=== PATIENT | female | born 1970 | race Hispanic/Latino ===

== ENCOUNTER 2016-06-06 20:25 | Inpatient (IN) | payer MEDICARE ==
[2016-06-06] MEDS ORDERED: NACL 0.9% 1000 ML 1,000 ML IV ONE (20:43)
--- NOTE | 2016-06-06 21:19 | Emergency Department Report ---
HPI - General Time Seen by Provider: 06/06/16 21:12 - HPI HPI: This is a 46-year-old Afro-[place] female who presents to the emergency department with what appears to be possible sepsis. The chart lists the complaint as shortness of breath and altered mental status. 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 The patient is nonverbal. The [place] worker who is with the patient is a poor historian about the reasons for this patient's presentation. The patient appears to present with a fast heart rate. Otherwise there is no known past medical history as she is a poor historian. ED Past Medical Hx - Past Medical History Previous Medical History?: Yes Hx Psychiatric Treatment: Yes (unknown) - Social History Smoking Status: Unknown if ever smoked - Medications Home Medications: Home Medications Medication Instructions Recorded Confirmed Last Taken Type Unobtainable 06/07/16 06/07/16 Unknown History ED Review of Systems ROS: Stated complaint: AMS, JASON Other details as noted in HPI Comment: Unobtainable due to pts medical conditions Physical Exam - Physical Exam Physical Exam: GENERAL: The patient is well-developed well-nourished. HEENT: Normocephalic. Atraumatic. Pupils equal reactive to light bilaterally. Patient has moist mucous membranes. NECK: Supple. Trachea is midline. CHEST/LUNGS: Coarse breath sounds. There is some rhonchi to the right base. Mild tachypnea but no accessory muscle use. There is no respiratory distress noted. HEART/CARDIOVASCULAR: Regular. There is moderate tachycardia. There is no gallop rub or murmur. ABDOMEN: Abdomen is soft, nontender. Patient has normal bowel sounds. There is no abdominal distention. SKIN: Skin is hot but dry. NEURO: Patient is awake but nonverbal. Patient displays catatonia. Does not follow any commands. MUSCULOSKELETAL: There is no tenderness or deformity. There is no limitation range of motion. There is no evidence of acute injury. ED Medical Decision Making - Lab Data Result diagrams: 06/06/16 21:56 06/06/16 21:56 - EKG Data -: EKG Interpreted by Me EKG shows normal: sinus rhythm, axis, intervals, QRS complexes (Left anterior fascicular block), ST-T waves Rate: normal - EKG Data When compared to previous EKG there are: previous EKG unavailable Interpretation: other (left anterior fascicular block) - Radiology Data Radiology results: report reviewed, image reviewed interpreted by me: Chest x-ray shows some infiltrates to the right lower lobe consistent with pneumonia. CT of the head does not show any bleed, shift, mass or any acute process. There are some signs of sinusitis. 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 Patient appears to be septic secondary to right lower lobe pneumonia. She was given IV fluid, antibiotics and there has been some improvement in her vitals. The patient has a leukocytosis, some hypernatremia, hypokalemia and some renal insufficiency. Unable to assess patient's altered mental status that she is constantly in a catatonic state at this point. She'll be admitted to the hospital for IV fluids , antibiotics and further evaluation and treatment and has been accepted for admission by the hospitalist, Dr. Maxwell. - Differential Diagnosis sepsis, pneumonia, brain bleed, CVA, UTI Critical Care Time: No Critical care attestation.: If time is entered above; I have spent that time in minutes in the direct care of this critically ill patient, excluding procedure time. ED Disposition Clinical Impression: Catatonia, Hypernatremia, Hypokalemia Sepsis Qualifiers: Sepsis type: sepsis due to unspecified organism Qualified Code(s): A41.9 - Sepsis, unspecified organism Pneumonia Qualifiers: Pneumonia type: due to unspecified organism Laterality: right Lung location: lower lobe of lung Qualified Code(s): J18.9 - Pneumonia, unspecified organism Disposition: OP ADMITTED IP TO THIS HOSP Is pt being admited?: Yes Condition: Fair Time of Disposition: 05:10
[2016-06-06 21:33] LABS: Urine Drugs of Abuse Note Disclamer
[2016-06-06 21:48] LABS: Mucus,Urine 3+ /HPF
[2016-06-06 21:57] LABS: Bilirubin,Urine Negative (Negative); Blood,Urine Large (Negative); Ketones,Urine 15 mg/dL (Negative); Urobilinogen,Urine < 2.0 mg/dL (<2.0)
[2016-06-06 21:58] LABS: Leukocyte Esterase,Urine Negative (Negative); Nitrite,Urine Negative (Negative)
--- NOTE | 2016-06-06 22:02 | XRay Report ---
FINAL REPORT PROCEDURE: XR CHEST 1V AP TECHNIQUE: Chest radiograph anteroposterior view. CPT 93194 HISTORY: possible Sepsis COMPARISON: No prior studies are available for comparison. FINDINGS: Heart: Normal. Mediastinum/Vessels: Normal. Lungs/Pleural space: The lungs are well-expanded. There are infiltrates at the right lung base. There are no effusions or pneumothoraces per. Bony thorax: No acute osseous abnormality. Life support devices: None. IMPRESSION: Right lower lobe pneumonitis..
[2016-06-06 22:16] LABS: Hematocrit 45.9 % (30.3-42.9); Hemoglobin 15.3 gm/dl (10.1-14.3); Mean Corpuscular HGB Conc 33 % (30-34); Mean Corpuscular Hemoglobin 30 pg (28-32); Mean Corpuscular Volume 90 fl (79-97); Platelet Count 198 K/mm3 (140-440); Red Cell Distribution Width 13.5 % (13.2-15.2); White Blood Count 17.6 K/mm3 (4.5-11.0)
[2016-06-06] MEDS ORDERED: ZITHROMAX 500 MG in NACL 0.9% 250ML 250 ML IV ONE (22:21)
[2016-06-06] MEDS ORDERED: ROCEPHIN/NS 1 GM/50 ML 50 ML IV ONE (22:21)
[2016-06-06 22:25] LABS: INR 1.28 (0.87-1.13)
[2016-06-06 22:41] LABS: Albumin 4.3 g/dL (3.9-5); Albumin/Globulin Ratio 1.3 %; BUN/Creatinine Ratio 28.46; Chloride 104.4 mmol/L (98-107); Total Protein 7.5 g/dL (6.3-8.2)
[2016-06-06 23:36] LABS: Blastocytes % (Manual) 0 %
[2016-06-06 23:37] LABS: Basophils % (Manual) 0 % (0.0-1.8); Eosinophils % (Manual) 0 % (0.0-4.3); Platelet Estimate Consistent w Auto; RBC Morphology Normal
[2016-06-06 23:38] LABS: Diff Status Complete
[2016-06-06] MEDS: KCL 10MEQ/100ML 100 ML IV SCH (23:39)
[2016-06-07] MEDS: KCL 10MEQ/100ML 100 ML IV SCH ×3 (01:00→03:12)
--- NOTE | 2016-06-07 02:47 | Cat Scan Report ---
FINAL REPORT PROCEDURE: CT HEAD/BRAIN WO CON TECHNIQUE: Computerized tomography of the head was performed without contrast material. HISTORY: AMS COMPARISON: No prior studies are available for comparison. FINDINGS: Skull and scalp: Normal. Paranasal sinuses: There fluid in the sphenoid sinus. The paranasal sinuses are otherwise clear.. Ventricles and subarachnoid spaces: Normal. Cerebrum: No evidence of hemorrhage, acute infarction or mass . Cerebellum and brainstem: No evidence of hemorrhage, acute infarction or mass. Vasculature: Normal. Comments: None. IMPRESSION: There is no intracranial abnormality. There is sphenoid sinusitis.
[2016-06-07] MEDS ORDERED: MILK OF MAGNESIA PO PRN (03:41)
[2016-06-07] MEDS ORDERED: DULCOLAX PR PRN (03:41)
--- NOTE | 2016-06-07 03:41 | History and Physical Report ---
History of Present Illness Date of examination: 06/07/16 Date of admission: 06/07/16 Chief complaint: SOB, tachycardia History of present illness: This is a 46-year-old female presents from [facility] for tachycardia and tachypnea/dyspnea. The patient and the [place] worker and that has accompanied the patient is unable to give any history. All the history was obtained from the [place] and ER record. 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 Patient developed tachycardia and shortness of breath which prompted the transferred to our facility for further evaluation. Patient does not respond to any questions. Past History Past Medical History: other (schizophrenia) Past Surgical History: Other (unknown due to mental status) Social history: other (unknown due to mental status) Family history: other (unknown due to mental status) Medications and Allergies Allergies Allergy/AdvReac Type Severity Reaction Status Date / Time No Known Allergies Allergy Verified 06/06/16 21:14 Review of Systems ROS unobtainable: due to mental status Exam - Constitutional Vitals: Temp Pulse Resp BP Pulse Ox 113 H 20 119/74 90 06/07/16 01:00 06/07/16 01:00 06/07/16 01:00 06/07/16 01:00 General appearance: Present: no acute distress, well-nourished - EENT Eyes: Present: PERRL ENT: hearing intact, clear oral mucosa - Neck Neck: Present: supple, normal ROM - Respiratory Respiratory effort: normal Respiratory: bilateral: diminished, rhonchi (R>L) - Cardiovascular Heart Sounds: Present: S1 & S2. Absent: rub, click - Extremities Extremities: pulses symmetrical, No edema Peripheral Pulses: within normal limits - Abdominal General gastrointestinal: Present: soft, non-tender, non-distended, normal bowel sounds Female genitourinary: Present: normal - Integumentary Integumentary: Present: clear, warm, dry - Musculoskeletal Musculoskeletal: gait normal, strength equal bilaterally - Psychiatric Psychiatric: appropriate mood/affect, intact judgment & insight - Neurologic Neurologic: CNII-XII intact, moves all extremities Results - Labs CBC & Chem 7: 06/06/16 21:56 06/06/16 21:56 Labs: Laboratory Last Values WBC 17.6 K/mm3 (4.5-11.0) H 06/06/16 21:56 RBC 5.10 M/mm3 (3.65-5.03) H 06/06/16 21:56 Hgb 15.3 gm/dl (10.1-14.3) H 06/06/16 21:56 Hct 45.9 % (30.3-42.9) H 06/06/16 21:56 MCV 90 fl (79-97) 06/06/16 21:56 MCH 30 pg (28-32) 06/06/16 21:56 MCHC 33 % (30-34) 06/06/16 21:56 RDW 13.5 % (13.2-15.2) 06/06/16 21:56 Plt Count 198 K/mm3 (140-440) 06/06/16 21:56 Add Manual Diff Complete 06/06/16 21:56 Total Counted 100 06/06/16 21:56 Seg Neutrophils % Bank Guard 06/06/16 21:56 Seg Neuts % (Manual) 95.0 % (40.0-70.0) H 06/06/16 21:56 Band Neutrophils % 1.0 % 06/06/16 21:56 Lymphocytes % (Manual) 3.0 % (13.4-35.0) L 06/06/16 21:56 Reactive Lymphs % (Man) 0 % 06/06/16 21:56 Monocytes % (Manual) 1.0 % (0.0-7.3) 06/06/16 21:56 Eosinophils % (Manual) 0 % (0.0-4.3) 06/06/16 21:56 Basophils % (Manual) 0 % (0.0-1.8) 06/06/16 21:56 Metamyelocytes % 0 % 06/06/16 21:56 Myelocytes % 0 % 06/06/16 21:56 Promyelocytes % 0 % 06/06/16 21:56 Blast Cells % 0 % 06/06/16 21:56 Nucleated RBC % Not Reportable 06/06/16 21:56 Seg Neutrophils # Man 16.7 K/mm3 (1.8-7.7) H 06/06/16 21:56 Band Neutrophils # 0.2 K/mm3 06/06/16 21:56 Lymphocytes # (Manual) 0.5 K/mm3 (1.2-5.4) L 06/06/16 21:56 Abs React Lymphs (Man) 0.0 K/mm3 06/06/16 21:56 Monocytes # (Manual) 0.2 K/mm3 (0.0-0.8) 06/06/16 21:56 Eosinophils # (Manual) 0.0 K/mm3 (0.0-0.4) 06/06/16 21:56 Basophils # (Manual) 0.0 K/mm3 (0.0-0.1) 06/06/16 21:56 Metamyelocytes # 0.0 K/mm3 06/06/16 21:56 Myelocytes # 0.0 K/mm3 06/06/16 21:56 Promyelocytes # 0.0 K/mm3 06/06/16 21:56 Blast Cells # 0.0 K/mm3 06/06/16 21:56 WBC Morphology Not Reportable 06/06/16 21:56 Hypersegmented Neuts Not Reportable 06/06/16 21:56 Hyposegmented Neuts Not Reportable 06/06/16 21:56 Hypogranular Neuts Not Reportable 06/06/16 21:56 Smudge Cells Not Reportable 06/06/16 21:56 Toxic Granulation Not Reportable 06/06/16 21:56 Toxic Vacuolation Not Reportable 06/06/16 21:56 Dohle Bodies Not Reportable 06/06/16 21:56 Pelger-Huet Anomaly Not Reportable 06/06/16 21:56 Guerda Rods Not Reportable 06/06/16 21:56 Platelet Estimate Consistent w auto 06/06/16 21:56 Clumped Platelets Not Reportable 06/06/16 21:56 Plt Clumps, EDTA Not Reportable 06/06/16 21:56 Large Platelets Not Reportable 06/06/16 21:56 Giant Platelets Not Reportable 06/06/16 21:56 Platelet Satelliting Not Reportable 06/06/16 21:56 Plt Morphology Comment Not Reportable 06/06/16 21:56 RBC Morphology Normal 06/06/16 21:56 Dimorphic RBCs Not Reportable 06/06/16 21:56 Polychromasia Not Reportable 06/06/16 21:56 Hypochromasia Not Reportable 06/06/16 21:56 Poikilocytosis Not Reportable 06/06/16 21:56 Anisocytosis Not Reportable 06/06/16 21:56 Microcytosis Not Reportable 06/06/16 21:56 Macrocytosis Not Reportable 06/06/16 21:56 Spherocytes Not Reportable 06/06/16 21:56 Pappenheimer Bodies Not Reportable 06/06/16 21:56 Sickle Cells Not Reportable 06/06/16 21:56 Target Cells Not Reportable 06/06/16 21:56 Tear Drop Cells Not Reportable 06/06/16 21:56 Ovalocytes Not Reportable 06/06/16 21:56 Helmet Cells Not Reportable 06/06/16 21:56 [place] Bodies Not Reportable 06/06/16 21:56 Frost Rings Not Reportable 06/06/16 21:56 Stacy Cells Not Reportable 06/06/16 21:56 Bite Cells Not Reportable 06/06/16 21:56 Crenated Cell Not Reportable 06/06/16 21:56 Elliptocytes Not Reportable 06/06/16 21:56 Acanthocytes (Spur) Not Reportable 06/06/16 21:56 Rouleaux Not Reportable 06/06/16 21:56 Hemoglobin C Crystals Not Reportable 06/06/16 21:56 Schistocytes Not Reportable 06/06/16 21:56 Malaria parasites Not Reportable 06/06/16 21:56 Chago Bodies Not Reportable 06/06/16 21:56 Hem Pathologist Commnt No 06/06/16 21:56 PT 15.9 Sec. (12.2-14.9) H 06/06/16 21:56 INR 1.28 (0.87-1.13) H 06/06/16 21:56 VBG pH 7.437 (7.320-7.420) H 06/06/16 21:56 Sodium 150 mmol/L (137-145) H 06/06/16 21:56 Potassium 3.0 mmol/L (3.6-5.0) L 06/06/16 21:56 Chloride 104.4 mmol/L (98-107) 06/06/16 21:56 Carbon Dioxide 25 mmol/L (22-30) 06/06/16 21:56 Anion Gap 24 mmol/L 06/06/16 21:56 BUN 37 mg/dL (7-17) H 06/06/16 21:56 Creatinine 1.3 mg/dL (0.7-1.2) H 06/06/16 21:56 Estimated GFR 44 ml/min 06/06/16 21:56 BUN/Creatinine Ratio 28.46 % 06/06/16 21:56 Glucose 107 mg/dL (65-100) H 06/06/16 21:56 Lactic Acid 1.0 mmol/L (0.7-2.0) 06/06/16 23:35 Calcium 9.0 mg/dL (8.4-10.2) 06/06/16 21:56 Total Bilirubin 1.0 mg/dL (0.1-1.2) 06/06/16 21:56 AST 195 units/L (5-40) H 06/06/16 21:56 ALT 75 units/L (7-56) H 06/06/16 21:56 Alkaline Phosphatase 56 units/L (35-129) 06/06/16 21:56 Total Protein 7.5 g/dL (6.3-8.2) 06/06/16 21:56 Albumin 4.3 g/dL (3.9-5) 06/06/16 21:56 Albumin/Globulin Ratio 1.3 % 06/06/16 21:56 Urine Color Dark yellow (Yellow) 06/06/16 21:23 Urine Turbidity Clear (Clear) 06/06/16 21:23 Urine pH 6.0 (5.0-7.0) 06/06/16 21:23 Ur Specific [place] 1.025 (1.003-1.030) 06/06/16 21:23 Urine Protein 30 mg/dl mg/dL (Negative) 06/06/16 21:23 Urine Glucose (UA) Negative mg/dL (Negative) 06/06/16 21:23 Urine Ketones 15 mg/dL (Negative) 06/06/16 21:23 Urine Blood Large (Negative) 06/06/16 21:23 Urine Nitrite Negative (Negative) 06/06/16 21:23 Ur Reducing Substances Not Reportable 06/06/16 21:23 Urine Bilirubin Negative (Negative) 06/06/16 21:23 Urine Ictotest Not Reportable 06/06/16 21:23 Urine Urobilinogen < 2.0 mg/dL (<2.0) 06/06/16 21:23 Ur Leukocyte Esterase Negative (Negative) 06/06/16 21:23 Urine WBC (Auto) 9.0 /HPF (0.0-6.0) H 06/06/16 21:23 Urine RBC (Auto) 4.0 /HPF (0.0-6.0) 06/06/16 21:23 U Epithel Cells (Auto) 2.0 /HPF (0-13.0) 06/06/16 21:23 Urine Mucus 3+ /HPF 06/06/16 21:23 Urine HCG, Qual Negative (Negative) 06/06/16 21:23 Urine Opiates Screen Presumptive negative 06/06/16 21:23 Urine Methadone Screen Presumptive negative 06/06/16 21:23 Ur Barbiturates Screen Presumptive negative 06/06/16 21:23 Ur Phencyclidine Scrn Presumptive negative 06/06/16 21:23 Ur Amphetamines Screen Presumptive negative 06/06/16 21:23 U Benzodiazepines Scrn Presumptive negative 06/06/16 21:23 Urine Cocaine Screen Presumptive negative 06/06/16 21:23 U Marijuana (THC) Screen Presumptive negative 06/06/16 21:23 Drugs of Abuse Note Disclamer 06/06/16 21:23 Plasma/Serum Alcohol < 0.01 gm% (0-0.07) 06/06/16 21:56 Assessment and Plan Assessment and plan: 1. Sepsis. Patient will be admitted and placed on the sepsis pathway. Follow- up blood and sputum cultures. Trend lactate levels. 2. Healthcare associated right lower lobe pneumonia. Patient will be started on the pneumonia pathway with IV antibiotics. Swallowing evaluation to rule out aspiration. 3. Acute renal failure. Etiology likely secondary to vasomotor nephropathy +/- acute kidney injury from ATN/sepsis. Patient will receive IV fluid hydration. Recheck BMP in the morning. 4. Schizophrenia. Patient will have further follow-up with psychiatry when stable. 5. Hypokalemia. Replete potassium. 6. DVT prophylaxis. Lovenox daily.
--- NOTE | 2016-06-07 05:31 | Admit Criteria Form ---
Admission Criteria Documentation: SEPSIS and OTHER FEBRILE ILLNESS, W/O FOCAL INFECTION Clinical Indications for Admission to Inpatient Care ( Place 'X' for any and all applicable criteria): Admission is indicated for ANY ONE of the following (1)(2)(3)(4): [ ] I. Bacteremia [ ]II. Suspected or identified specific infection requiring hospitalization (eg, meningitis, endocarditis) [ ]III. Hemodynamic instability [X]IV. Altered mental status [ ]V. Failure or unavailability of outpatient antimicrobial treatment [ ]. Hypoxemia [ ]VII. Seizures [ ]VIII. High-risk febrile neutropenia [ ]IX. Need for parenteral antibiotic in patient who is likely to abuse vascular access device (eg, injection drug user) [A](7) [ ]X. Temperature greater than 104.9 degrees F (40.5 degrees C) (oral) [X ]XI. Inpatient admission required rather than observation care because of ANY ONE of the following: [ ]1) Specific infection identified that is too severe for outpatient treatment or observation care trial [ ]2) Metabolic disorder (eg, hypoglycemia, hyperglycemia, metabolic acidosis) that is severe or persistent [ ]3) Temperature greater than 103.1 degrees F (39.5 degrees C) ( oral) that is not responsive to observation care treatment [ ]4) IV fluid to replace significant ongoing (eg, for over 24 hours) losses (> 3 L/m2 per day) [ ]5) Supplemental oxygen or respiratory treatments for over 24 hours that is performable only in acute inpatient setting [ ]6) Parenteral nutrition regimen need that must be implemented on inpatient basis [ ]7) Strict or protective (eg, laminar flow) isolation [X ]8) Other condition, treatment or monitoring requiring inpatient admission Extended stay beyond goal length of stay may be needed for(1)(3) [ ]a) Sepsis or septic shock(22) [ ]b) Positive blood cultures [ ]c) Insufficient oral intake [ ]d) High-risk febrile neutropenia(29)(30) [ ]e) Continued fever and clinical instability [ ]f) Clinically active comorbid illness (e.g,heart failure, renal failure , diabetes) The original [facility] content created by Khari Munoz has been revised. The portions of the content which have been revised are identified through the use of italic text or in bold, and [email or web address] has neither reviewed nor approved the modified material. All other unmodified content is copyright [facility]. Please see references footnoted in the original [facility] edition 2016 Admission Criteria Met: Yes
[2016-06-07] MEDS: D5W/0.45% NACL/KCL 20 MEQ 1,000 ML IV SCH ×2 (06:56→22:50)
[2016-06-07] MEDS: ZOSYN/NS 4.5GM/100ML 100 ML IV SCH ×4 (07:58→23:37)
[2016-06-07] MEDS ORDERED: K-DUR PO ONE (10:00)
[2016-06-07] MEDS: LOVENOX SUB-Q SCH (10:45)
[2016-06-07] MEDS: LEVAQUIN 750MG/150ML 150 ML IV SCH (10:45)
[2016-06-07 10:54] LABS: BUN/Creatinine Ratio 32.72; Calcium 8.6 mg/dL (8.4-10.2); Chloride 108.8 mmol/L (98-107); Potassium 3.6 mmol/L (3.6-5.0)
--- NOTE | 2016-06-07 14:39 | Event Note ---
Date: 06/07/16 Patient seen and examined, noted some clinical improvement with respiratory status but still tachycardic, will increase fluids, start po intake, obtain speech eval monitor Labs and obtain psych consultation.
[2016-06-07 14:43] LABS: Calcium 8.6 mg/dL (8.4-10.2); Chloride 110.1 mmol/L (98-107); Potassium 3.5 mmol/L (3.6-5.0)
[2016-06-07] MEDS: TYLENOL PR PRN (16:04)
[2016-06-07] MEDS ORDERED: HALDOL IM PRN (23:34)
[2016-06-08] MEDS: ZOSYN/NS 4.5GM/100ML 100 ML IV SCH ×3 (06:18→17:55)
[2016-06-08 07:09] LABS: Basophils % (Auto) 0.1 % (0.0-1.8); Eosinophils % (Auto) 0.2 % (0.0-4.3); Hematocrit 41.8 % (30.3-42.9); Hemoglobin 13.8 gm/dl (10.1-14.3); Mean Corpuscular HGB Conc 33 % (30-34); Mean Corpuscular Hemoglobin 30 pg (28-32); Mean Corpuscular Volume 90 fl (79-97); Platelet Count 185 K/mm3 (140-440); Red Blood Count 4.65 M/mm3 (3.65-5.03); White Blood Count 10.5 K/mm3 (4.5-11.0)
[2016-06-08 07:13] LABS: Albumin 3.7 g/dL (3.9-5); Albumin/Globulin Ratio 1.3 %; BUN/Creatinine Ratio 26.66; Bilirubin,Total 0.7 mg/dL (0.1-1.2); Calcium 8.7 mg/dL (8.4-10.2); Potassium 3.8 mmol/L (3.6-5.0); Total Protein 6.6 g/dL (6.3-8.2)
[2016-06-08] MEDS: LEVAQUIN 750MG/150ML 150 ML IV SCH (09:50)
[2016-06-08] MEDS: LOVENOX SUB-Q SCH (09:50)
[2016-06-08 10:44] LABS: Sodium, Urine 26 mEq/L
[2016-06-08] MEDS: D5W 1,000 ML IV SCH ×2 (11:30→21:38)
--- NOTE | 2016-06-08 12:34 | Progress Note ---
Assessment and Plan Assessment and plan: 46-year-old female presents from [facility] for tachycardia and tachypnea/dyspnea. The patient and the [facility] worker and that has accompanied the patient is unable to give any history. All the history was obtained from the [facility] and ER record. 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 Patient developed tachycardia and shortness of breath which prompted the transferred to our facility for further evaluation. Patient does not respond to any questions. 1. Sepsis. Leukocytosis improving Continue to follow cultures, continue antibiotics at this point. 2. Healthcare associated right lower lobe pneumonia. Rule out gram-negative pneumonia. As noted above. Aspiration precautions. Speech evaluation pending. 3. Acute renal failure. Etiology likely secondary to vasomotor nephropathy +/- acute kidney injury from ATN/sepsis. Patient will receive IV fluid hydration. Recheck BMP in the morning. 4. Hypernatremia-we'll check urine lites. Change IV fluids to D5W. Monitor sodium every 6 hours. 5. Schizophrenia. Awaiting psych input. 6. Hypokalemia. Replete potassium. 7. DVT prophylaxis. Lovenox daily History Interval history: Follow sepsis Patient seen and examined this morning in no acute distress, she remains Non verbal, ?catatonic state from her psych hx. No adverse event noted by nursing. Was febrile overnight. No adverse events reported to me by nursing staff Hospitalist Physical - Physical exam Narrative exam: VITAL SIGNS: Reviewed. GENERAL: The patient appeared ill otherwise in no acute distress. Vital signs as documented. HEAD: No signs of head trauma. EYES: Pupils are equal. Extraocular motions intact. EARS: Hearing grossly intact. MOUTH: Oropharynx is normal. NECK: No adenopathy, no JVD. CHEST: Chest with diminished breath sounds bilaterally. No wheezes, rales, or rhonchi. CARDIAC: Regular rate and rhythm. S1 and S2, without murmurs, gallops, or rubs. VASCULAR: Trace Edema. Peripheral pulses normal and equal in all extremities. ABDOMEN: Soft, without detectable tenderness. No sign of distention. No rebound or guarding, and no masses palpated. Bowel Sounds normal. MUSCULOSKELETAL: Good range of motion of all major joints. Extremities without clubbing, cyanosis or trace edema bilateral upper extremities. NEUROLOGIC EXAM: awake but lathergic, not following commands. No focal sensory or strength deficits. moves head in direction of speaker PSYCHIATRIC: Mood normal. SKIN: mild bulea in the right wrist area- 3 spots. no erythema - Constitutional Vitals: Temp Pulse Resp BP Pulse Ox 99.5 F 88 20 125/68 98 06/08/16 08:00 06/08/16 09:00 06/08/16 09:00 06/08/16 09:00 06/08/16 09:25 General appearance: Present: no acute distress, well-nourished Results - Labs CBC & Chem 7: 06/08/16 06:39 06/08/16 09:37 Labs: Laboratory Last Values WBC 10.5 K/mm3 (4.5-11.0) 06/08/16 06:39 RBC 4.65 M/mm3 (3.65-5.03) 06/08/16 06:39 Hgb 13.8 gm/dl (10.1-14.3) 06/08/16 06:39 Hct 41.8 % (30.3-42.9) 06/08/16 06:39 MCV 90 fl (79-97) 06/08/16 06:39 MCH 30 pg (28-32) 06/08/16 06:39 MCHC 33 % (30-34) 06/08/16 06:39 RDW 14.0 % (13.2-15.2) 06/08/16 06:39 Plt Count 185 K/mm3 (140-440) 06/08/16 06:39 Lymph % (Auto) 6.0 % (13.4-35.0) L 06/08/16 06:39 [place] % (Auto) 5.5 % (0.0-7.3) 06/08/16 06:39 Eos % (Auto) 0.2 % (0.0-4.3) 06/08/16 06:39 Baso % (Auto) 0.1 % (0.0-1.8) 06/08/16 06:39 Lymph # 0.6 K/mm3 (1.2-5.4) L 06/08/16 06:39 [place] # 0.6 K/mm3 (0.0-0.8) 06/08/16 06:39 Eos # 0.0 K/mm3 (0.0-0.4) 06/08/16 06:39 Baso # 0.0 K/mm3 (0.0-0.1) 06/08/16 06:39 Add Manual Diff Complete 06/06/16 21:56 Total Counted 100 06/06/16 21:56 Seg Neutrophils % 88.2 % (40.0-70.0) H 06/08/16 06:39 Seg Neuts % (Manual) 95.0 % (40.0-70.0) H 06/06/16 21:56 Band Neutrophils % 1.0 % 06/06/16 21:56 Lymphocytes % (Manual) 3.0 % (13.4-35.0) L 06/06/16 21:56 Reactive Lymphs % (Man) 0 % 06/06/16 21:56 Monocytes % (Manual) 1.0 % (0.0-7.3) 06/06/16 21:56 Eosinophils % (Manual) 0 % (0.0-4.3) 06/06/16 21:56 Basophils % (Manual) 0 % (0.0-1.8) 06/06/16 21:56 Metamyelocytes % 0 % 06/06/16 21:56 Myelocytes % 0 % 06/06/16 21:56 Promyelocytes % 0 % 06/06/16 21:56 Blast Cells % 0 % 06/06/16 21:56 Nucleated RBC % Not Reportable 06/06/16 21:56 Seg Neutrophils # 9.2 K/mm3 (1.8-7.7) H 06/08/16 06:39 Seg Neutrophils # Man 16.7 K/mm3 (1.8-7.7) H 06/06/16 21:56 Band Neutrophils # 0.2 K/mm3 06/06/16 21:56 Lymphocytes # (Manual) 0.5 K/mm3 (1.2-5.4) L 06/06/16 21:56 Abs React Lymphs (Man) 0.0 K/mm3 06/06/16 21:56 Monocytes # (Manual) 0.2 K/mm3 (0.0-0.8) 06/06/16 21:56 Eosinophils # (Manual) 0.0 K/mm3 (0.0-0.4) 06/06/16 21:56 Basophils # (Manual) 0.0 K/mm3 (0.0-0.1) 06/06/16 21:56 Metamyelocytes # 0.0 K/mm3 06/06/16 21:56 Myelocytes # 0.0 K/mm3 06/06/16 21:56 Promyelocytes # 0.0 K/mm3 06/06/16 21:56 Blast Cells # 0.0 K/mm3 06/06/16 21:56 WBC Morphology Not Reportable 06/06/16 21:56 Hypersegmented Neuts Not Reportable 06/06/16 21:56 Hyposegmented Neuts Not Reportable 06/06/16 21:56 Hypogranular Neuts Not Reportable 06/06/16 21:56 Smudge Cells Not Reportable 06/06/16 21:56 Toxic Granulation Not Reportable 06/06/16 21:56 Toxic Vacuolation Not Reportable 06/06/16 21:56 Dohle Bodies Not Reportable 06/06/16 21:56 Pelger-Huet Anomaly Not Reportable 06/06/16 21:56 Guerda Rods Not Reportable 06/06/16 21:56 Platelet Estimate Consistent w auto 06/06/16 21:56 Clumped Platelets Not Reportable 06/06/16 21:56 Plt Clumps, EDTA Not Reportable 06/06/16 21:56 Large Platelets Not Reportable 06/06/16 21:56 Giant Platelets Not Reportable 06/06/16 21:56 Platelet Satelliting Not Reportable 06/06/16 21:56 Plt Morphology Comment Not Reportable 06/06/16 21:56 RBC Morphology Normal 06/06/16 21:56 Dimorphic RBCs Not Reportable 06/06/16 21:56 Polychromasia Not Reportable 06/06/16 21:56 Hypochromasia Not Reportable 06/06/16 21:56 Poikilocytosis Not Reportable 06/06/16 21:56 Anisocytosis Not Reportable 06/06/16 21:56 Microcytosis Not Reportable 06/06/16 21:56 Macrocytosis Not Reportable 06/06/16 21:56 Spherocytes Not Reportable 06/06/16 21:56 Pappenheimer Bodies Not Reportable 06/06/16 21:56 Sickle Cells Not Reportable 06/06/16 21:56 Target Cells Not Reportable 06/06/16 21:56 Tear Drop Cells Not Reportable 06/06/16 21:56 Ovalocytes Not Reportable 06/06/16 21:56 Helmet Cells Not Reportable 06/06/16 21:56 [place] Bodies Not Reportable 06/06/16 21:56 [place] Rings Not Reportable 06/06/16 21:56 Stacy Cells Not Reportable 06/06/16 21:56 Bite Cells Not Reportable 06/06/16 21:56 Crenated Cell Not Reportable 06/06/16 21:56 Elliptocytes Not Reportable 06/06/16 21:56 Acanthocytes (Spur) Not Reportable 06/06/16 21:56 Rouleaux Not Reportable 06/06/16 21:56 Hemoglobin C Crystals Not Reportable 06/06/16 21:56 Schistocytes Not Reportable 06/06/16 21:56 Malaria parasites Not Reportable 06/06/16 21:56 Chago Bodies Not Reportable 06/06/16 21:56 Hem Pathologist Commnt No 06/06/16 21:56 PT 15.9 Sec. (12.2-14.9) H 06/06/16 21:56 INR 1.28 (0.87-1.13) H 06/06/16 21:56 VBG pH 7.437 (7.320-7.420) H 06/06/16 21:56 Sodium 156 mmol/L (137-145) H 06/08/16 09:37 Potassium 3.8 mmol/L (3.6-5.0) 06/08/16 06:39 Chloride 118.0 mmol/L (98-107) H 06/08/16 06:39 Carbon Dioxide 28 mmol/L (22-30) 06/08/16 06:39 Anion Gap 18 mmol/L 06/08/16 06:39 BUN 32 mg/dL (7-17) H 06/08/16 06:39 Creatinine 1.2 mg/dL (0.7-1.2) 06/08/16 06:39 Estimated GFR 48 ml/min 06/08/16 06:39 BUN/Creatinine Ratio 26.66 % 06/08/16 06:39 Glucose 145 mg/dL (65-100) H 06/08/16 06:39 Osmolality 360 Mosm/kg 06/08/16 09:36 Lactic Acid 1.5 mmol/L (0.7-2.0) 06/07/16 06:49 Calcium 8.7 mg/dL (8.4-10.2) 06/08/16 06:39 Total Bilirubin 0.7 mg/dL (0.1-1.2) 06/08/16 06:39 AST 158 units/L (5-40) H 06/08/16 06:39 ALT 87 units/L (7-56) H 06/08/16 06:39 Alkaline Phosphatase 51 units/L (35-129) 06/08/16 06:39 Total Protein 6.6 g/dL (6.3-8.2) 06/08/16 06:39 Albumin 3.7 g/dL (3.9-5) L 06/08/16 06:39 Albumin/Globulin Ratio 1.3 % 06/08/16 06:39 Urine Color Dark yellow (Yellow) 06/06/16 21:23 Urine Turbidity Clear (Clear) 06/06/16 21:23 Urine pH 6.0 (5.0-7.0) 06/06/16 21:23 Ur Specific [place] 1.025 (1.003-1.030) 06/06/16 21:23 Urine Protein 30 mg/dl mg/dL (Negative) 06/06/16 21:23 Urine Glucose (UA) Negative mg/dL (Negative) 06/06/16 21:23 Urine Ketones 15 mg/dL (Negative) 06/06/16 21:23 Urine Blood Large (Negative) 06/06/16 21:23 Urine Nitrite Negative (Negative) 06/06/16 21:23 Ur Reducing Substances Not Reportable 06/06/16 21:23 Urine Bilirubin Negative (Negative) 06/06/16 21:23 Urine Ictotest Not Reportable 06/06/16 21:23 Urine Urobilinogen < 2.0 mg/dL (<2.0) 06/06/16 21:23 Ur Leukocyte Esterase Negative (Negative) 06/06/16 21:23 Urine WBC (Auto) 9.0 /HPF (0.0-6.0) H 06/06/16 21:23 Urine RBC (Auto) 4.0 /HPF (0.0-6.0) 06/06/16 21:23 U Epithel Cells (Auto) 2.0 /HPF (0-13.0) 06/06/16 21:23 Urine Mucus 3+ /HPF 06/06/16 21:23 Urine Osmolality 795 Mosm/kg 06/08/16 10:13 Urine Sodium 26 mEq/L 06/08/16 10:13 Urine HCG, Qual Negative (Negative) 06/06/16 21:23 Urine Opiates Screen Presumptive negative 06/06/16 21:23 Urine Methadone Screen Presumptive negative 06/06/16 21:23 Ur Barbiturates Screen Presumptive negative 06/06/16 21:23 Ur Phencyclidine Scrn Presumptive negative 06/06/16 21:23 Ur Amphetamines Screen Presumptive negative 06/06/16 21:23 U Benzodiazepines Scrn Presumptive negative 06/06/16 21:23 Urine Cocaine Screen Presumptive negative 06/06/16 21:23 U Marijuana (THC) Screen Presumptive negative 06/06/16 21:23 Drugs of Abuse Note Disclamer 06/06/16 21:23 Plasma/Serum Alcohol < 0.01 gm% (0-0.07) 06/06/16 21:56 Microbiology 06/06/16 21:23 Urine,Catheterized - Indwelling Catheter Urine Culture - Final 06/06/16 21:56 Peripheral/Venous Blood Culture - Preliminary NO GROWTH AFTER 24 HOURS 06/06/16 21:56 Peripheral/Venous Blood Culture - Preliminary NO GROWTH AFTER 24 HOURS - Imaging and Cardiology Chest x-ray: image reviewed (RLL infiltrate)
[2016-06-09] MEDS: ZOSYN/NS 4.5GM/100ML 100 ML IV SCH ×3 (00:29→12:16)
[2016-06-09 07:41] LABS: BUN/Creatinine Ratio 26.66; Blood Urea Nitrogen 24 mg/dL (7-17); Calcium 8.7 mg/dL (8.4-10.2); Carbon Dioxide 31 mmol/L (22-30); Chloride 118.8 mmol/L (98-107); Glucose 115 mg/dL (65-100); Potassium 3.6 mmol/L (3.6-5.0); Sodium 160 mmol/L (137-145)
[2016-06-09 07:42] LABS: Anion Gap 14 mmol/L
[2016-06-09] MEDS: LEVAQUIN 750MG/150ML 150 ML IV SCH (11:21)
[2016-06-09] MEDS: LOVENOX SUB-Q SCH (11:21)
[2016-06-09] MEDS: D5W 1,000 ML IV SCH (11:39)
--- NOTE | 2016-06-09 12:24 | Progress Note ---
Assessment and Plan Assessment and plan: 46-year-old female presents from [facility] for tachycardia and tachypnea/dyspnea. The patient and the [facility] worker and that has accompanied the patient is unable to give any history. All the history was obtained from the [facility] and ER record. 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 Patient developed tachycardia and shortness of breath which prompted the transferred to our facility for further evaluation. Patient does not respond to any questions. 1. Sepsis. Leukocytosis improving Continue to follow cultures, continue antibiotics at this point. We'll discontinue Zosyn at this point continue Levaquin 2. Healthcare associated right lower lobe pneumonia. Rule out gram-negative pneumonia. As noted above. Aspiration precautions. Speech evaluation pending. 3. Acute renal failure. Etiology likely secondary to vasomotor nephropathy +/- acute kidney injury from ATN/sepsis. Patient will receive IV fluid hydration. Recheck BMP in the morning. 4. Hypernatremia-we'll check urine lites. Nephrology consultation Change IV fluids to D5W. Monitor sodium every 6 hours. 5. Schizophrenia. Awaiting psych input. I called psych again today. The family patient was initially on olanzapine, citalopram, trazodone. Was not taking the medications and subsequently was changed to IV medication which the family did not know the name. Became very lethargic and medication with drooling from the side of her mouth. They proceeded to take her to the hospital as she was not tolerating by mouth intake at the time. They are she lost a lot happen. We will at this time request records. 6. Hypokalemia. Replete potassium. 7.-Dysphagia-obtain GI evaluation. Speech evaluation noted 8. DVT prophylaxis. Lovenox daily History Interval history: Follow sepsis Patient seen and examined this morning in no acute distress, she remains Non verbal, ?catatonic state from her psych hx. but able to follow commands this morning. No adverse event noted by nursing. No other fever noted. Hospitalist Physical - Physical exam Narrative exam: VITAL SIGNS: Reviewed. GENERAL: The patient appeared ill otherwise in no acute distress. Vital signs as documented. HEAD: No signs of head trauma. EYES: Pupils are equal. Extraocular motions intact. EARS: Hearing grossly intact. MOUTH: Oropharynx is normal. NECK: No adenopathy, no JVD. CHEST: Chest with diminished breath sounds bilaterally. No wheezes, rales, or rhonchi. CARDIAC: Regular rate and rhythm. S1 and S2, without murmurs, gallops, or rubs. VASCULAR: Trace Edema. Peripheral pulses normal and equal in all extremities. ABDOMEN: Soft, without detectable tenderness. No sign of distention. No rebound or guarding, and no masses palpated. Bowel Sounds normal. MUSCULOSKELETAL: Good range of motion of all major joints. Extremities without clubbing, cyanosis or trace edema bilateral upper extremities. NEUROLOGIC EXAM: awake but lathergic, follows simple commands no focal sensory or strength deficits. moves head in direction of speaker PSYCHIATRIC: Mood normal. SKIN: mild bulea in the right wrist area- 3 spots. no erythema - Constitutional Vitals: Temp Pulse Resp BP Pulse Ox 98.5 F 78 16 139/88 99 06/09/16 07:00 06/09/16 07:00 06/09/16 07:00 06/09/16 07:00 06/09/16 10:00 General appearance: Present: no acute distress, well-nourished Results - Labs CBC & Chem 7: 06/08/16 06:39 06/09/16 07:02 Labs: Laboratory Last Values WBC 10.5 K/mm3 (4.5-11.0) 06/08/16 06:39 RBC 4.65 M/mm3 (3.65-5.03) 06/08/16 06:39 Hgb 13.8 gm/dl (10.1-14.3) 06/08/16 06:39 Hct 41.8 % (30.3-42.9) 06/08/16 06:39 MCV 90 fl (79-97) 06/08/16 06:39 MCH 30 pg (28-32) 06/08/16 06:39 MCHC 33 % (30-34) 06/08/16 06:39 RDW 14.0 % (13.2-15.2) 06/08/16 06:39 Plt Count 185 K/mm3 (140-440) 06/08/16 06:39 Lymph % (Auto) 6.0 % (13.4-35.0) L 06/08/16 06:39 [place] % (Auto) 5.5 % (0.0-7.3) 06/08/16 06:39 Eos % (Auto) 0.2 % (0.0-4.3) 06/08/16 06:39 Baso % (Auto) 0.1 % (0.0-1.8) 06/08/16 06:39 Lymph # 0.6 K/mm3 (1.2-5.4) L 06/08/16 06:39 [place] # 0.6 K/mm3 (0.0-0.8) 06/08/16 06:39 Eos # 0.0 K/mm3 (0.0-0.4) 06/08/16 06:39 Baso # 0.0 K/mm3 (0.0-0.1) 06/08/16 06:39 Add Manual Diff Complete 06/06/16 21:56 Total Counted 100 06/06/16 21:56 Seg Neutrophils % 88.2 % (40.0-70.0) H 06/08/16 06:39 Seg Neuts % (Manual) 95.0 % (40.0-70.0) H 06/06/16 21:56 Band Neutrophils % 1.0 % 06/06/16 21:56 Lymphocytes % (Manual) 3.0 % (13.4-35.0) L 06/06/16 21:56 Reactive Lymphs % (Man) 0 % 06/06/16 21:56 Monocytes % (Manual) 1.0 % (0.0-7.3) 06/06/16 21:56 Eosinophils % (Manual) 0 % (0.0-4.3) 06/06/16 21:56 Basophils % (Manual) 0 % (0.0-1.8) 06/06/16 21:56 Metamyelocytes % 0 % 06/06/16 21:56 Myelocytes % 0 % 06/06/16 21:56 Promyelocytes % 0 % 06/06/16 21:56 Blast Cells % 0 % 06/06/16 21:56 Nucleated RBC % Not Reportable 06/06/16 21:56 Seg Neutrophils # 9.2 K/mm3 (1.8-7.7) H 06/08/16 06:39 Seg Neutrophils # Man 16.7 K/mm3 (1.8-7.7) H 06/06/16 21:56 Band Neutrophils # 0.2 K/mm3 06/06/16 21:56 Lymphocytes # (Manual) 0.5 K/mm3 (1.2-5.4) L 06/06/16 21:56 Abs React Lymphs (Man) 0.0 K/mm3 06/06/16 21:56 Monocytes # (Manual) 0.2 K/mm3 (0.0-0.8) 06/06/16 21:56 Eosinophils # (Manual) 0.0 K/mm3 (0.0-0.4) 06/06/16 21:56 Basophils # (Manual) 0.0 K/mm3 (0.0-0.1) 06/06/16 21:56 Metamyelocytes # 0.0 K/mm3 06/06/16 21:56 Myelocytes # 0.0 K/mm3 06/06/16 21:56 Promyelocytes # 0.0 K/mm3 06/06/16 21:56 Blast Cells # 0.0 K/mm3 06/06/16 21:56 WBC Morphology Not Reportable 06/06/16 21:56 Hypersegmented Neuts Not Reportable 06/06/16 21:56 Hyposegmented Neuts Not Reportable 06/06/16 21:56 Hypogranular Neuts Not Reportable 06/06/16 21:56 Smudge Cells Not Reportable 06/06/16 21:56 Toxic Granulation Not Reportable 06/06/16 21:56 Toxic Vacuolation Not Reportable 06/06/16 21:56 Dohle Bodies Not Reportable 06/06/16 21:56 Pelger-Huet Anomaly Not Reportable 06/06/16 21:56 Guerda Rods Not Reportable 06/06/16 21:56 Platelet Estimate Consistent w auto 06/06/16 21:56 Clumped Platelets Not Reportable 06/06/16 21:56 Plt Clumps, EDTA Not Reportable 06/06/16 21:56 Large Platelets Not Reportable 06/06/16 21:56 Giant Platelets Not Reportable 06/06/16 21:56 Platelet Satelliting Not Reportable 06/06/16 21:56 Plt Morphology Comment Not Reportable 06/06/16 21:56 RBC Morphology Normal 06/06/16 21:56 Dimorphic RBCs Not Reportable 06/06/16 21:56 Polychromasia Not Reportable 06/06/16 21:56 Hypochromasia Not Reportable 06/06/16 21:56 Poikilocytosis Not Reportable 06/06/16 21:56 Anisocytosis Not Reportable 06/06/16 21:56 Microcytosis Not Reportable 06/06/16 21:56 Macrocytosis Not Reportable 06/06/16 21:56 Spherocytes Not Reportable 06/06/16 21:56 Pappenheimer Bodies Not Reportable 06/06/16 21:56 Sickle Cells Not Reportable 06/06/16 21:56 Target Cells Not Reportable 06/06/16 21:56 Tear Drop Cells Not Reportable 06/06/16 21:56 Ovalocytes Not Reportable 06/06/16 21:56 Helmet Cells Not Reportable 06/06/16 21:56 [place] Bodies Not Reportable 06/06/16 21:56 [place] Rings Not Reportable 06/06/16 21:56 Stacy Cells Not Reportable 06/06/16 21:56 Bite Cells Not Reportable 06/06/16 21:56 Crenated Cell Not Reportable 06/06/16 21:56 Elliptocytes Not Reportable 06/06/16 21:56 Acanthocytes (Spur) Not Reportable 06/06/16 21:56 Rouleaux Not Reportable 06/06/16 21:56 Hemoglobin C Crystals Not Reportable 06/06/16 21:56 Schistocytes Not Reportable 06/06/16 21:56 Malaria parasites Not Reportable 06/06/16 21:56 Chago Bodies Not Reportable 06/06/16 21:56 Hem Pathologist Commnt No 06/06/16 21:56 PT 15.9 Sec. (12.2-14.9) H 06/06/16 21:56 INR 1.28 (0.87-1.13) H 06/06/16 21:56 VBG pH 7.437 (7.320-7.420) H 06/06/16 21:56 Sodium 160 mmol/L (137-145) H 06/09/16 07:02 Potassium 3.6 mmol/L (3.6-5.0) 06/09/16 07:02 Chloride 118.8 mmol/L (98-107) H 06/09/16 07:02 Carbon Dioxide 31 mmol/L (22-30) H 06/09/16 07:02 Anion Gap 14 mmol/L 06/09/16 07:02 BUN 24 mg/dL (7-17) H 06/09/16 07:02 Creatinine 0.9 mg/dL (0.7-1.2) 06/09/16 07:02 Estimated GFR > 60 ml/min 06/09/16 07:02 BUN/Creatinine Ratio 26.66 % 06/09/16 07:02 Glucose 115 mg/dL (65-100) H 06/09/16 07:02 Osmolality 360 Mosm/kg 06/08/16 09:36 Lactic Acid 1.5 mmol/L (0.7-2.0) 06/07/16 06:49 Calcium 8.7 mg/dL (8.4-10.2) 06/09/16 07:02 Total Bilirubin 0.7 mg/dL (0.1-1.2) 06/08/16 06:39 AST 158 units/L (5-40) H 06/08/16 06:39 ALT 87 units/L (7-56) H 06/08/16 06:39 Alkaline Phosphatase 51 units/L (35-129) 06/08/16 06:39 Total Protein 6.6 g/dL (6.3-8.2) 06/08/16 06:39 Albumin 3.7 g/dL (3.9-5) L 06/08/16 06:39 Albumin/Globulin Ratio 1.3 % 06/08/16 06:39 Urine Color Dark yellow (Yellow) 06/06/16 21:23 Urine Turbidity Clear (Clear) 06/06/16 21:23 Urine pH 6.0 (5.0-7.0) 06/06/16 21:23 Ur Specific [place] 1.025 (1.003-1.030) 06/06/16 21:23 Urine Protein 30 mg/dl mg/dL (Negative) 06/06/16 21:23 Urine Glucose (UA) Negative mg/dL (Negative) 06/06/16 21:23 Urine Ketones 15 mg/dL (Negative) 06/06/16 21:23 Urine Blood Large (Negative) 06/06/16 21:23 Urine Nitrite Negative (Negative) 06/06/16 21:23 Ur Reducing Substances Not Reportable 06/06/16 21:23 Urine Bilirubin Negative (Negative) 06/06/16 21:23 Urine Ictotest Not Reportable 06/06/16 21:23 Urine Urobilinogen < 2.0 mg/dL (<2.0) 06/06/16 21:23 Ur Leukocyte Esterase Negative (Negative) 06/06/16 21:23 Urine WBC (Auto) 9.0 /HPF (0.0-6.0) H 06/06/16 21:23 Urine RBC (Auto) 4.0 /HPF (0.0-6.0) 06/06/16 21:23 U Epithel Cells (Auto) 2.0 /HPF (0-13.0) 06/06/16 21:23 Urine Mucus 3+ /HPF 06/06/16 21:23 Urine Osmolality 795 Mosm/kg 06/08/16 10:13 Urine Sodium 26 mEq/L 06/08/16 10:13 Urine HCG, Qual Negative (Negative) 06/06/16 21:23 Urine Opiates Screen Presumptive negative 06/06/16 21:23 Urine Methadone Screen Presumptive negative 06/06/16 21:23 Ur Barbiturates Screen Presumptive negative 06/06/16 21:23 Ur Phencyclidine Scrn Presumptive negative 06/06/16 21:23 Ur Amphetamines Screen Presumptive negative 06/06/16 21:23 U Benzodiazepines Scrn Presumptive negative 06/06/16 21:23 Urine Cocaine Screen Presumptive negative 06/06/16 21:23 U Marijuana (THC) Screen Presumptive negative 06/06/16 21:23 Drugs of Abuse Note Disclamer 06/06/16 21:23 Plasma/Serum Alcohol < 0.01 gm% (0-0.07) 06/06/16 21:56
[2016-06-09 13:03] LABS: Albumin 3.2 g/dL (3.9-5); Bilirubin,Total 0.8 mg/dL (0.1-1.2); Calcium 8.8 mg/dL (8.4-10.2); Chloride 115.1 mmol/L (98-107); Potassium 3.7 mmol/L (3.6-5.0); Total Protein 6.4 g/dL (6.3-8.2)
--- NOTE | 2016-06-09 13:08 | Consultation ---
History of Present Illness - Reason for Consult Consult date: 06/09/16 acute renal failure, hypernatremia - History of Present Illness Patient is a 46 year old female with history significant for Paranoid Schizophrenia and Mental retardation transferred from [place] psychiatric facility for evaluation of tachycardia and tachypnea/dyspnea. Unable to obtain any history from patient. Her guardian who was at the bedside was able to provide the history. The symptoms started about a week ago with gradual onset of generalized weakness, dysphagia and diffculty in speaking. Patient was admitted initially at [facility] and subsequently transferred to [place]. Patient developed tachycardia and shortness of breath which prompted the transfer to [facility]. No prior h/o similar presentation. Patient was not taking any Kaser preparation. On further evaluation she was found to have right LL PNA, sepsis, FLORIAN, Hypernatremia and Hypokalemia. Past History Past Medical History: other (schizophrenia) Past Surgical History: Other (unknown due to mental status) Social history: other (unknown due to mental status) Family history: other (unknown due to mental status) Medications and Allergies Allergies Allergy/AdvReac Type Severity Reaction Status Date / Time No Known Allergies Allergy Verified 06/06/16 21:14 Home Medications Medication Instructions Recorded Confirmed Last Taken Type Unobtainable 06/07/16 06/07/16 Unknown History Active Meds: Active Medications Acetaminophen (Tylenol) 650 mg PO Q4H PRN PRN Reason: Pain MILD(1-3)/Fever >100.5/TESFAYE Acetaminophen (Tylenol) 650 mg LA Q4H PRN PRN Reason: Pain, Mild (1-3) Last Admin: 06/07/16 16:04 Dose: 650 mg Bisacodyl (Dulcolax) 10 mg LA QDAY PRN PRN Reason: Constipation unrelieved by MOM Enoxaparin Sodium (Lovenox) 40 mg SUB-Q QDAY RACHEL Last Admin: 06/09/16 11:21 Dose: 40 mg Haloperidol Lactate (Haldol) 2 mg IM Q6H PRN PRN Reason: Agitation Last Admin: 06/08/16 01:44 Dose: 2 mg Levofloxacin/Dextrose (Levaquin 750mg/150ml) 150 mls @ 100 mls/hr IV Q24HR RACHEL PRN Reason: Protocol Last Admin: 06/09/16 11:21 Dose: 100 mls/hr Dextrose (D5w) 1,000 mls @ 125 mls/hr IV DIRECT RACHEL Last Admin: 06/09/16 11:39 Dose: 125 mls/hr Magnesium Hydroxide (Milk Of Magnesia) 30 ml PO Q4H PRN PRN Reason: Constipation Ondansetron HCl (Zofran) 4 mg IV Q8H PRN PRN Reason: N/V unrelieved by Reglan Review of Systems ROS unobtainable: due to mental status Exam - Vital Signs Vital signs: Vital Signs Pulse Ox 97 06/06/16 20:26 - General Appearance General appearance: well-developed, well-nourished, other (Guardian was present in the room, non-verbal) EENT: PERRL, mucous membranes dry, hearing intact Neck: Present: neck supple, trachea midline Respiratory: Clear to Ascultation Heart: regular, S1S2, no murmurs Gastrointestinal: Present: normoactive bowel sounds. Absent: tenderness, distended Integumentary: other (blisters over the right hand) Neurologic: other (barely able to move the extremities, increased muscle tone noted) Musculoskeletal: Present: other (no edema) Psychiatric: cooperative Results - Lab Results 06/08/16 06:39 06/09/16 11:50 Most recent lab results Calcium 8.7 mg/dL (8.4-10.2) 06/09/16 07:02 Urine Sodium 26 mEq/L 06/08/16 10:13 Assessment and Plan 1. Hypernatremia: Likely secondary to dehydration. Urine osmolality results noted. Continue D5W and monitor Sodium level. Kaser level is pending. 2. FLORIAN: Likely secondary to volume depletion. Renal function is normal now. 3. Hypokalemia: Monitor and replete K as needed. 4. Pneumonia. 5. Sepsis: Improving. 6. ?Catatonia. 7. Dysphagia.
[2016-06-09 13:34] LABS: Magnesium 2.4 mg/dL (1.7-2.3); Phosphorous 2.8 mg/dL (2.5-4.5)
--- NOTE | 2016-06-09 14:38 | Gastroenterology Consultation ---
History of Present Illness - Reason for Consult Consult date: 06/09/16 dysphagia/malnutrition Requesting physician: PAUL MANRIQUE - History of Present Illness The patient is a 46-year-old female transferred from [facility] for shortness of breath and catatonic schizophrenia with dehydration. No history can be obtained from the patient due to her catatonic state. The patient is awake but not cooperative. She is apparently not eating. Past History Past Medical History: other (schizophrenia) Past Surgical History: Other (unknown due to mental status) Social history: other (unknown due to mental status) Family history: other (unknown due to mental status) Medications and Allergies Allergies Allergy/AdvReac Type Severity Reaction Status Date / Time No Known Allergies Allergy Verified 06/06/16 21:14 Home Medications Medication Instructions Recorded Confirmed Last Taken Type Unobtainable 06/07/16 06/07/16 Unknown History Active Meds: Active Medications Acetaminophen (Tylenol) 650 mg PO Q4H PRN PRN Reason: Pain MILD(1-3)/Fever >100.5/TESFAYE Acetaminophen (Tylenol) 650 mg CO Q4H PRN PRN Reason: Pain, Mild (1-3) Last Admin: 06/07/16 16:04 Dose: 650 mg Bisacodyl (Dulcolax) 10 mg CO QDAY PRN PRN Reason: Constipation unrelieved by MOM Enoxaparin Sodium (Lovenox) 40 mg SUB-Q QDAY RACHEL Last Admin: 06/09/16 11:21 Dose: 40 mg Haloperidol Lactate (Haldol) 2 mg IM Q6H PRN PRN Reason: Agitation Last Admin: 06/08/16 01:44 Dose: 2 mg Levofloxacin/Dextrose (Levaquin 750mg/150ml) 150 mls @ 100 mls/hr IV Q24HR RACHEL PRN Reason: Protocol Last Admin: 06/09/16 11:21 Dose: 100 mls/hr Dextrose (D5w) 1,000 mls @ 125 mls/hr IV DIRECT RACHEL Last Admin: 06/09/16 11:39 Dose: 125 mls/hr Magnesium Hydroxide (Milk Of Magnesia) 30 ml PO Q4H PRN PRN Reason: Constipation Ondansetron HCl (Zofran) 4 mg IV Q8H PRN PRN Reason: N/V unrelieved by Reglan Review of Systems - Review of Systems ROS unobtainable: due to mental status Exam - Constitutional Vital Signs: Temp Pulse Resp BP Pulse Ox 98.5 F 78 16 139/88 99 06/09/16 07:00 06/09/16 07:00 06/09/16 07:00 06/09/16 07:00 06/09/16 10:00 General appearance: no acute distress, well-nourished - EENT Eyes: PERRL ENT: hearing intact, clear oral mucosa - Neck Neck: supple, normal ROM, no masses or JVD - Respiratory Respiratory effort: normal Respiratory: bilateral: CTA - Breasts Breasts: deferred - Cardiovascular Rhythm: regular Heart Sounds: Present: S1 & S2. Absent: gallop, rub Extremities: pulses intact, No edema, normal color, Full ROM - Gastrointestinal General gastrointestinal: Present: soft, non-tender, non-distended, normal bowel sounds. Absent: hepatomegaly, splenomegaly, mass Rectal Exam: deferred - Genitourinary Female Genitourinary: deferred - Integumentary Integumentary: Present: clear, warm, dry - Neurologic Neurological: other (awake, follows no commands.) - Labs CBC & Chem 7: 06/08/16 06:39 06/09/16 11:50 Lab Results: Laboratory Results - last 24 hr 06/08/16 06/08/16 06/09/16 15:17 20:46 07:02 Sodium 160 H 158 H 160 H Potassium 3.6 Chloride 118.8 H Carbon Dioxide 31 H Anion Gap 14 BUN 24 H Creatinine 0.9 Estimated GFR > 60 BUN/Creatinine Ratio 26.66 Glucose 115 H Calcium 8.7 Phosphorus Magnesium Total Bilirubin AST ALT Alkaline Phosphatase Total Creatine Kinase Total Protein Albumin Albumin/Globulin Ratio [place] 06/09/16 06/09/16 06/09/16 11:00 11:00 11:50 Sodium 158 H Potassium 3.7 Chloride 115.1 H Carbon Dioxide 30 Anion Gap 17 BUN 22 H Creatinine 1.0 Estimated GFR 59 BUN/Creatinine Ratio 22.00 Glucose 113 H Calcium 8.8 Phosphorus 2.8 Magnesium 2.4 H Total Bilirubin 0.8 AST 79 H ALT 69 H Alkaline Phosphatase 43 Total Creatine Kinase 1262 H Total Protein 6.4 Albumin 3.2 L Albumin/Globulin Ratio 1.0 [place] 06/09/16 13:30 Sodium Potassium Chloride Carbon Dioxide Anion Gap BUN Creatinine Estimated GFR BUN/Creatinine Ratio Glucose Calcium Phosphorus Magnesium Total Bilirubin AST ALT Alkaline Phosphatase Total Creatine Kinase Total Protein Albumin Albumin/Globulin Ratio [place] 0.1 Assessment and Plan #1 Catatonic schizophrenia #2 malnutrition due to poor intake secondary to problem #1-recommended for feedings by Abdias at the present time. No actual history can be obtained as to her swallowing function and I'm not sure she is a candidate for PEG. Poor swallowing function is likely due to her altered mental status and therefore lack of cooperation. Endoscopy is not necessarily indicated at the present without odynophagia or history of dysphagia. Thank you very much, Dr. Manrique, I will follow her with interest
--- NOTE | 2016-06-09 18:30 | Consultation ---
History of Present Illness - Reason for Consult Consult date: 06/09/16 ams - History of Present Illness patient seen and assessed a note is dictated this does appear to be catatonia I will follow up thanks Past History Past Medical History: other (schizophrenia) Past Surgical History: Other (unknown due to mental status) Social history: other (unknown due to mental status) Family history: other (unknown due to mental status) Medications and Allergies Allergies Allergy/AdvReac Type Severity Reaction Status Date / Time No Known Allergies Allergy Verified 06/06/16 21:14 Home Medications Medication Instructions Recorded Confirmed Last Taken Type Unobtainable 06/07/16 06/07/16 Unknown History Active Meds: Active Medications Acetaminophen (Tylenol) 650 mg PO Q4H PRN PRN Reason: Pain MILD(1-3)/Fever >100.5/TESFAYE Acetaminophen (Tylenol) 650 mg [place] Q4H PRN PRN Reason: Pain, Mild (1-3) Last Admin: 06/07/16 16:04 Dose: 650 mg Bisacodyl (Dulcolax) 10 mg [place] QDAY PRN PRN Reason: Constipation unrelieved by MOM Enoxaparin Sodium (Lovenox) 40 mg SUB-Q QDAY [facility] Last Admin: 06/09/16 11:21 Dose: 40 mg Haloperidol Lactate (Haldol) 2 mg IM Q6H PRN PRN Reason: Agitation Last Admin: 06/08/16 01:44 Dose: 2 mg Levofloxacin/Dextrose (Levaquin 750mg/150ml) 150 mls @ 100 mls/hr IV Q24HR RACHEL PRN Reason: Protocol Last Admin: 06/09/16 11:21 Dose: 100 mls/hr Dextrose (D5w) 1,000 mls @ 125 mls/hr IV DIRECT RACHEL Last Admin: 06/09/16 11:39 Dose: 125 mls/hr Magnesium Hydroxide (Milk Of Magnesia) 30 ml PO Q4H PRN PRN Reason: Constipation Ondansetron HCl (Zofran) 4 mg IV Q8H PRN PRN Reason: N/V unrelieved by Reglan Exam - Constitutional Vitals: Temp Pulse Resp BP Pulse Ox 98.8 F 74 20 118/75 99 06/09/16 15:00 06/09/16 15:00 06/09/16 15:00 06/09/16 15:00 06/09/16 10:00 Results - Labs CBC & Chem 7: 06/08/16 06:39 06/09/16 11:50 Labs: Abnormal lab results 06/08/16 06/09/16 06/09/16 Range/Units 20:46 07:02 11:00 Sodium 158 H 160 H (137-145) mmol/L Chloride 118.8 H (98-107) mmol/L Carbon Dioxide 31 H (22-30) mmol/L BUN 24 H (7-17) mg/dL Glucose 115 H (65-100) mg/dL Magnesium 2.4 H (1.7-2.3) mg/dL AST (5-40) units/L ALT (7-56) units/L Total Creatine Kinase (30-135) units/L Albumin (3.9-5) g/dL 06/09/16 06/09/16 Range/Units 11:00 11:50 Sodium 158 H (137-145) mmol/L Chloride 115.1 H (98-107) mmol/L Carbon Dioxide (22-30) mmol/L BUN 22 H (7-17) mg/dL Glucose 113 H (65-100) mg/dL Magnesium (1.7-2.3) mg/dL AST 79 H (5-40) units/L ALT 69 H (7-56) units/L Total Creatine Kinase 1262 H (30-135) units/L Albumin 3.2 L (3.9-5) g/dL
--- NOTE | 2016-06-09 19:46 | Consultation ---
HISTORY OF PRESENT ILLNESS: This is a 46-year-old female who presents with a prior history of being admitted to Emergency Room. She had been just admitted because of catatonia and [place] worker. With the patient, there was not much of a history obtainable. Psychiatric history of schizophrenia. She was admitted to the hospital and with electrolyte imbalance, hematocrit was 45. Sodium 150, potassium 3, creatinine 1.3. The patient had a CT scan of the head, which did not show any bleed. There was a right lower lobe pneumonia. PHYSICAL EXAMINATION: On my examination, she has very prominent catatonia. Low grade fever. Supple neck. Ocular movements full. Motor tone is symmetrical. 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 The patient does follow simple commands only. IMPRESSION: Catatonia with a negative CT scan. PLAN: Presumably, this patient has a prior history of schizophrenia and plan to further follow the patient with you. We will treat the patient with IV Vimpat. I do not see anything on examination. We should maybe believe that this is a seizure activity, but she should require seizure coverage because of the clinical setting. We will get MRI scan and EEG when available. I will follow the patient with you. JOB# [id number] TATIANA/PALLAVI
[2016-06-09] MEDS: VIMPAT 100 MG in NACL 0.9% 100 ML IV SCH (21:01)
[2016-06-10] MEDS: D5W 1,000 ML IV SCH (03:44)
[2016-06-10 08:26] LABS: Hematocrit 42.9 % (30.3-42.9); Mean Corpuscular HGB Conc 33 % (30-34); Mean Corpuscular Hemoglobin 30 pg (28-32); Mean Corpuscular Volume 90 fl (79-97); Platelet Count 171 K/mm3 (140-440); Red Blood Count 4.75 M/mm3 (3.65-5.03); Red Cell Distribution Width 13.7 % (13.2-15.2)
[2016-06-10 08:57] LABS: BUN/Creatinine Ratio 32.85; Blood Urea Nitrogen 23 mg/dL (7-17); Calcium 9.1 mg/dL (8.4-10.2); Carbon Dioxide 31 mmol/L (22-30); Glucose 135 mg/dL (65-100)
[2016-06-10 08:58] LABS: Potassium 3.3 mmol/L (3.6-5.0); Sodium 157 mmol/L (137-145)
[2016-06-10 09:21] LABS: Anion Gap 16 mmol/L
[2016-06-10] MEDS: VIMPAT 100 MG in NACL 0.9% 100 ML IV SCH ×2 (09:26→21:42)
--- NOTE | 2016-06-10 10:32 | Progress Note ---
Assessment and Plan 1. Hypernatremia: Likely secondary to dehydration. Continue D5W and monitor Sodium level. [place] level should be 0 if patient is not taking any [place]. Add water flushes. 2. FLORIAN: Likely secondary to volume depletion. Renal function is normal now. 3. Hypokalemia: Monitor and replete K as needed. 4. Mild Rhabdomyolysis: Monitor CK level. 5. Pneumonia. 6. Sepsis: Improving. 7. Catatonia: Neuro following. 8. Dysphagia: Insert feeding tube. Subjective Date of service: 06/10/16 Objective - Vital Signs Vital signs: Vital Signs - 12hr 06/09/16 23:00 Temperature 98.9 F Pulse Rate [ 75 Right Radial] Respiratory 18 Rate Blood Pressure 131/87 [Right Arm] O2 Sat by Pulse 100 Oximetry - General Appearance General appearance: well-developed, other (RN was present in the room, on venti mask) EENT: PERRL, mucous membranes dry, hearing intact Neck: no carotid bruit, supple Respiratory: Present: Clear to Ascultation Cardiology: regular, S1S2, no murmurs Gastrointestinal: normoactive bowel sounds, no tenderness, no distended Integumentary: other (right hand blisters) Neurologic: other (able to move extremities, tremors noted) Musculoskeletal: other (right hand edema noted) Psychiatric: cooperative - Lab 06/10/16 07:52 06/10/16 07:52 Most recent lab results Calcium 9.1 mg/dL (8.4-10.2) 06/10/16 07:52 Phosphorus 2.8 mg/dL (2.5-4.5) 06/09/16 11:00 Magnesium 2.4 mg/dL (1.7-2.3) H 06/09/16 11:00 Urine Sodium 26 mEq/L 06/08/16 10:13
[2016-06-10] MEDS: LOVENOX SUB-Q SCH (11:17)
[2016-06-10] MEDS: LEVAQUIN 750MG/150ML 150 ML IV SCH (11:17)
--- NOTE | 2016-06-10 11:28 | Gastroenterology Progress Note ---
Assessment and Plan #1 Catatonic schizophrenia #2 malnutrition due to poor intake secondary to problem #1-recommended for feedings by Abdias at the present time. Per nurse, Dobhoff to be inserted soon. Not certain of her prognosis short or shelter. Needs psych input at some point. Subjective Date of service: 06/10/16 Principal diagnosis: Inability to swallow Interval history: No speech. Lying in bed on a non rebreather mask Objective - Constitutional Vitals: Temp Pulse Resp BP Pulse Ox 98.9 F 75 18 131/87 100 06/09/16 23:00 06/09/16 23:00 06/09/16 23:00 06/09/16 23:00 06/09/16 23:00 General appearance: no acute distress - Neck Neck: supple - Respiratory Respiratory effort: normal Respiratory: bilateral: CTA - Cardiovascular Rhythm: regular - Gastrointestinal General gastrointestinal: Present: soft, non-tender, non-distended, normal bowel sounds - Neurologic Neurological: other (catatonic, eyes open, not responsive) - Labs CBC & Chem 7: 06/10/16 07:52 06/10/16 07:52 Labs: Laboratory Results - last 24 hr 06/09/16 06/09/16 06/09/16 11:00 11:00 11:50 WBC RBC Hgb Hct MCV MCH MCHC RDW Plt Count Sodium 158 H Potassium 3.7 Chloride 115.1 H Carbon Dioxide 30 Anion Gap 17 BUN 22 H Creatinine 1.0 Estimated GFR 59 BUN/Creatinine Ratio 22.00 Glucose 113 H Calcium 8.8 Phosphorus 2.8 Magnesium 2.4 H Total Bilirubin 0.8 AST 79 H ALT 69 H Alkaline Phosphatase 43 Total Creatine Kinase 1262 H Total Protein 6.4 Albumin 3.2 L Albumin/Globulin Ratio 1.0 [place] 06/09/16 06/09/16 06/10/16 13:30 20:23 07:52 WBC 9.0 RBC 4.75 Hgb 14.0 Hct 42.9 MCV 90 MCH 30 MCHC 33 RDW 13.7 Plt Count 171 Sodium 155 H Potassium Chloride Carbon Dioxide Anion Gap BUN Creatinine Estimated GFR BUN/Creatinine Ratio Glucose Calcium Phosphorus Magnesium Total Bilirubin AST ALT Alkaline Phosphatase Total Creatine Kinase Total Protein Albumin Albumin/Globulin Ratio [place] 0.1 06/10/16 07:52 WBC RBC Hgb Hct MCV MCH MCHC RDW Plt Count Sodium 157 H Potassium 3.3 L Chloride 113.0 H Carbon Dioxide 31 H Anion Gap 16 BUN 23 H Creatinine 0.7 Estimated GFR > 60 BUN/Creatinine Ratio 32.85 Glucose 135 H Calcium 9.1 Phosphorus Magnesium Total Bilirubin AST ALT Alkaline Phosphatase Total Creatine Kinase Total Protein Albumin Albumin/Globulin Ratio [place]
--- NOTE | 2016-06-10 13:21 | Progress Note ---
Assessment and Plan Assessment and plan: 46-year-old female presents from [facility] for tachycardia and tachypnea/dyspnea. The patient and the [place] worker and that has accompanied the patient is unable to give any history. All the history was obtained from the [place] and ER record. 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 Patient developed tachycardia and shortness of breath which prompted the transferred to our facility for further evaluation. Patient does not respond to any questions. 1. Sepsis. Leukocytosis resolved, Continue to follow cultures, continue antibiotics at this point. Continue Levaquin 2. Healthcare associated right lower lobe pneumonia. Rule out gram-negative pneumonia. As noted above. Aspiration precautions. Speech evaluation noted. GI recommended Dobbhoff this has been ordered. 3. Acute kidney injury. Etiology likely secondary to vasomotor nephropathy +/- acute kidney injury from ATN/sepsis. Resolved. Nephrology input appreciated. IV fluid infiltrated this morning. . 4. Hypernatremia-we'll check urine lites. Nephrology consultation Change IV fluids to D5W. Monitor sodium every 6 hours. 5. Schizophrenia. Awaiting psych input. I called psych again today. I have escalated this to administration as I have not seen any psychiatrist evaluation. level was checked mildly elevated unsure if patient was on lithium at some point. The family patient was initially on olanzapine, citalopram, trazodone. Was not taking the medications and subsequently was changed to IV medication which the family did not know the name. Became very lethargic and medication with drooling from the side of her mouth. They proceeded to take her to the hospital as she was not tolerating by mouth intake at the time. They are she lost a lot happen. We will at this time request records. 6. Hypokalemia. Replete potassium. 7.-Dysphagia-obtain GI evaluation. Speech evaluation noted 8. Mild rhabdomyolysis-resolving 9. DVT prophylaxis. Lovenox daily Family updated of the progress. Neurologic input appreciated History Interval history: Follow sepsis Patient seen and examined this morning in no acute distress, she remains Non verbal, although opens eyes to name. Follows simple commands.?catatonic state from her psych hx. No adverse event noted by nursing. No other fever noted. Hospitalist Physical - Physical exam Narrative exam: VITAL SIGNS: Reviewed. GENERAL: The patient appeared ill otherwise in no acute distress. Vital signs as documented. HEAD: No signs of head trauma. EYES: Pupils are equal. Extraocular motions intact. EARS: Hearing grossly intact. MOUTH: Oropharynx is normal. NECK: No adenopathy, no JVD. CHEST: Chest with diminished breath sounds bilaterally. No wheezes, rales, or rhonchi. CARDIAC: Regular rate and rhythm. S1 and S2, without murmurs, gallops, or rubs. VASCULAR: Trace Edema. More pronounced on the right upper extremity Peripheral pulses normal and equal in all extremities. ABDOMEN: Soft, without detectable tenderness. No sign of distention. No rebound or guarding, and no masses palpated. Bowel Sounds normal. MUSCULOSKELETAL: Good range of motion of all major joints. Extremities without clubbing, cyanosis or trace edema bilateral upper extremities. NEUROLOGIC EXAM: awake but lathergic, follows simple commands no focal sensory or strength deficits. moves head in direction of speaker PSYCHIATRIC: Mood normal. SKIN: mild bulea in the right wrist area- 3 spots. no erythema - Constitutional Vitals: Temp Pulse Resp BP Pulse Ox 98.9 F 75 18 131/87 97 06/09/16 23:00 06/09/16 23:00 06/09/16 23:00 06/09/16 23:00 06/10/16 10:00 General appearance: Present: no acute distress, well-nourished Results - Labs CBC & Chem 7: 06/10/16 07:52 06/10/16 07:52 Labs: Laboratory Last Values WBC 9.0 K/mm3 (4.5-11.0) 06/10/16 07:52 RBC 4.75 M/mm3 (3.65-5.03) 06/10/16 07:52 Hgb 14.0 gm/dl (10.1-14.3) 06/10/16 07:52 Hct 42.9 % (30.3-42.9) 06/10/16 07:52 MCV 90 fl (79-97) 06/10/16 07:52 MCH 30 pg (28-32) 06/10/16 07:52 MCHC 33 % (30-34) 06/10/16 07:52 RDW 13.7 % (13.2-15.2) 06/10/16 07:52 Plt Count 171 K/mm3 (140-440) 06/10/16 07:52 Lymph % (Auto) 6.0 % (13.4-35.0) L 06/08/16 06:39 [place] % (Auto) 5.5 % (0.0-7.3) 06/08/16 06:39 Eos % (Auto) 0.2 % (0.0-4.3) 06/08/16 06:39 Baso % (Auto) 0.1 % (0.0-1.8) 06/08/16 06:39 Lymph # 0.6 K/mm3 (1.2-5.4) L 06/08/16 06:39 Hill # 0.6 K/mm3 (0.0-0.8) 06/08/16 06:39 Eos # 0.0 K/mm3 (0.0-0.4) 06/08/16 06:39 Baso # 0.0 K/mm3 (0.0-0.1) 06/08/16 06:39 Add Manual Diff Complete 06/06/16 21:56 Total Counted 100 06/06/16 21:56 Seg Neutrophils % 88.2 % (40.0-70.0) H 06/08/16 06:39 Seg Neuts % (Manual) 95.0 % (40.0-70.0) H 06/06/16 21:56 Band Neutrophils % 1.0 % 06/06/16 21:56 Lymphocytes % (Manual) 3.0 % (13.4-35.0) L 06/06/16 21:56 Reactive Lymphs % (Man) 0 % 06/06/16 21:56 Monocytes % (Manual) 1.0 % (0.0-7.3) 06/06/16 21:56 Eosinophils % (Manual) 0 % (0.0-4.3) 06/06/16 21:56 Basophils % (Manual) 0 % (0.0-1.8) 06/06/16 21:56 Metamyelocytes % 0 % 06/06/16 21:56 Myelocytes % 0 % 06/06/16 21:56 Promyelocytes % 0 % 06/06/16 21:56 Blast Cells % 0 % 06/06/16 21:56 Nucleated RBC % Not Reportable 06/06/16 21:56 Seg Neutrophils # 9.2 K/mm3 (1.8-7.7) H 06/08/16 06:39 Seg Neutrophils # Man 16.7 K/mm3 (1.8-7.7) H 06/06/16 21:56 Band Neutrophils # 0.2 K/mm3 06/06/16 21:56 Lymphocytes # (Manual) 0.5 K/mm3 (1.2-5.4) L 06/06/16 21:56 Abs React Lymphs (Man) 0.0 K/mm3 06/06/16 21:56 Monocytes # (Manual) 0.2 K/mm3 (0.0-0.8) 06/06/16 21:56 Eosinophils # (Manual) 0.0 K/mm3 (0.0-0.4) 06/06/16 21:56 Basophils # (Manual) 0.0 K/mm3 (0.0-0.1) 06/06/16 21:56 Metamyelocytes # 0.0 K/mm3 06/06/16 21:56 Myelocytes # 0.0 K/mm3 06/06/16 21:56 Promyelocytes # 0.0 K/mm3 06/06/16 21:56 Blast Cells # 0.0 K/mm3 06/06/16 21:56 WBC Morphology Not Reportable 06/06/16 21:56 Hypersegmented Neuts Not Reportable 06/06/16 21:56 Hyposegmented Neuts Not Reportable 06/06/16 21:56 Hypogranular Neuts Not Reportable 06/06/16 21:56 Smudge Cells Not Reportable 06/06/16 21:56 Toxic Granulation Not Reportable 06/06/16 21:56 Toxic Vacuolation Not Reportable 06/06/16 21:56 Dohle Bodies Not Reportable 06/06/16 21:56 Pelger-Huet Anomaly Not Reportable 06/06/16 21:56 Guerda Rods Not Reportable 06/06/16 21:56 Platelet Estimate Consistent w auto 06/06/16 21:56 Clumped Platelets Not Reportable 06/06/16 21:56 Plt Clumps, EDTA Not Reportable 06/06/16 21:56 Large Platelets Not Reportable 06/06/16 21:56 Giant Platelets Not Reportable 06/06/16 21:56 Platelet Satelliting Not Reportable 06/06/16 21:56 Plt Morphology Comment Not Reportable 06/06/16 21:56 RBC Morphology Normal 06/06/16 21:56 Dimorphic RBCs Not Reportable 06/06/16 21:56 Polychromasia Not Reportable 06/06/16 21:56 Hypochromasia Not Reportable 06/06/16 21:56 Poikilocytosis Not Reportable 06/06/16 21:56 Anisocytosis Not Reportable 06/06/16 21:56 Microcytosis Not Reportable 06/06/16 21:56 Macrocytosis Not Reportable 06/06/16 21:56 Spherocytes Not Reportable 06/06/16 21:56 Pappenheimer Bodies Not Reportable 06/06/16 21:56 Sickle Cells Not Reportable 06/06/16 21:56 Target Cells Not Reportable 06/06/16 21:56 Tear Drop Cells Not Reportable 06/06/16 21:56 Ovalocytes Not Reportable 06/06/16 21:56 Helmet Cells Not Reportable 06/06/16 21:56 Tamayo-Comfrey Bodies Not Reportable 06/06/16 21:56 Hunter Rings Not Reportable 06/06/16 21:56 Orem Cells Not Reportable 06/06/16 21:56 Bite Cells Not Reportable 06/06/16 21:56 Crenated Cell Not Reportable 06/06/16 21:56 Elliptocytes Not Reportable 06/06/16 21:56 Acanthocytes (Spur) Not Reportable 06/06/16 21:56 Rouleaux Not Reportable 06/06/16 21:56 Hemoglobin C Crystals Not Reportable 06/06/16 21:56 Schistocytes Not Reportable 06/06/16 21:56 Malaria parasites Not Reportable 06/06/16 21:56 Chago Bodies Not Reportable 06/06/16 21:56 Hem Pathologist Commnt No 06/06/16 21:56 PT 15.9 Sec. (12.2-14.9) H 06/06/16 21:56 INR 1.28 (0.87-1.13) H 06/06/16 21:56 VBG pH 7.437 (7.320-7.420) H 06/06/16 21:56 Sodium 157 mmol/L (137-145) H 06/10/16 07:52 Potassium 3.3 mmol/L (3.6-5.0) L 06/10/16 07:52 Chloride 113.0 mmol/L (98-107) H 06/10/16 07:52 Carbon Dioxide 31 mmol/L (22-30) H 06/10/16 07:52 Anion Gap 16 mmol/L 06/10/16 07:52 BUN 23 mg/dL (7-17) H 06/10/16 07:52 Creatinine 0.7 mg/dL (0.7-1.2) 06/10/16 07:52 Estimated GFR > 60 ml/min 06/10/16 07:52 BUN/Creatinine Ratio 32.85 % 06/10/16 07:52 Glucose 135 mg/dL (65-100) H 06/10/16 07:52 Osmolality 360 Mosm/kg 06/08/16 09:36 Lactic Acid 1.5 mmol/L (0.7-2.0) 06/07/16 06:49 Calcium 9.1 mg/dL (8.4-10.2) 06/10/16 07:52 Phosphorus 2.8 mg/dL (2.5-4.5) 06/09/16 11:00 Magnesium 2.4 mg/dL (1.7-2.3) H 06/09/16 11:00 Total Bilirubin 0.8 mg/dL (0.1-1.2) 06/09/16 11:50 AST 79 units/L (5-40) H 06/09/16 11:50 ALT 69 units/L (7-56) H 06/09/16 11:50 Alkaline Phosphatase 43 units/L (35-129) 06/09/16 11:50 Total Creatine Kinase 429 units/L (30-135) H 06/10/16 12:17 Total Protein 6.4 g/dL (6.3-8.2) 06/09/16 11:50 Albumin 3.2 g/dL (3.9-5) L 06/09/16 11:50 Albumin/Globulin Ratio 1.0 % 06/09/16 11:50 Urine Color Dark yellow (Yellow) 06/06/16 21:23 Urine Turbidity Clear (Clear) 06/06/16 21:23 Urine pH 6.0 (5.0-7.0) 06/06/16 21:23 Ur Specific [place] 1.025 (1.003-1.030) 06/06/16 21:23 Urine Protein 30 mg/dl mg/dL (Negative) 06/06/16 21:23 Urine Glucose (UA) Negative mg/dL (Negative) 06/06/16 21:23 Urine Ketones 15 mg/dL (Negative) 06/06/16 21:23 Urine Blood Large (Negative) 06/06/16 21:23 Urine Nitrite Negative (Negative) 06/06/16 21:23 Ur Reducing Substances Not Reportable 06/06/16 21:23 Urine Bilirubin Negative (Negative) 06/06/16 21:23 Urine Ictotest Not Reportable 06/06/16 21: Urine Urobilinogen < 2.0 mg/dL (<2.0) 06/06/16 21:23 Ur Leukocyte Esterase Negative (Negative) 06/06/16 21:23 Urine WBC (Auto) 9.0 /HPF (0.0-6.0) H 06/06/16 21:23 Urine RBC (Auto) 4.0 /HPF (0.0-6.0) 06/06/16 21:23 U Epithel Cells (Auto) 2.0 /HPF (0-13.0) 06/06/16 21:23 Urine Mucus 3+ /HPF 06/06/16 21:23 Urine Osmolality 795 Mosm/kg 06/08/16 10:13 Urine Sodium 26 mEq/L 06/08/16 10:13 Urine HCG, Qual Negative (Negative) 06/06/16 21:23 Urine Opiates Screen Presumptive negative 06/06/16 21:23 Urine Methadone Screen Presumptive negative 06/06/16 21:23 Ur Barbiturates Screen Presumptive negative 06/06/16 21:23 Ur Phencyclidine Scrn Presumptive negative 06/06/16 21:23 Ur Amphetamines Screen Presumptive negative 06/06/16 21:23 U Benzodiazepines Scrn Presumptive negative 06/06/16 21:23 [place] 0.1 mmol/L (0.0-1.2) 06/09/16 13:30 Urine Cocaine Screen Presumptive negative 06/06/16 21:23 U Marijuana (THC) Screen Presumptive negative 06/06/16 21:23 Drugs of Abuse Note Disclamer 06/06/16 21:23 Plasma/Serum Alcohol < 0.01 gm% (0-0.07) 06/06/16 21:56
[2016-06-10] MEDS: KCL 10MEQ/100ML 100 ML IV SCH ×4 (16:18→23:45)
--- NOTE | 2016-06-10 20:19 | XRay Report ---
FINAL REPORT PROCEDURE: XR ABDOMEN 1V AP TECHNIQUE: Abdominal radiograph, single supine AP view. HISTORY: Dobhoff Placement COMPARISON: No prior studies are available for comparison. FINDINGS: Bowel gas pattern:Nonobstructive. Masses or calcifications:None. Bony structures:No significant abnormality. Other:NG tube is in the antrum of the stomach.. IMPRESSION: No acute abnormality. The NG tube is in the antrum of the stomach.
[2016-06-11 06:00] LABS: Alanine Aminotransferase 51 units/L (7-56); Albumin 3.3 g/dL (3.9-5); Albumin/Globulin Ratio 0.9 %; Alkaline Phosphatase 48 units/L (35-129); Anion Gap 14 mmol/L; Bilirubin,Total 0.9 mg/dL (0.1-1.2); Blood Urea Nitrogen 22 mg/dL (7-17); Carbon Dioxide 31 mmol/L (22-30); Chloride 114.3 mmol/L (98-107); Glucose 125 mg/dL (65-100); Phosphorous 2.4 mg/dL (2.5-4.5); Potassium 3.7 mmol/L (3.6-5.0); Sodium 156 mmol/L (137-145); Total Protein 6.8 g/dL (6.3-8.2)
--- NOTE | 2016-06-11 10:05 | Progress Note ---
Assessment and Plan 1. Hypernatremia: In the context of concentrated urine, poo PO intake and high bicarbonate the elevated sodium level is secondary to dehydration. Resume D5W and start water flushes. Monitor Sodium level. 2. FLORIAN: Likely secondary to volume depletion. Renal function is normal now. 3. Hypokalemia: Replete K and Phos. 4. Mild Rhabdomyolysis: CK level is improving. 5. Pneumonia. 6. Sepsis. 7. Catatonia: Neuro following. 8. Dysphagia: S/p feeding tube. Subjective Date of service: 06/11/16 Principal diagnosis: Inability to swallow Objective - Vital Signs Vital signs: Vital Signs - 12hr 06/11/16 06/11/16 06/11/16 00:46 07:43 08:10 Temperature 97.9 F 101.3 F H Pulse Rate [ 91 H Apical] Pulse Rate [ 108 H Right Radial] Respiratory 18 16 Rate Blood Pressure 127/71 127/80 [Right Arm] O2 Sat by Pulse 96 96 98 Oximetry - General Appearance General appearance: well-developed, other (RN was present in the room, on ventimask O2) EENT: PERRL, mucous membranes dry Neck: no carotid bruit, supple Respiratory: Present: Clear to Ascultation Cardiology: regular, S1S2, no murmurs Gastrointestinal: normoactive bowel sounds, no tenderness, no distended Integumentary: other (right hand blisters) Neurologic: other (not following any command, non-verbal) Musculoskeletal: other (right hand edema noted) - Lab 06/10/16 07:52 06/11/16 04:52 Most recent lab results Calcium 9.0 mg/dL (8.4-10.2) 06/11/16 04:52 Phosphorus 2.4 mg/dL (2.5-4.5) L 06/11/16 04:52 Magnesium 2.4 mg/dL (1.7-2.3) H 06/09/16 11:00 Urine Sodium 26 mEq/L 06/08/16 10:13
[2016-06-11] MEDS: TYLENOL PO PRN (10:32)
[2016-06-11] MEDS: LOVENOX SUB-Q SCH (10:39)
[2016-06-11] MEDS: LEVAQUIN 750MG/150ML 150 ML IV SCH (11:29)
[2016-06-11] MEDS: D5W 1,000 ML IV SCH (11:32)
[2016-06-11] MEDS ORDERED: KPHOS 30 MMOL in NACL 0.9% 500 ML 500 ML IV ONE (12:00)
--- NOTE | 2016-06-11 13:59 | Progress Note ---
Assessment and Plan Assessment and plan: 46-year-old female presents from [facility] for tachycardia and tachypnea/dyspnea. The patient and the [place] [facility] worker and that has accompanied the patient is unable to give any history. All the history was obtained from the [place] [facility] and ER record. 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 Patient developed tachycardia and shortness of breath which prompted the transferred to our facility for further evaluation. Patient does not respond to any questions. The family states that patient was initially on olanzapine, citalopram, trazodone. Was not taking the medications and subsequently was changed to IV medication which the family did not know the name. Became very lethargic and medication with drooling from the side of her mouth. They proceeded to take her to the hospital as she was not tolerating by mouth intake at the time. She was initially seen at [facility] and subsequently transferred to [facility] facility from where she was discharged and brought to the hospital due to tachycardia tachypnea or dyspnea. 1. Sepsis. Recurrent fever. Repeat cultures. No new leukocytosis. Discontinue Levaquin, start Flagyl as patient also had diarrhea. stool for C. difficile culture 2. Healthcare associated right lower lobe pneumonia. Rule out gram-negative pneumonia. As noted above. Aspiration precautions. Speech evaluation noted. GI recommended [place] this has been ordered, patient tolerated diet. We reviewed the right 3. Acute kidney injury. Etiology likely secondary to vasomotor nephropathy +/- acute kidney injury from ATN/sepsis. Resolved. Nephrology input appreciated. 4. Hypernatremia-could be psychogenic in origin. Nephrology consultation. Continue iv fluids D5W. Monitor sodium every 6 hours. 5. Schizophrenia. Awaiting psych input. I called psych again today. I have escalated this to administration as I have not seen any psychiatrist evaluation. level was checked mildly elevated unsure if patient was on lithium at some point. 6. Hypokalemia. Replete potassium. 7.-Dysphagia-obtain GI evaluation. Speech evaluation noted, started on tube feeding 8. Mild rhabdomyolysis-resolving 9. DVT prophylaxis. Lovenox daily Family updated of the progress. Neurologic input appreciated History Interval history: Follow sepsis Patient seen and examined this morning in no acute distress, she remains Non verbal, although opens eyes to name. Follows simple commands.?catatonic state from her psych hx. No adverse event noted by nursing. Diarrhea last night, and fever this morning Hospitalist Physical - Physical exam Narrative exam: VITAL SIGNS: Reviewed. GENERAL: The patient appeared ill otherwise in no acute distress. Vital signs as documented. HEAD: No signs of head trauma. EYES: Pupils are equal. Extraocular motions intact. EARS: Hearing grossly intact. MOUTH: Oropharynx is normal. NECK: No adenopathy, no JVD. CHEST: Chest with diminished breath sounds bilaterally. No wheezes, rales, or rhonchi. CARDIAC: Regular rate and rhythm. S1 and S2, without murmurs, gallops, or rubs. VASCULAR: Trace Edema. More pronounced on the right upper extremity Peripheral pulses normal and equal in all extremities. ABDOMEN: Soft, without detectable tenderness. No sign of distention. No rebound or guarding, and no masses palpated. Bowel Sounds normal. MUSCULOSKELETAL: Good range of motion of all major joints. Extremities without clubbing, cyanosis or trace edema bilateral upper extremities. NEUROLOGIC EXAM: awake but lathergic, follows simple commands no focal sensory or strength deficits. moves head in direction of speaker PSYCHIATRIC: Mood normal. SKIN: mild bulea in the right wrist area- 3 spots, resolving. no erythema - Constitutional Vitals: Temp Pulse Resp BP Pulse Ox 101.3 F H 91 H 16 127/80 97 06/11/16 08:10 06/11/16 08:10 06/11/16 08:10 06/11/16 08:10 06/11/16 12:12 General appearance: Present: no acute distress, well-nourished Results - Labs CBC & Chem 7: 06/10/16 07:52 06/11/16 04:52 Labs: Laboratory Last Values WBC 9.0 K/mm3 (4.5-11.0) 06/10/16 07:52 RBC 4.75 M/mm3 (3.65-5.03) 06/10/16 07:52 Hgb 14.0 gm/dl (10.1-14.3) 06/10/16 07:52 Hct 42.9 % (30.3-42.9) 06/10/16 07:52 MCV 90 fl (79-97) 06/10/16 07:52 MCH 30 pg (28-32) 06/10/16 07:52 MCHC 33 % (30-34) 06/10/16 07:52 RDW 13.7 % (13.2-15.2) 06/10/16 07:52 Plt Count 171 K/mm3 (140-440) 06/10/16 07:52 Lymph % (Auto) 6.0 % (13.4-35.0) L 06/08/16 06:39 [place] % (Auto) 5.5 % (0.0-7.3) 06/08/16 06:39 Eos % (Auto) 0.2 % (0.0-4.3) 06/08/16 06:39 Baso % (Auto) 0.1 % (0.0-1.8) 06/08/16 06:39 Lymph # 0.6 K/mm3 (1.2-5.4) L 06/08/16 06:39 [place] # 0.6 K/mm3 (0.0-0.8) 06/08/16 06:39 Eos # 0.0 K/mm3 (0.0-0.4) 06/08/16 06:39 Baso # 0.0 K/mm3 (0.0-0.1) 06/08/16 06:39 Add Manual Diff Complete 06/06/16 21:56 Total Counted 100 06/06/16 21:56 Seg Neutrophils % 88.2 % (40.0-70.0) H 06/08/16 06:39 Seg Neuts % (Manual) 95.0 % (40.0-70.0) H 06/06/16 21:56 Band Neutrophils % 1.0 % 06/06/16 21:56 Lymphocytes % (Manual) 3.0 % (13.4-35.0) L 06/06/16 21:56 Reactive Lymphs % (Man) 0 % 06/06/16 21:56 Monocytes % (Manual) 1.0 % (0.0-7.3) 06/06/16 21:56 Eosinophils % (Manual) 0 % (0.0-4.3) 06/06/16 21:56 Basophils % (Manual) 0 % (0.0-1.8) 06/06/16 21:56 Metamyelocytes % 0 % 06/06/16 21:56 Myelocytes % 0 % 06/06/16 21:56 Promyelocytes % 0 % 06/06/16 21:56 Blast Cells % 0 % 06/06/16 21:56 Nucleated RBC % Not Reportable 06/06/16 21:56 Seg Neutrophils # 9.2 K/mm3 (1.8-7.7) H 06/08/16 06:39 Seg Neutrophils # Man 16.7 K/mm3 (1.8-7.7) H 06/06/16 21:56 Band Neutrophils # 0.2 K/mm3 06/06/16 21:56 Lymphocytes # (Manual) 0.5 K/mm3 (1.2-5.4) L 06/06/16 21:56 Abs React Lymphs (Man) 0.0 K/mm3 06/06/16 21:56 Monocytes # (Manual) 0.2 K/mm3 (0.0-0.8) 06/06/16 21:56 Eosinophils # (Manual) 0.0 K/mm3 (0.0-0.4) 06/06/16 21:56 Basophils # (Manual) 0.0 K/mm3 (0.0-0.1) 06/06/16 21:56 Metamyelocytes # 0.0 K/mm3 06/06/16 21:56 Myelocytes # 0.0 K/mm3 06/06/16 21:56 Promyelocytes # 0.0 K/mm3 06/06/16 21:56 Blast Cells # 0.0 K/mm3 06/06/16 21:56 WBC Morphology Not Reportable 06/06/16 21:56 Hypersegmented Neuts Not Reportable 06/06/16 21:56 Hyposegmented Neuts Not Reportable 06/06/16 21:56 Hypogranular Neuts Not Reportable 06/06/16 21:56 Smudge Cells Not Reportable 06/06/16 21:56 Toxic Granulation Not Reportable 06/06/16 21:56 Toxic Vacuolation Not Reportable 06/06/16 21:56 Dohle Bodies Not Reportable 06/06/16 21:56 Pelger-Huet Anomaly Not Reportable 06/06/16 21:56 Guerda Rods Not Reportable 06/06/16 21:56 Platelet Estimate Consistent w auto 06/06/16 21:56 Clumped Platelets Not Reportable 06/06/16 21:56 Plt Clumps, EDTA Not Reportable 06/06/16 21:56 Large Platelets Not Reportable 06/06/16 21:56 Giant Platelets Not Reportable 06/06/16 21:56 Platelet Satelliting Not Reportable 06/06/16 21:56 Plt Morphology Comment Not Reportable 06/06/16 21:56 RBC Morphology Normal 06/06/16 21:56 Dimorphic RBCs Not Reportable 06/06/16 21:56 Polychromasia Not Reportable 06/06/16 21:56 Hypochromasia Not Reportable 06/06/16 21:56 Poikilocytosis Not Reportable 06/06/16 21:56 Anisocytosis Not Reportable 06/06/16 21:56 Microcytosis Not Reportable 06/06/16 21:56 Macrocytosis Not Reportable 06/06/16 21:56 Spherocytes Not Reportable 06/06/16 21:56 Pappenheimer Bodies Not Reportable 06/06/16 21:56 Sickle Cells Not Reportable 06/06/16 21:56 Target Cells Not Reportable 06/06/16 21:56 Tear Drop Cells Not Reportable 06/06/16 21:56 Ovalocytes Not Reportable 06/06/16 21:56 Helmet Cells Not Reportable 06/06/16 21:56 [place] Bodies Not Reportable 06/06/16 21:56 [place] Rings Not Reportable 06/06/16 21:56 [place] Cells Not Reportable 06/06/16 21:56 Bite Cells Not Reportable 06/06/16 21:56 Crenated Cell Not Reportable 06/06/16 21:56 Elliptocytes Not Reportable 06/06/16 21:56 Acanthocytes (Spur) Not Reportable 06/06/16 21:56 Rouleaux Not Reportable 06/06/16 21:56 Hemoglobin C Crystals Not Reportable 06/06/16 21:56 Schistocytes Not Reportable 06/06/16 21:56 Malaria parasites Not Reportable 06/06/16 21:56 Chago Bodies Not Reportable 06/06/16 21:56 Hem Pathologist Commnt No 06/06/16 21:56 PT 15.9 Sec. (12.2-14.9) H 06/06/16 21:56 INR 1.28 (0.87-1.13) H 06/06/16 21:56 VBG pH 7.437 (7.320-7.420) H 06/06/16 21:56 Sodium 156 mmol/L (137-145) H 06/11/16 04:52 Potassium 3.7 mmol/L (3.6-5.0) 06/11/16 04:52 Chloride 114.3 mmol/L (98-107) H 06/11/16 04:52 Carbon Dioxide 31 mmol/L (22-30) H 06/11/16 04:52 Anion Gap 14 mmol/L 06/11/16 04:52 BUN 22 mg/dL (7-17) H 06/11/16 04:52 Creatinine 0.8 mg/dL (0.7-1.2) 06/11/16 04:52 Estimated GFR > 60 ml/min 06/11/16 04:52 BUN/Creatinine Ratio 27.50 % 06/11/16 04:52 Glucose 125 mg/dL (65-100) H 06/11/16 04:52 Osmolality 360 Mosm/kg 06/08/16 09:36 Lactic Acid 1.2 mmol/L (0.7-2.0) 06/11/16 10:18 Calcium 9.0 mg/dL (8.4-10.2) 06/11/16 04:52 Phosphorus 2.4 mg/dL (2.5-4.5) L 06/11/16 04:52 Magnesium 2.4 mg/dL (1.7-2.3) H 06/09/16 11:00 Total Bilirubin 0.9 mg/dL (0.1-1.2) 06/11/16 04:52 AST 34 units/L (5-40) 06/11/16 04:52 ALT 51 units/L (7-56) 06/11/16 04:52 Alkaline Phosphatase 48 units/L (35-129) 06/11/16 04:52 Total Creatine Kinase 429 units/L (30-135) H 06/10/16 12:17 Total Protein 6.8 g/dL (6.3-8.2) 06/11/16 04:52 Albumin 3.3 g/dL (3.9-5) L 06/11/16 04:52 Albumin/Globulin Ratio 0.9 % 06/11/16 04:52 Urine Color Dark yellow (Yellow) 06/06/16 21:23 Urine Turbidity Clear (Clear) 06/06/16 21:23 Urine pH 6.0 (5.0-7.0) 06/06/16 21:23 Ur Specific [place] 1.025 (1.003-1.030) 06/06/16 21:23 Urine Protein 30 mg/dl mg/dL (Negative) 06/06/16 21:23 Urine Glucose (UA) Negative mg/dL (Negative) 06/06/16 21: Urine Ketones 15 mg/dL (Negative) 06/06/16 21:23 Urine Blood Large (Negative) 06/06/16 21: Urine Nitrite Negative (Negative) 06/06/16 21:23 Ur Reducing Substances Not Reportable 06/06/16 21: Urine Bilirubin Negative (Negative) 06/06/16 21: Urine Ictotest Not Reportable 06/06/16 21:23 Urine Urobilinogen < 2.0 mg/dL (<2.0) 06/06/16 21:23 Ur Leukocyte Esterase Negative (Negative) 06/06/16 21:23 Urine WBC (Auto) 9.0 /HPF (0.0-6.0) H 06/06/16 21:23 Urine RBC (Auto) 4.0 /HPF (0.0-6.0) 06/06/16 21:23 U Epithel Cells (Auto) 2.0 /HPF (0-13.0) 06/06/16 21:23 Urine Mucus 3+ /HPF 06/06/16 21:23 Urine Osmolality 795 Mosm/kg 06/08/16 10:13 Urine Sodium 26 mEq/L 06/08/16 10:13 Urine HCG, Qual Negative (Negative) 06/06/16 21:23 Urine Opiates Screen Presumptive negative 06/06/16 21:23 Urine Methadone Screen Presumptive negative 06/06/16 21:23 Ur Barbiturates Screen Presumptive negative 06/06/16 21:23 Ur Phencyclidine Scrn Presumptive negative 06/06/16 21:23 Ur Amphetamines Screen Presumptive negative 06/06/16 21:23 U Benzodiazepines Scrn Presumptive negative 06/06/16 21:23 [place] 0.1 mmol/L (0.0-1.2) 06/09/16 13:30 Urine Cocaine Screen Presumptive negative 06/06/16 21:23 U Marijuana (THC) Screen Presumptive negative 06/06/16 21:23 Drugs of Abuse Note Disclamer 06/06/16 21:23 Plasma/Serum Alcohol < 0.01 gm% (0-0.07) 06/06/16 21:56
[2016-06-11] MEDS: FLAGYL 500 MG/100 ML 100 ML IV SCH ×2 (15:26→22:35)
[2016-06-11] MEDS: K-PHOS NEUTRAL FEEDTUBE SCH ×3 (15:28→22:35)
[2016-06-11] MEDS: VIMPAT 100 MG in NACL 0.9% 100 ML IV SCH ×2 (17:47→21:35)
[2016-06-12] MEDS: FLAGYL 500 MG/100 ML 100 ML IV SCH ×3 (06:15→22:39)
[2016-06-12] MEDS: D5W 1,000 ML IV SCH ×2 (06:15→18:37)
[2016-06-12 07:27] LABS: Hematocrit 40.8 % (30.3-42.9); Hemoglobin 13.2 gm/dl (10.1-14.3); Mean Corpuscular HGB Conc 32 % (30-34); Mean Corpuscular Hemoglobin 30 pg (28-32); Mean Corpuscular Volume 92 fl (79-97); Platelet Count 175 K/mm3 (140-440); Red Blood Count 4.47 M/mm3 (3.65-5.03); Red Cell Distribution Width 13.1 % (13.2-15.2); White Blood Count 9.1 K/mm3 (4.5-11.0)
[2016-06-12 08:16] LABS: Anion Gap 15 mmol/L; Blood Urea Nitrogen 24 mg/dL (7-17); Calcium 8.6 mg/dL (8.4-10.2); Carbon Dioxide 30 mmol/L (22-30); Chloride 113.2 mmol/L (98-107); Creatine Kinase 194 units/L (30-135); Glucose 102 mg/dL (65-100); Potassium 3.8 mmol/L (3.6-5.0); Sodium 154 mmol/L (137-145)
--- NOTE | 2016-06-12 08:20 | Progress Note ---
Assessment and Plan 1. Hypernatremia: Secondary to dehydration. Sodium level remain elevated. Increase D5W to 150 ml /hr and water flushes to 250 ml Q4hr. Monitor Sodium level. 2. FLORIAN: Likely secondary to volume depletion. Renal function is normal now. 3. Hypokalemia: K level is better. 4. Mild Rhabdomyolysis: CK level is improving. 5. Pneumonia. 6. Sepsis. 7. Catatonia: Neuro following. 8. Dysphagia: S/p feeding tube. Subjective Date of service: 06/12/16 Principal diagnosis: Inability to swallow Interval history: Unable to get any history from patient. Objective - Vital Signs Vital signs: Vital Signs - 12hr 06/11/16 20:44 O2 Sat by Pulse 96 Oximetry - General Appearance General appearance: well-developed, other (RN present in the room, tremors noted ) EENT: PERRL, mucous membranes dry Neck: supple Respiratory: Present: Clear to Ascultation Cardiology: regular, S1S2, no murmurs Gastrointestinal: normoactive bowel sounds, no tenderness, no distended Integumentary: other (right hand blisters) Neurologic: other (tremors noted, not following command) Musculoskeletal: other (no edema) - Lab 06/12/16 06:14 06/12/16 06:14 Most recent lab results Calcium 8.6 mg/dL (8.4-10.2) 06/12/16 06:14 Phosphorus 2.4 mg/dL (2.5-4.5) L 06/11/16 04:52 Magnesium 2.4 mg/dL (1.7-2.3) H 06/09/16 11:00 Urine Sodium 26 mEq/L 06/08/16 10:13
[2016-06-12 08:24] LABS: Phosphorous 3.7 mg/dL (2.5-4.5)
[2016-06-12] MEDS: VIMPAT 100 MG in NACL 0.9% 100 ML IV SCH ×2 (08:41→20:20)
--- NOTE | 2016-06-12 09:51 | Progress Note ---
Assessment and Plan Assessment and plan: Sepsis.. Repeat cultures. No new leukocytosis. Discontinued Levaquin, continue Flagyl as patient area. Stool for C. difficile ordered Right lower lobe pneumonia. Aspiration precautions. Acute kidney injury from ATN/sepsis. Resolved. Nephrology input appreciated. [place]. Replace and recheck in the morning Hypernatremia . Nephrology following. Continue iv fluids D5W. Monitor sodium daily. Rhabdomyolysis. Improving, creatinine kinase 194 today Schizophrenia. psych consulted. Dysphagia. Speech evaluation noted, started on tube feeding DVT prophylaxis. Lovenox daily History Interval history: Patient with sepsis, pneumonia, FLORIAN, Fever of 101.3 yesterday Hospitalist Physical - Physical exam Narrative exam: Gen appearance: Not in acute distress, HEENT: Normocephalic,atraumatic Neck : supple, no JVD Lungs: Clear to auscultation bilaterally, no crackles or wheezes. Heart : S1 and S2 regular, no murmurs rubs or gallop, Abdomen: soft nontender, nondistended, normal bowel sounds Extremities: No edema, no clubbing or cyanosis, Neuro : lethargic, - Constitutional Vitals: Temp Pulse Resp BP Pulse Ox 98.5 F 86 18 124/78 96 06/12/16 07:15 06/12/16 07:15 06/12/16 07:15 06/12/16 07:15 06/12/16 08:39 General appearance: Present: no acute distress, well-nourished Results - Labs CBC & Chem 7: 06/12/16 06:14 06/12/16 06:14 Labs: Laboratory Last Values WBC 9.1 K/mm3 (4.5-11.0) 06/12/16 06:14 RBC 4.47 M/mm3 (3.65-5.03) 06/12/16 06:14 Hgb 13.2 gm/dl (10.1-14.3) 06/12/16 06:14 Hct 40.8 % (30.3-42.9) 06/12/16 06:14 MCV 92 fl (79-97) 06/12/16 06:14 MCH 30 pg (28-32) 06/12/16 06:14 MCHC 32 % (30-34) 06/12/16 06:14 RDW 13.1 % (13.2-15.2) L 06/12/16 06:14 Plt Count 175 K/mm3 (140-440) 06/12/16 06:14 Lymph % (Auto) 6.0 % (13.4-35.0) L 06/08/16 06:39 [place] % (Auto) 5.5 % (0.0-7.3) 06/08/16 06:39 Eos % (Auto) 0.2 % (0.0-4.3) 06/08/16 06:39 Baso % (Auto) 0.1 % (0.0-1.8) 06/08/16 06:39 Lymph # 0.6 K/mm3 (1.2-5.4) L 06/08/16 06:39 [place] # 0.6 K/mm3 (0.0-0.8) 06/08/16 06:39 Eos # 0.0 K/mm3 (0.0-0.4) 06/08/16 06:39 Baso # 0.0 K/mm3 (0.0-0.1) 06/08/16 06:39 Add Manual Diff Complete 06/06/16 21:56 Total Counted 100 06/06/16 21:56 Seg Neutrophils % 88.2 % (40.0-70.0) H 06/08/16 06:39 Seg Neuts % (Manual) 95.0 % (40.0-70.0) H 06/06/16 21:56 Band Neutrophils % 1.0 % 06/06/16 21:56 Lymphocytes % (Manual) 3.0 % (13.4-35.0) L 06/06/16 21:56 Reactive Lymphs % (Man) 0 % 06/06/16 21:56 Monocytes % (Manual) 1.0 % (0.0-7.3) 06/06/16 21:56 Eosinophils % (Manual) 0 % (0.0-4.3) 06/06/16 21:56 Basophils % (Manual) 0 % (0.0-1.8) 06/06/16 21:56 Metamyelocytes % 0 % 06/06/16 21:56 Myelocytes % 0 % 06/06/16 21:56 Promyelocytes % 0 % 06/06/16 21:56 Blast Cells % 0 % 06/06/16 21:56 Nucleated RBC % Not Reportable 06/06/16 21:56 Seg Neutrophils # 9.2 K/mm3 (1.8-7.7) H 06/08/16 06:39 Seg Neutrophils # Man 16.7 K/mm3 (1.8-7.7) H 06/06/16 21:56 Band Neutrophils # 0.2 K/mm3 06/06/16 21:56 Lymphocytes # (Manual) 0.5 K/mm3 (1.2-5.4) L 06/06/16 21:56 Abs React Lymphs (Man) 0.0 K/mm3 06/06/16 21:56 Monocytes # (Manual) 0.2 K/mm3 (0.0-0.8) 06/06/16 21:56 Eosinophils # (Manual) 0.0 K/mm3 (0.0-0.4) 06/06/16 21:56 Basophils # (Manual) 0.0 K/mm3 (0.0-0.1) 06/06/16 21:56 Metamyelocytes # 0.0 K/mm3 06/06/16 21:56 Myelocytes # 0.0 K/mm3 06/06/16 21:56 Promyelocytes # 0.0 K/mm3 06/06/16 21:56 Blast Cells # 0.0 K/mm3 06/06/16 21:56 WBC Morphology Not Reportable 06/06/16 21:56 Hypersegmented Neuts Not Reportable 06/06/16 21:56 Hyposegmented Neuts Not Reportable 06/06/16 21:56 Hypogranular Neuts Not Reportable 06/06/16 21:56 Smudge Cells Not Reportable 06/06/16 21:56 Toxic Granulation Not Reportable 06/06/16 21:56 Toxic Vacuolation Not Reportable 06/06/16 21:56 Dohle Bodies Not Reportable 06/06/16 21:56 Pelger-Huet Anomaly Not Reportable 06/06/16 21:56 Guerda Rods Not Reportable 06/06/16 21:56 Platelet Estimate Consistent w auto 06/06/16 21:56 Clumped Platelets Not Reportable 06/06/16 21:56 Plt Clumps, EDTA Not Reportable 06/06/16 21:56 Large Platelets Not Reportable 06/06/16 21:56 Giant Platelets Not Reportable 06/06/16 21:56 Platelet Satelliting Not Reportable 06/06/16 21:56 Plt Morphology Comment Not Reportable 06/06/16 21:56 RBC Morphology Normal 06/06/16 21:56 Dimorphic RBCs Not Reportable 06/06/16 21:56 Polychromasia Not Reportable 06/06/16 21:56 Hypochromasia Not Reportable 06/06/16 21:56 Poikilocytosis Not Reportable 06/06/16 21:56 Anisocytosis Not Reportable 06/06/16 21:56 Microcytosis Not Reportable 06/06/16 21:56 Macrocytosis Not Reportable 06/06/16 21:56 Spherocytes Not Reportable 06/06/16 21:56 Pappenheimer Bodies Not Reportable 06/06/16 21:56 Sickle Cells Not Reportable 06/06/16 21:56 Target Cells Not Reportable 06/06/16 21:56 Tear Drop Cells Not Reportable 06/06/16 21:56 Ovalocytes Not Reportable 06/06/16 21:56 Helmet Cells Not Reportable 06/06/16 21:56 [place] Bodies Not Reportable 06/06/16 21:56 [place] Rings Not Reportable 06/06/16 21:56 [place] Cells Not Reportable 06/06/16 21:56 Bite Cells Not Reportable 06/06/16 21:56 Crenated Cell Not Reportable 06/06/16 21:56 Elliptocytes Not Reportable 06/06/16 21:56 Acanthocytes (Spur) Not Reportable 06/06/16 21:56 Rouleaux Not Reportable 06/06/16 21:56 Hemoglobin C Crystals Not Reportable 06/06/16 21:56 Schistocytes Not Reportable 06/06/16 21:56 Malaria parasites Not Reportable 06/06/16 21:56 [place]ago Bodies Not Reportable 06/06/16 21:56 Hem Pathologist Commnt No 06/06/16 21:56 PT 15.9 Sec. (12.2-14.9) H 06/06/16 21:56 INR 1.28 (0.87-1.13) H 06/06/16 21:56 VBG pH 7.437 (7.320-7.420) H 06/06/16 21:56 Sodium 154 mmol/L (137-145) H 06/12/16 06:14 Potassium 3.8 mmol/L (3.6-5.0) 06/12/16 06:14 Chloride 113.2 mmol/L (98-107) H 06/12/16 06:14 Carbon Dioxide 30 mmol/L (22-30) 06/12/16 06:14 Anion Gap 15 mmol/L 06/12/16 06:14 BUN 24 mg/dL (7-17) H 06/12/16 06:14 Creatinine 0.8 mg/dL (0.7-1.2) 06/12/16 06:14 Estimated GFR > 60 ml/min 06/12/16 06:14 BUN/Creatinine Ratio 30.00 % 06/12/16 06:14 Glucose 102 mg/dL (65-100) H 06/12/16 06:14 Osmolality 360 Mosm/kg 06/08/16 09:36 Lactic Acid 1.2 mmol/L (0.7-2.0) 06/11/16 14:32 Calcium 8.6 mg/dL (8.4-10.2) 06/12/16 06:14 Phosphorus 3.7 mg/dL (2.5-4.5) D 06/12/16 06:14 Magnesium 2.4 mg/dL (1.7-2.3) H 06/09/16 11:00 Total Bilirubin 0.9 mg/dL (0.1-1.2) 06/11/16 04:52 AST 34 units/L (5-40) 06/11/16 04:52 ALT 51 units/L (7-56) 06/11/16 04:52 Alkaline Phosphatase 48 units/L (35-129) 06/11/16 04:52 Ammonia 72.0 umol/L (25-60) H 06/11/16 14:32 Total Creatine Kinase 194 units/L (30-135) H 06/12/16 06:14 Total Protein 6.8 g/dL (6.3-8.2) 06/11/16 04:52 Albumin 3.3 g/dL (3.9-5) L 06/11/16 04:52 Albumin/Globulin Ratio 0.9 % 06/11/16 04:52 Urine Color Dark yellow (Yellow) 06/06/16 21:23 Urine Turbidity Clear (Clear) 06/06/16 21:23 Urine pH 6.0 (5.0-7.0) 06/06/16 21:23 Ur Specific [place] 1.025 (1.003-1.030) 06/06/16 21:23 Urine Protein 30 mg/dl mg/dL (Negative) 06/06/16 21:23 Urine Glucose (UA) Negative mg/dL (Negative) 06/06/16 21: Urine Ketones 15 mg/dL (Negative) 06/06/16 21:23 Urine Blood Large (Negative) 06/06/16 21:23 Urine Nitrite Negative (Negative) 06/06/16 21:23 Ur Reducing Substances Not Reportable 06/06/16 21: Urine Bilirubin Negative (Negative) 06/06/16 21:23 Urine Ictotest Not Reportable 06/06/16 21:23 Urine Urobilinogen < 2.0 mg/dL (<2.0) 06/06/16 21:23 Ur Leukocyte Esterase Negative (Negative) 06/06/16 21:23 Urine WBC (Auto) 9.0 /HPF (0.0-6.0) H 06/06/16 21:23 Urine RBC (Auto) 4.0 /HPF (0.0-6.0) 06/06/16 21:23 U Epithel Cells (Auto) 2.0 /HPF (0-13.0) 06/06/16 21:23 Urine Mucus 3+ /HPF 06/06/16 21:23 Urine Osmolality 795 Mosm/kg 06/08/16 10:13 Urine Sodium 26 mEq/L 06/08/16 10:13 Urine HCG, Qual Negative (Negative) 06/06/16 21:23 Urine Opiates Screen Presumptive negative 06/06/16 21:23 Urine Methadone Screen Presumptive negative 06/06/16 21:23 Ur Barbiturates Screen Presumptive negative 06/06/16 21:23 Ur Phencyclidine Scrn Presumptive negative 06/06/16 21:23 Ur Amphetamines Screen Presumptive negative 06/06/16 21:23 U Benzodiazepines Scrn Presumptive negative 06/06/16 21:23 [place] 0.1 mmol/L (0.0-1.2) 06/09/16 13:30 Urine Cocaine Screen Presumptive negative 06/06/16 21:23 U Marijuana (THC) Screen Presumptive negative 06/06/16 21:23 Drugs of Abuse Note Disclamer 06/06/16 21:23 Plasma/Serum Alcohol < 0.01 gm% (0-0.07) 06/06/16 21:56
[2016-06-12] MEDS: K-PHOS NEUTRAL FEEDTUBE SCH ×4 (10:41→22:39)
[2016-06-12] MEDS: LOVENOX SUB-Q SCH (10:41)
--- NOTE | 2016-06-12 14:42 | Gastroenterology Progress Note ---
Assessment and Plan GI: pt w/ catotonic schizophrenia w/ malnutrition - unclear overall prognosis of psych disease, awaiting psych eval - would defer PEG at thsi time at least until psych eval and disease prognosis known - agree w/ tube feeds - no other changes at thsi time - will follow Subjective Date of service: 06/12/16 Principal diagnosis: Inability to swallow Interval history: - no GI issues overnight Objective - Constitutional Vitals: Temp Pulse Resp BP Pulse Ox 98.5 F 86 18 124/78 96 06/12/16 07:15 06/12/16 07:15 06/12/16 07:15 06/12/16 07:15 06/12/16 08:39 General appearance: no acute distress - Respiratory Respiratory: bilateral: CTA - Cardiovascular Rhythm: regular Heart Sounds: Present: S1 & S2 - Gastrointestinal General gastrointestinal: Present: soft, non-tender - Labs CBC & Chem 7: 06/12/16 06:14 06/12/16 06:14 Labs: Laboratory Results - last 24 hr 06/11/16 06/11/16 06/12/16 14:32 14:32 06:14 WBC 9.1 RBC 4.47 Hgb 13.2 Hct 40.8 MCV 92 MCH 30 MCHC 32 RDW 13.1 L Plt Count 175 Sodium Potassium Chloride Carbon Dioxide Anion Gap BUN Creatinine Estimated GFR BUN/Creatinine Ratio Glucose Lactic Acid 1.2 Calcium Phosphorus Ammonia 72.0 H Total Creatine Kinase 06/12/16 06:14 WBC RBC Hgb Hct MCV MCH MCHC RDW Plt Count Sodium 154 H Potassium 3.8 Chloride 113.2 H Carbon Dioxide 30 Anion Gap 15 BUN 24 H Creatinine 0.8 Estimated GFR > 60 BUN/Creatinine Ratio 30.00 Glucose 102 H Lactic Acid Calcium 8.6 Phosphorus 3.7 D Ammonia Total Creatine Kinase 194 H
[2016-06-13] MEDS: D5W 1,000 ML IV SCH ×2 (02:38→13:59)
[2016-06-13 03:10] LABS: Bilirubin,Urine NEG (Negative); Blood,Urine MOD (Negative); Ketones,Urine NEG (Negative); Leukocyte Esterase,Urine TR (Negative); Mucus,Urine 3+ /HPF; Nitrite,Urine NEG (Negative); Protein,Urine <15 mg/dL mg/dL (Negative); Urobilinogen,Urine < 2.0 mg/dL (<2.0)
--- NOTE | 2016-06-13 13:56 | Gastroenterology Progress Note ---
Assessment and Plan - Patient Problems (1) Inability to swallow Current Visit: Yes Status: Acute Plan to address problem: The patient has a Dobhoff tube and is tolerating tube feeds. Will not plan PEG unless prognosis is clear and there is a mechanism for consent. I will s/o at this point and f/u at your request. Thank you for asking us to be involved in her care. (2) Catatonia Current Visit: Yes Status: Acute (3) Sepsis Current Visit: Yes Status: Acute Qualifiers: Sepsis type: S Subjective Date of service: 06/13/16 Principal diagnosis: Inability to swallow Interval history: Awake. Unresponsive. No speech. Objective - Constitutional Vitals: Temp Pulse Resp BP Pulse Ox 98.8 F 92 H 20 155/92 96 06/13/16 00:00 06/13/16 00:00 06/13/16 00:00 06/13/16 00:00 06/13/16 00:00 General appearance: no acute distress - Neck Neck: supple, normal ROM - Respiratory Respiratory effort: normal Respiratory: bilateral: CTA - Cardiovascular Rhythm: regular - Gastrointestinal General gastrointestinal: Present: soft, non-tender, non-distended, normal bowel sounds - Neurologic Neurological: other (moves all extemities, tremulous) - Labs CBC & Chem 7: 06/12/16 06:14 06/12/16 06:14 Labs: Laboratory Results - last 24 hr 06/13/16 02:15 Urine Color Yellow Urine Turbidity Slightly-cloudy Urine pH 7.0 Ur Specific [place] 1.018 Urine Protein <15 mg/dl Urine Glucose (UA) 50 Urine Ketones Neg Urine Blood Mod Urine Nitrite Neg Urine Bilirubin Neg Urine Urobilinogen < 2.0 Ur Leukocyte Esterase Tr Urine WBC (Auto) 5.0 Urine RBC (Auto) 39.0 U Epithel Cells (Auto) < 1.0 Amorphous Crystals Few Urine Mucus 3+
[2016-06-13] MEDS: K-PHOS NEUTRAL FEEDTUBE SCH ×4 (14:00→21:19)
[2016-06-13] MEDS: FLAGYL 500 MG/100 ML 100 ML IV SCH ×2 (14:00→21:19)
--- NOTE | 2016-06-13 18:12 | Progress Note ---
Assessment and Plan 1. Hypernatremia: Secondary to dehydration. Sodium level remain elevated. Continue D5W at 150 ml /hr and water flushes at 250 ml Q4hr. Monitor Sodium level. 2. FLORIAN: Likely secondary to volume depletion. Renal function is normal now. 3. Hypokalemia: K level is better. 4. Mild Rhabdomyolysis: CK level is improving. 5. Pneumonia. 6. Sepsis. 7. Catatonia: Neuro following. 8. Dysphagia: S/p feeding tube. Subjective Date of service: 06/13/16 Principal diagnosis: Inability to swallow Interval history: Patient unable to provide any history. Objective - Vital Signs Vital signs: Vital Signs - 12hr 06/13/16 10:00 O2 Sat by Pulse 97 Oximetry - General Appearance General appearance: well-developed, other (RN was present in the room, tremors noted) EENT: PERRL, mucous membranes dry, hearing intact Neck: supple Respiratory: Present: Clear to Ascultation Cardiology: regular, S1S2, no murmurs Gastrointestinal: normoactive bowel sounds, no tenderness, no distended, no guarding Integumentary: other (right hand blisters) Neurologic: other (barely able to move the extremities, non-verbal) Musculoskeletal: other (no edema) Psychiatric: cooperative - Lab 06/12/16 06:14 06/12/16 06:14 Most recent lab results Calcium 8.6 mg/dL (8.4-10.2) 06/12/16 06:14 Phosphorus 3.7 mg/dL (2.5-4.5) D 06/12/16 06:14 Magnesium 2.4 mg/dL (1.7-2.3) H 06/09/16 11:00 Urine Sodium 26 mEq/L 06/08/16 10:13
[2016-06-13] MEDS: VIMPAT 100 MG in NACL 0.9% 100 ML IV SCH ×2 (19:44→20:06)
[2016-06-13] MEDS: LOVENOX SUB-Q SCH (19:46)
[2016-06-14] MEDS: D5W 1,000 ML IV SCH ×2 (01:24→09:38)
[2016-06-14] MEDS: FLAGYL 500 MG/100 ML 100 ML IV SCH ×3 (05:24→18:47)
[2016-06-14 06:52] LABS: Blood Urea Nitrogen 8 mg/dL (7-17); Calcium 8.5 mg/dL (8.4-10.2); Carbon Dioxide 31 mmol/L (22-30); Chloride 95.4 mmol/L (98-107); Glucose 117 mg/dL (65-100); Magnesium 1.9 mg/dL (1.7-2.3); Potassium 3.2 mmol/L (3.6-5.0); Sodium 138 mmol/L (137-145)
[2016-06-14 06:57] LABS: Anion Gap 15 mmol/L
--- NOTE | 2016-06-14 08:54 | Progress Note ---
Assessment and Plan 1. Hypernatremia: Secondary to dehydration. Sodium level has improved. Decrease D5W to 50 ml /hr and continue water flushes at 250 ml Q4hr. Monitor Sodium level. 2. FLORIAN: Renal function has improved. 3. Hypokalemia: Replete K. 4. Mild Rhabdomyolysis. 5. Pneumonia. 6. Sepsis. 7. Catatonia: Neuro following. 8. Dysphagia: S/p feeding tube. Subjective Date of service: 06/14/16 Principal diagnosis: Inability to swallow Interval history: Patient is non-verbal. Objective - Vital Signs Vital signs: Vital Signs - 12hr 06/13/16 06/14/16 06/14/16 20:41 00:00 04:00 Temperature 98.3 F 97.0 F L Pulse Rate [ 116 H 81 Apical] Respiratory 20 20 Rate Blood Pressure 153/80 125/80 [Right Arm] O2 Sat by Pulse 100 95 100 Oximetry - General Appearance General appearance: well-developed, other (RN was present in the room) EENT: PERRL, mucous membranes dry Neck: no carotid bruit Respiratory: Present: Clear to Ascultation Cardiology: regular, S1S2, no murmurs Gastrointestinal: normoactive bowel sounds, no tenderness, no distended Integumentary: other (right hand blisters) Neurologic: other (Generalized increase in the muscle tone, shaking / tremors noted) Musculoskeletal: other (no edema) - Lab 06/12/16 06:14 06/14/16 05:53 Most recent lab results Calcium 8.5 mg/dL (8.4-10.2) 06/14/16 05:53 Phosphorus 3.7 mg/dL (2.5-4.5) D 06/12/16 06:14 Magnesium 1.9 mg/dL (1.7-2.3) 06/14/16 05:53 Urine Sodium 26 mEq/L 06/08/16 10:13
[2016-06-14] MEDS ORDERED: KCL 10MEQ/100ML 10 MEQ/100 ML BAG IV SCH (09:00)
[2016-06-14] MEDS: KCL 10MEQ/100ML 10 MEQ/100 ML BAG IV SCH ×4 (09:37→15:20)
[2016-06-14] MEDS: K-PHOS NEUTRAL FEEDTUBE SCH ×4 (09:38→22:13)
[2016-06-14] MEDS: LOVENOX SUB-Q SCH (09:38)
[2016-06-14] MEDS: VIMPAT 100 MG in NACL 0.9% 100 ML IV SCH ×3 (13:30→22:01)
--- NOTE | 2016-06-14 17:19 | Progress Note ---
Assessment and Plan Assessment and plan: Sepsis. Levaquin Right lower lobe pneumonia. Aspiration precautions. Levaquin iv Acute kidney injury from ATN/sepsis. Resolved. Nephrology input appreciated. HypoKalemia. Replace and recheck in the morning Hypernatremia . This is now resolved. Sodium 138 today. Nephrology following. Continue iv fluids D5W. Monitor sodium daily. Rhabdomyolysis. Improving, creatinine kinase improved. Schizophrenia, catatonic. Psych consulted. Dysphagia. Will discuss PEG tube placement with GI. DVT prophylaxis. Lovenox daily. Full code status History Interval history: Patient with sepsis, pneumonia, FLORIAN, No fever past 24 hours , Hospitalist Physical - Physical exam Narrative exam: Gen appearance: Not in acute distress, HEENT: Normocephalic,atraumatic Neck : supple, no JVD Lungs: Clear to auscultation bilaterally, no crackles or wheezes. Heart : S1 and S2 regular, no murmurs rubs or gallop, Abdomen: soft nontender, nondistended, normal bowel sounds Extremities: No edema, no clubbing or cyanosis, Neuro : catatonic, more alert, non-verbal - Constitutional Vitals: Temp Pulse Resp BP Pulse Ox 99.0 F 99 H 20 145/81 98 06/14/16 07:15 06/14/16 15:35 06/14/16 15:35 06/14/16 15:35 06/14/16 07:52 General appearance: Present: no acute distress, well-nourished Results - Labs CBC & Chem 7: 06/12/16 06:14 06/14/16 05:53 Labs: Laboratory Last Values WBC 9.1 K/mm3 (4.5-11.0) 06/12/16 06:14 RBC 4.47 M/mm3 (3.65-5.03) 06/12/16 06:14 Hgb 13.2 gm/dl (10.1-14.3) 06/12/16 06:14 Hct 40.8 % (30.3-42.9) 06/12/16 06:14 MCV 92 fl (79-97) 06/12/16 06:14 MCH 30 pg (28-32) 06/12/16 06:14 MCHC 32 % (30-34) 06/12/16 06:14 RDW 13.1 % (13.2-15.2) L 06/12/16 06:14 Plt Count 175 K/mm3 (140-440) 06/12/16 06:14 Lymph % (Auto) 6.0 % (13.4-35.0) L 06/08/16 06:39 [place] % (Auto) 5.5 % (0.0-7.3) 06/08/16 06:39 Eos % (Auto) 0.2 % (0.0-4.3) 06/08/16 06:39 Baso % (Auto) 0.1 % (0.0-1.8) 06/08/16 06:39 Lymph # 0.6 K/mm3 (1.2-5.4) L 06/08/16 06:39 [place] # 0.6 K/mm3 (0.0-0.8) 06/08/16 06:39 Eos # 0.0 K/mm3 (0.0-0.4) 06/08/16 06:39 Baso # 0.0 K/mm3 (0.0-0.1) 06/08/16 06:39 Add Manual Diff Complete 06/06/16 21:56 Total Counted 100 06/06/16 21:56 Seg Neutrophils % 88.2 % (40.0-70.0) H 06/08/16 06:39 Seg Neuts % (Manual) 95.0 % (40.0-70.0) H 06/06/16 21:56 Band Neutrophils % 1.0 % 06/06/16 21:56 Lymphocytes % (Manual) 3.0 % (13.4-35.0) L 06/06/16 21:56 Reactive Lymphs % (Man) 0 % 06/06/16 21:56 Monocytes % (Manual) 1.0 % (0.0-7.3) 06/06/16 21:56 Eosinophils % (Manual) 0 % (0.0-4.3) 06/06/16 21:56 Basophils % (Manual) 0 % (0.0-1.8) 06/06/16 21:56 Metamyelocytes % 0 % 06/06/16 21:56 Myelocytes % 0 % 06/06/16 21:56 Promyelocytes % 0 % 06/06/16 21:56 Blast Cells % 0 % 06/06/16 21:56 Nucleated RBC % Not Reportable 06/06/16 21:56 Seg Neutrophils # 9.2 K/mm3 (1.8-7.7) H 06/08/16 06:39 Seg Neutrophils # Man 16.7 K/mm3 (1.8-7.7) H 06/06/16 21:56 Band Neutrophils # 0.2 K/mm3 06/06/16 21:56 Lymphocytes # (Manual) 0.5 K/mm3 (1.2-5.4) L 06/06/16 21:56 Abs React Lymphs (Man) 0.0 K/mm3 06/06/16 21:56 Monocytes # (Manual) 0.2 K/mm3 (0.0-0.8) 06/06/16 21:56 Eosinophils # (Manual) 0.0 K/mm3 (0.0-0.4) 06/06/16 21:56 Basophils # (Manual) 0.0 K/mm3 (0.0-0.1) 06/06/16 21:56 Metamyelocytes # 0.0 K/mm3 06/06/16 21:56 Myelocytes # 0.0 K/mm3 06/06/16 21:56 Promyelocytes # 0.0 K/mm3 06/06/16 21:56 Blast Cells # 0.0 K/mm3 06/06/16 21:56 WBC Morphology Not Reportable 06/06/16 21:56 Hypersegmented Neuts Not Reportable 06/06/16 21:56 Hyposegmented Neuts Not Reportable 06/06/16 21:56 Hypogranular Neuts Not Reportable 06/06/16 21:56 Smudge Cells Not Reportable 06/06/16 21:56 Toxic Granulation Not Reportable 06/06/16 21:56 Toxic Vacuolation Not Reportable 06/06/16 21:56 Dohle Bodies Not Reportable 06/06/16 21:56 Pelger-Huet Anomaly Not Reportable 06/06/16 21:56 Guerda Rods Not Reportable 06/06/16 21:56 Platelet Estimate Consistent w auto 06/06/16 21:56 Clumped Platelets Not Reportable 06/06/16 21:56 Plt Clumps, EDTA Not Reportable 06/06/16 21:56 Large Platelets Not Reportable 06/06/16 21:56 Giant Platelets Not Reportable 06/06/16 21:56 Platelet Satelliting Not Reportable 06/06/16 21:56 Plt Morphology Comment Not Reportable 06/06/16 21:56 RBC Morphology Normal 06/06/16 21:56 Dimorphic RBCs Not Reportable 06/06/16 21:56 Polychromasia Not Reportable 06/06/16 21:56 Hypochromasia Not Reportable 06/06/16 21:56 Poikilocytosis Not Reportable 06/06/16 21:56 Anisocytosis Not Reportable 06/06/16 21:56 Microcytosis Not Reportable 06/06/16 21:56 Macrocytosis Not Reportable 06/06/16 21:56 Spherocytes Not Reportable 06/06/16 21:56 Pappenheimer Bodies Not Reportable 06/06/16 21:56 Sickle Cells Not Reportable 06/06/16 21:56 Target Cells Not Reportable 06/06/16 21:56 Tear Drop Cells Not Reportable 06/06/16 21:56 Ovalocytes Not Reportable 06/06/16 21:56 Helmet Cells Not Reportable 06/06/16 21:56 Tamayo-Abram Bodies Not Reportable 06/06/16 21:56 [place] Rings Not Reportable 06/06/16 21:56 [place] Cells Not Reportable 06/06/16 21:56 Bite Cells Not Reportable 06/06/16 21:56 Crenated Cell Not Reportable 06/06/16 21:56 Elliptocytes Not Reportable 06/06/16 21:56 Acanthocytes (Spur) Not Reportable 06/06/16 21:56 Rouleaux Not Reportable 06/06/16 21:56 Hemoglobin C Crystals Not Reportable 06/06/16 21:56 Schistocytes Not Reportable 06/06/16 21:56 Malaria parasites Not Reportable 06/06/16 21:56 Chago Bodies Not Reportable 06/06/16 21:56 Hem Pathologist Commnt No 06/06/16 21:56 PT 15.9 Sec. (12.2-14.9) H 06/06/16 21:56 INR 1.28 (0.87-1.13) H 06/06/16 21:56 VBG pH 7.437 (7.320-7.420) H 06/06/16 21:56 Sodium 138 mmol/L (137-145) D 06/14/16 05:53 Potassium 3.2 mmol/L (3.6-5.0) L 06/14/16 05:53 Chloride 95.4 mmol/L (98-107) L 06/14/16 05:53 Carbon Dioxide 31 mmol/L (22-30) H 06/14/16 05:53 Anion Gap 15 mmol/L 06/14/16 05:53 BUN 8 mg/dL (7-17) 06/14/16 05:53 Creatinine 0.5 mg/dL (0.7-1.2) L 06/14/16 05:53 Estimated GFR > 60 ml/min 06/14/16 05:53 BUN/Creatinine Ratio 16.00 % 06/14/16 05:53 Glucose 117 mg/dL (65-100) H 06/14/16 05:53 Osmolality 286 Mosm/kg 06/14/16 05:53 Lactic Acid 1.2 mmol/L (0.7-2.0) 06/11/16 14:32 Calcium 8.5 mg/dL (8.4-10.2) 06/14/16 05:53 Phosphorus 3.7 mg/dL (2.5-4.5) D 06/12/16 06:14 Magnesium 1.9 mg/dL (1.7-2.3) 06/14/16 05:53 Total Bilirubin 0.9 mg/dL (0.1-1.2) 06/11/16 04:52 AST 34 units/L (5-40) 06/11/16 04:52 ALT 51 units/L (7-56) 06/11/16 04:52 Alkaline Phosphatase 48 units/L (35-129) 06/11/16 04:52 Ammonia 72.0 umol/L (25-60) H 06/11/16 14:32 Total Creatine Kinase 194 units/L (30-135) H 06/12/16 06:14 Total Protein 6.8 g/dL (6.3-8.2) 06/11/16 04:52 Albumin 3.3 g/dL (3.9-5) L 06/11/16 04:52 Albumin/Globulin Ratio 0.9 % 06/11/16 04:52 Urine Color Yellow (Yellow) 06/13/16 02:15 Urine Turbidity Slightly-cloudy (Clear) 06/13/16 02:15 Urine pH 7.0 (5.0-7.0) 06/13/16 02:15 Ur Specific [place] 1.018 (1.003-1.030) 06/13/16 02:15 Urine Protein <15 mg/dl mg/dL (Negative) 06/13/16 02:15 Urine Glucose (UA) 50 mg/dL (Negative) 06/13/16 02:15 Urine Ketones Neg mg/dL (Negative) 06/13/16 02:15 Urine Blood Mod (Negative) 06/13/16 02:15 Urine Nitrite Neg (Negative) 06/13/16 02:15 Ur Reducing Substances Not Reportable 06/06/16 21:23 Urine Bilirubin Neg (Negative) 06/13/16 02:15 Urine Ictotest Not Reportable 06/06/16 21:23 Urine Urobilinogen < 2.0 mg/dL (<2.0) 06/13/16 02:15 Ur Leukocyte Esterase Tr (Negative) 06/13/16 02:15 Urine WBC (Auto) 5.0 /HPF (0.0-6.0) 06/13/16 02:15 Urine RBC (Auto) 39.0 /HPF (0.0-6.0) 06/13/16 02:15 U Epithel Cells (Auto) < 1.0 /HPF (0-13.0) 06/13/16 02:15 Amorphous Crystals Few 06/13/16 02:15 Urine Mucus 3+ /HPF 06/13/16 02:15 Urine Osmolality 795 Mosm/kg 06/08/16 10:13 Urine Sodium 26 mEq/L 06/08/16 10:13 Urine HCG, Qual Negative (Negative) 06/06/16 21:23 Urine Opiates Screen Presumptive negative 06/06/16 21:23 Urine Methadone Screen Presumptive negative 06/06/16 21:23 Ur Barbiturates Screen Presumptive negative 06/06/16 21:23 Ur Phencyclidine Scrn Presumptive negative 06/06/16 21:23 Ur Amphetamines Screen Presumptive negative 06/06/16 21:23 U Benzodiazepines Scrn Presumptive negative 06/06/16 21:23 [place] 0.1 mmol/L (0.0-1.2) 06/09/16 13:30 Urine Cocaine Screen Presumptive negative 06/06/16 21:23 U Marijuana (THC) Screen Presumptive negative 06/06/16 21:23 Drugs of Abuse Note Disclamer 06/06/16 21:23 Plasma/Serum Alcohol < 0.01 gm% (0-0.07) 06/06/16 21:56
[2016-06-14] MEDS ORDERED: LEVAQUIN 500MG/100ML 100 ML IV SCH (18:00)
[2016-06-14 18:38] LABS: Blood Urea Nitrogen 11 mg/dL (7-17); Calcium 8.4 mg/dL (8.4-10.2); Carbon Dioxide 30 mmol/L (22-30); Chloride 93.3 mmol/L (98-107); Glucose 130 mg/dL (65-100); Potassium 3.6 mmol/L (3.6-5.0); Sodium 134 mmol/L (137-145)
[2016-06-14 18:45] LABS: Anion Gap 14 mmol/L
[2016-06-14] MEDS: ZOFRAN IV PRN (18:47)
[2016-06-14] MEDS: LEVAQUIN 750MG/150ML 750 MG/150 ML BAG IV SCH (21:09)
[2016-06-15] MEDS: FLAGYL 500 MG/100 ML 100 ML IV SCH ×4 (01:29→22:06)
[2016-06-15] MEDS: ZOFRAN IV PRN ×3 (02:49→23:32)
--- NOTE | 2016-06-15 07:54 | Progress Note ---
Assessment and Plan 1. Hypernatremia: Secondary to dehydration. Sodium level has improved. Continue D5W at 50 ml /hr and water flushes at 250 ml Q4hr. Monitor Sodium level. 2. FLORIAN: Renal function has improved. 3. Hypokalemia: Replete K and phos. 4. Mild Rhabdomyolysis. 5. Pneumonia. 6. Sepsis. 7. Catatonia: Neuro following. 8. Dysphagia: S/p feeding tube. Subjective Date of service: 06/15/16 Principal diagnosis: Inability to swallow Interval history: Patient is non-verbal. Objective - Vital Signs Vital signs: Vital Signs - 12hr 06/14/16 06/15/16 21:17 00:00 Temperature 98.4 F Pulse Rate [ 85 Apical] Respiratory 20 Rate Blood Pressure 102/60 [Right Arm] O2 Sat by Pulse 96 99 Oximetry - General Appearance General appearance: well-developed, other (RN was present in the room, non- verbal) EENT: PERRL, mucous membranes moist Neck: no carotid bruit, supple Respiratory: Present: Clear to Ascultation Cardiology: regular, S1S2, no murmurs Gastrointestinal: normoactive bowel sounds, no tenderness, no distended, no guarding Integumentary: other (right hand blisters) Neurologic: other (not following command, tremors noted) Musculoskeletal: other (no edema) - Lab 06/12/16 06:14 06/15/16 08:18 Most recent lab results Calcium 8.4 mg/dL (8.4-10.2) 06/14/16 17:53 Phosphorus 3.7 mg/dL (2.5-4.5) D 06/12/16 06:14 Magnesium 1.9 mg/dL (1.7-2.3) 06/14/16 05:53 Urine Sodium 26 mEq/L 06/08/16 10:13
[2016-06-15 09:24] LABS: Anion Gap 14 mmol/L; Blood Urea Nitrogen 12 mg/dL (7-17); Calcium 8.2 mg/dL (8.4-10.2); Carbon Dioxide 31 mmol/L (22-30); Glucose 112 mg/dL (65-100); Magnesium 2.1 mg/dL (1.7-2.3); Phosphorous 2.3 mg/dL (2.5-4.5); Potassium 3.1 mmol/L (3.6-5.0); Sodium 139 mmol/L (137-145)
[2016-06-15] MEDS: VIMPAT 100 MG in NACL 0.9% 100 ML IV SCH ×2 (09:38→20:34)
[2016-06-15] MEDS: LOVENOX SUB-Q SCH (10:05)
[2016-06-15] MEDS: K-PHOS NEUTRAL FEEDTUBE SCH ×3 (10:05→22:06)
[2016-06-15] MEDS: POTASSIUM CHLORIDE FEEDTUBE SCH ×2 (10:05→18:50)
[2016-06-15] MEDS ORDERED: SIMPLE SYRUP FEEDTUBE PRN ×2 (12:29)
[2016-06-15] MEDS ORDERED: SODIUM BICARBONATE FEEDTUBE PRN (12:29)
[2016-06-15] MEDS ORDERED: PANCREAZE DR 10,500 UNIT FEEDTUBE PRN (12:29)
--- NOTE | 2016-06-15 15:07 | Progress Note ---
Assessment and Plan Assessment and plan: Sepsis. Levaquin Right lower lobe pneumonia. Aspiration precautions. Levaquin iv Acute kidney injury from ATN/sepsis. Resolved. Creatinine 0.5 today. HypoKalemia. Replace and recheck in the morning Hypernatremia . This is now resolved. Sodium 139 today. Nephrology following. Continue iv fluids.. Rhabdomyolysis. Improving, creatinine kinase improved. Schizophrenia, catatonic. Psych consulted. Dysphagia. Discussed PEG tube placement Dr. Loaiza. He states he may place PEG tube if power of health care attorney of Patient signs consent. DVT prophylaxis. Lovenox daily. Full code status History Interval history: Patient with sepsis, pneumonia, FLORIAN, No fever past 24 hours, more alert, Hospitalist Physical - Physical exam Narrative exam: Gen appearance: Not in acute distress, HEENT: Normocephalic,atraumatic Neck : supple, no JVD Lungs: Clear to auscultation bilaterally, no crackles or wheezes. Heart : S1 and S2 regular, no murmurs rubs or gallop, Abdomen: soft nontender, nondistended, normal bowel sounds Extremities: No edema, no clubbing or cyanosis, Neuro : catatonic, more alert, non-verbal - Constitutional Vitals: Temp Pulse Resp BP Pulse Ox 97.6 F 98 H 18 124/72 95 06/15/16 12:00 06/15/16 12:00 06/15/16 12:00 06/15/16 12:00 06/15/16 12:00 General appearance: Present: no acute distress, well-nourished Results - Labs CBC & Chem 7: 06/16/16 05:45 06/15/16 08:18 Labs: Laboratory Last Values WBC 9.1 K/mm3 (4.5-11.0) 06/12/16 06:14 RBC 4.47 M/mm3 (3.65-5.03) 06/12/16 06:14 Hgb 13.2 gm/dl (10.1-14.3) 06/12/16 06:14 Hct 40.8 % (30.3-42.9) 06/12/16 06:14 MCV 92 fl (79-97) 06/12/16 06:14 MCH 30 pg (28-32) 06/12/16 06:14 MCHC 32 % (30-34) 06/12/16 06:14 RDW 13.1 % (13.2-15.2) L 06/12/16 06:14 Plt Count 175 K/mm3 (140-440) 06/12/16 06:14 Lymph % (Auto) 6.0 % (13.4-35.0) L 06/08/16 06:39 [place] % (Auto) 5.5 % (0.0-7.3) 06/08/16 06:39 Eos % (Auto) 0.2 % (0.0-4.3) 06/08/16 06:39 Baso % (Auto) 0.1 % (0.0-1.8) 06/08/16 06:39 Lymph # 0.6 K/mm3 (1.2-5.4) L 06/08/16 06:39 [place] # 0.6 K/mm3 (0.0-0.8) 06/08/16 06:39 Eos # 0.0 K/mm3 (0.0-0.4) 06/08/16 06:39 Baso # 0.0 K/mm3 (0.0-0.1) 06/08/16 06:39 Add Manual Diff Complete 06/06/16 21:56 Total Counted 100 06/06/16 21:56 Seg Neutrophils % 88.2 % (40.0-70.0) H 06/08/16 06:39 Seg Neuts % (Manual) 95.0 % (40.0-70.0) H 06/06/16 21:56 Band Neutrophils % 1.0 % 06/06/16 21:56 Lymphocytes % (Manual) 3.0 % (13.4-35.0) L 06/06/16 21:56 Reactive Lymphs % (Man) 0 % 06/06/16 21:56 Monocytes % (Manual) 1.0 % (0.0-7.3) 06/06/16 21:56 Eosinophils % (Manual) 0 % (0.0-4.3) 06/06/16 21:56 Basophils % (Manual) 0 % (0.0-1.8) 06/06/16 21:56 Metamyelocytes % 0 % 06/06/16 21:56 Myelocytes % 0 % 06/06/16 21:56 Promyelocytes % 0 % 06/06/16 21:56 Blast Cells % 0 % 06/06/16 21:56 Nucleated RBC % Not Reportable 06/06/16 21:56 Seg Neutrophils # 9.2 K/mm3 (1.8-7.7) H 06/08/16 06:39 Seg Neutrophils # Man 16.7 K/mm3 (1.8-7.7) H 06/06/16 21:56 Band Neutrophils # 0.2 K/mm3 06/06/16 21:56 Lymphocytes # (Manual) 0.5 K/mm3 (1.2-5.4) L 06/06/16 21:56 Abs React Lymphs (Man) 0.0 K/mm3 06/06/16 21:56 Monocytes # (Manual) 0.2 K/mm3 (0.0-0.8) 06/06/16 21:56 Eosinophils # (Manual) 0.0 K/mm3 (0.0-0.4) 06/06/16 21:56 Basophils # (Manual) 0.0 K/mm3 (0.0-0.1) 06/06/16 21:56 Metamyelocytes # 0.0 K/mm3 06/06/16 21:56 Myelocytes # 0.0 K/mm3 06/06/16 21:56 Promyelocytes # 0.0 K/mm3 06/06/16 21:56 Blast Cells # 0.0 K/mm3 06/06/16 21:56 WBC Morphology Not Reportable 06/06/16 21:56 Hypersegmented Neuts Not Reportable 06/06/16 21:56 Hyposegmented Neuts Not Reportable 06/06/16 21:56 Hypogranular Neuts Not Reportable 06/06/16 21:56 Smudge Cells Not Reportable 06/06/16 21:56 Toxic Granulation Not Reportable 06/06/16 21:56 Toxic Vacuolation Not Reportable 06/06/16 21:56 Dohle Bodies Not Reportable 06/06/16 21:56 Pelger-Huet Anomaly Not Reportable 06/06/16 21:56 Guerda Rods Not Reportable 06/06/16 21:56 Platelet Estimate Consistent w auto 06/06/16 21:56 Clumped Platelets Not Reportable 06/06/16 21:56 Plt Clumps, EDTA Not Reportable 06/06/16 21:56 Large Platelets Not Reportable 06/06/16 21:56 Giant Platelets Not Reportable 06/06/16 21:56 Platelet Satelliting Not Reportable 06/06/16 21:56 Plt Morphology Comment Not Reportable 06/06/16 21:56 RBC Morphology Normal 06/06/16 21:56 Dimorphic RBCs Not Reportable 06/06/16 21:56 Polychromasia Not Reportable 06/06/16 21:56 Hypochromasia Not Reportable 06/06/16 21:56 Poikilocytosis Not Reportable 06/06/16 21:56 Anisocytosis Not Reportable 06/06/16 21:56 Microcytosis Not Reportable 06/06/16 21:56 Macrocytosis Not Reportable 06/06/16 21:56 Spherocytes Not Reportable 06/06/16 21:56 Pappenheimer Bodies Not Reportable 06/06/16 21:56 Sickle Cells Not Reportable 06/06/16 21:56 Target Cells Not Reportable 06/06/16 21:56 Tear Drop Cells Not Reportable 06/06/16 21:56 Ovalocytes Not Reportable 06/06/16 21:56 Helmet Cells Not Reportable 06/06/16 21:56 Tamayo-Freer Bodies Not Reportable 06/06/16 21:56 [place] Rings Not Reportable 06/06/16 21:56 [place] Cells Not Reportable 06/06/16 21:56 Bite Cells Not Reportable 06/06/16 21:56 Crenated Cell Not Reportable 06/06/16 21:56 Elliptocytes Not Reportable 06/06/16 21:56 Acanthocytes (Spur) Not Reportable 06/06/16 21:56 Rouleaux Not Reportable 06/06/16 21:56 Hemoglobin C Crystals Not Reportable 06/06/16 21:56 Schistocytes Not Reportable 06/06/16 21:56 Malaria parasites Not Reportable 06/06/16 21:56 Chago Bodies Not Reportable 06/06/16 21:56 Hem Pathologist Commnt No 06/06/16 21:56 PT 15.9 Sec. (12.2-14.9) H 06/06/16 21:56 INR 1.28 (0.87-1.13) H 06/06/16 21:56 VBG pH 7.437 (7.320-7.420) H 06/06/16 21:56 Sodium 139 mmol/L (137-145) 06/15/16 08:18 Potassium 3.1 mmol/L (3.6-5.0) L 06/15/16 08:18 Chloride 97.0 mmol/L (98-107) L 06/15/16 08:18 Carbon Dioxide 31 mmol/L (22-30) H 06/15/16 08:18 Anion Gap 14 mmol/L 06/15/16 08:18 BUN 12 mg/dL (7-17) 06/15/16 08:18 Creatinine 0.5 mg/dL (0.7-1.2) L 06/15/16 08:18 Estimated GFR > 60 ml/min 06/15/16 08:18 BUN/Creatinine Ratio 24.00 % 06/15/16 08:18 Glucose 112 mg/dL (65-100) H 06/15/16 08:18 POC Glucose 109 (70-105) H 06/15/16 05:19 Osmolality 286 Mosm/kg 06/14/16 05:53 Lactic Acid 1.2 mmol/L (0.7-2.0) 06/11/16 14:32 Calcium 8.2 mg/dL (8.4-10.2) L 06/15/16 08:18 Phosphorus 2.3 mg/dL (2.5-4.5) L 06/15/16 08:18 Magnesium 2.1 mg/dL (1.7-2.3) 06/15/16 08:18 Total Bilirubin 0.9 mg/dL (0.1-1.2) 06/11/16 04:52 AST 34 units/L (5-40) 06/11/16 04:52 ALT 51 units/L (7-56) 06/11/16 04:52 Alkaline Phosphatase 48 units/L (35-129) 06/11/16 04:52 Ammonia 59.0 umol/L (25-60) 06/14/16 17:53 Total Creatine Kinase 194 units/L (30-135) H 06/12/16 06:14 Total Protein 6.8 g/dL (6.3-8.2) 06/11/16 04:52 Albumin 3.3 g/dL (3.9-5) L 06/11/16 04:52 Albumin/Globulin Ratio 0.9 % 06/11/16 04:52 Urine Color Yellow (Yellow) 06/13/16 02:15 Urine Turbidity Slightly-cloudy (Clear) 06/13/16 02:15 Urine pH 7.0 (5.0-7.0) 06/13/16 02:15 Ur Specific [place] 1.018 (1.003-1.030) 06/13/16 02:15 Urine Protein <15 mg/dl mg/dL (Negative) 06/13/16 02:15 Urine Glucose (UA) 50 mg/dL (Negative) 06/13/16 02:15 Urine Ketones Neg mg/dL (Negative) 06/13/16 02:15 Urine Blood Mod (Negative) 06/13/16 02:15 Urine Nitrite Neg (Negative) 06/13/16 02:15 Ur Reducing Substances Not Reportable 06/06/16 21:23 Urine Bilirubin Neg (Negative) 06/13/16 02:15 Urine Ictotest Not Reportable 06/06/16 21:23 Urine Urobilinogen < 2.0 mg/dL (<2.0) 06/13/16 02:15 Ur Leukocyte Esterase Tr (Negative) 06/13/16 02:15 Urine WBC (Auto) 5.0 /HPF (0.0-6.0) 06/13/16 02:15 Urine RBC (Auto) 39.0 /HPF (0.0-6.0) 06/13/16 02:15 U Epithel Cells (Auto) < 1.0 /HPF (0-13.0) 06/13/16 02:15 Amorphous Crystals Few 06/13/16 02:15 Urine Mucus 3+ /HPF 06/13/16 02:15 Urine Osmolality 795 Mosm/kg 06/08/16 10:13 Urine Sodium 26 mEq/L 06/08/16 10:13 Urine HCG, Qual Negative (Negative) 06/06/16 21:23 Urine Opiates Screen Presumptive negative 06/06/16 21:23 Urine Methadone Screen Presumptive negative 06/06/16 21:23 Ur Barbiturates Screen Presumptive negative 06/06/16 21:23 Ur Phencyclidine Scrn Presumptive negative 06/06/16 21:23 Ur Amphetamines Screen Presumptive negative 06/06/16 21:23 U Benzodiazepines Scrn Presumptive negative 06/06/16 21:23 [place] 0.1 mmol/L (0.0-1.2) 06/09/16 13:30 Urine Cocaine Screen Presumptive negative 06/06/16 21:23 U Marijuana (THC) Screen Presumptive negative 06/06/16 21:23 Drugs of Abuse Note Disclamer 06/06/16 21:23 Plasma/Serum Alcohol < 0.01 gm% (0-0.07) 06/06/16 21:56
[2016-06-15] MEDS: D5W 1,000 ML IV SCH (17:36)
[2016-06-15] MEDS: LEVAQUIN 750MG/150ML 750 MG/150 ML BAG IV SCH (18:53)
[2016-06-16] MEDS: FLAGYL 500 MG/100 ML 100 ML IV SCH ×3 (05:26→22:00)
[2016-06-16 06:03] LABS: Hematocrit 40.4 % (30.3-42.9); Hemoglobin 13.7 gm/dl (10.1-14.3); Mean Corpuscular HGB Conc 34 % (30-34); Mean Corpuscular Hemoglobin 30 pg (28-32); Mean Corpuscular Volume 87 fl (79-97); Platelet Count 241 K/mm3 (140-440); Red Blood Count 4.63 M/mm3 (3.65-5.03); Red Cell Distribution Width 12.5 % (13.2-15.2)
[2016-06-16] MEDS: TYLENOL PO PRN (09:29)
[2016-06-16] MEDS: K-PHOS NEUTRAL FEEDTUBE SCH ×4 (09:29→21:27)
[2016-06-16] MEDS: VIMPAT 100 MG in NACL 0.9% 100 ML IV SCH ×2 (09:30→21:00)
[2016-06-16] MEDS: LOVENOX SUB-Q SCH (09:30)
--- NOTE | 2016-06-16 09:40 | Progress Note ---
Assessment and Plan 1. Hypernatremia: Secondary to dehydration. Sodium level has improved. Continue D5W at 50 ml /hr and water flushes at 250 ml Q4hr. Monitor Sodium level. 2. FLORIAN: Renal function has improved. 3. Hypokalemia: On K-phos supplement. Monitor lytes. 4. Mild Rhabdomyolysis. 5. Pneumonia. 6. Sepsis. 7. Catatonia: Neuro following. 8. Dysphagia: S/p feeding tube. Subjective Date of service: 06/16/16 Principal diagnosis: Inability to swallow Objective - Vital Signs Vital signs: Vital Signs - 12hr 06/15/16 23:20 Temperature 99.2 F Pulse Rate [ 113 H Left] Respiratory 20 Rate Blood Pressure 104/58 [Left Arm] O2 Sat by Pulse 99 Oximetry - General Appearance General appearance: well-developed, frail, other (no distress) EENT: PERRL, mucous membranes dry, hearing intact Neck: supple Respiratory: Present: Clear to Ascultation Cardiology: regular, S1S2, no murmurs Gastrointestinal: normoactive bowel sounds, no tenderness, no distended Integumentary: other (right hand blisters resolving) Neurologic: other (able to speak) Musculoskeletal: other (no edema) Psychiatric: cooperative - Lab 06/16/16 05:45 06/15/16 08:18 Most recent lab results Calcium 8.2 mg/dL (8.4-10.2) L 06/15/16 08:18 Phosphorus 2.3 mg/dL (2.5-4.5) L 06/15/16 08:18 Magnesium 2.1 mg/dL (1.7-2.3) 06/15/16 08:18 Urine Sodium 26 mEq/L 06/08/16 10:13
--- NOTE | 2016-06-16 14:42 | Progress Note ---
Assessment and Plan Assessment and plan: Sepsis. Continue Levaquin IV. Blood cultures have been negative. Right lower lobe pneumonia. Aspiration precautions. Levaquin iv Acute kidney injury from ATN/sepsis. Resolved. Creatinine 0.5.. HypoKalemia. Replace and recheck in the morning Hypernatremia . This is now resolved. Sodium 139 today. Nephrology following. Continue iv fluids.. Rhabdomyolysis. Improving, creatinine kinase improved. Schizophrenia, catatonic. Psych following. Dysphagia. Discussed PEG tube placement Dr. Loaiza. He states he may place PEG tube if power of trial attorney of Patient signs consent. Patient is now fully awake alert. We will recommend a repeat swallow eval. DVT prophylaxis. Lovenox daily. Full code status History Interval history: Patient with sepsis, pneumonia, FLORIAN, No more fever, more alert, Started talking Hospitalist Physical - Physical exam Narrative exam: Gen appearance: Not in acute distress, HEENT: Normocephalic,atraumatic Neck : supple, no JVD Lungs: Clear to auscultation bilaterally, no crackles or wheezes. Heart : S1 and S2 regular, no murmurs rubs or gallop, Abdomen: soft nontender, nondistended, normal bowel sounds Extremities: No edema, no clubbing or cyanosis, Neuro : catatonic,awake,alert, oriented to person and place but not to time. Talks in short sentences. - Constitutional Vitals: Temp Pulse Resp BP Pulse Ox 97.5 F L 114 H 18 119/78 96 06/16/16 08:00 06/16/16 08:00 06/16/16 08:00 06/16/16 08:00 06/16/16 10:00 General appearance: Present: no acute distress, well-nourished Results - Labs CBC & Chem 7: 06/16/16 05:45 06/15/16 08:18 Labs: Laboratory Last Values WBC 16.0 K/mm3 (4.5-11.0) H 06/16/16 05:45 RBC 4.63 M/mm3 (3.65-5.03) 06/16/16 05:45 Hgb 13.7 gm/dl (10.1-14.3) 06/16/16 05:45 Hct 40.4 % (30.3-42.9) 06/16/16 05:45 MCV 87 fl (79-97) 06/16/16 05:45 MCH 30 pg (28-32) 06/16/16 05:45 MCHC 34 % (30-34) 06/16/16 05:45 RDW 12.5 % (13.2-15.2) L 06/16/16 05:45 Plt Count 241 K/mm3 (140-440) 06/16/16 05:45 Lymph % (Auto) 6.0 % (13.4-35.0) L 06/08/16 06:39 [place] % (Auto) 5.5 % (0.0-7.3) 06/08/16 06:39 Eos % (Auto) 0.2 % (0.0-4.3) 06/08/16 06:39 Baso % (Auto) 0.1 % (0.0-1.8) 06/08/16 06:39 Lymph # 0.6 K/mm3 (1.2-5.4) L 06/08/16 06:39 [place] # 0.6 K/mm3 (0.0-0.8) 06/08/16 06:39 Eos # 0.0 K/mm3 (0.0-0.4) 06/08/16 06:39 Baso # 0.0 K/mm3 (0.0-0.1) 06/08/16 06:39 Add Manual Diff Complete 06/06/16 21:56 Total Counted 100 06/06/16 21:56 Seg Neutrophils % 88.2 % (40.0-70.0) H 06/08/16 06:39 Seg Neuts % (Manual) 95.0 % (40.0-70.0) H 06/06/16 21:56 Band Neutrophils % 1.0 % 06/06/16 21:56 Lymphocytes % (Manual) 3.0 % (13.4-35.0) L 06/06/16 21:56 Reactive Lymphs % (Man) 0 % 06/06/16 21:56 Monocytes % (Manual) 1.0 % (0.0-7.3) 06/06/16 21:56 Eosinophils % (Manual) 0 % (0.0-4.3) 06/06/16 21:56 Basophils % (Manual) 0 % (0.0-1.8) 06/06/16 21:56 Metamyelocytes % 0 % 06/06/16 21:56 Myelocytes % 0 % 06/06/16 21:56 Promyelocytes % 0 % 06/06/16 21:56 Blast Cells % 0 % 06/06/16 21:56 Nucleated RBC % Not Reportable 06/06/16 21:56 Seg Neutrophils # 9.2 K/mm3 (1.8-7.7) H 06/08/16 06:39 Seg Neutrophils # Man 16.7 K/mm3 (1.8-7.7) H 06/06/16 21:56 Band Neutrophils # 0.2 K/mm3 06/06/16 21:56 Lymphocytes # (Manual) 0.5 K/mm3 (1.2-5.4) L 06/06/16 21:56 Abs React Lymphs (Man) 0.0 K/mm3 06/06/16 21:56 Monocytes # (Manual) 0.2 K/mm3 (0.0-0.8) 06/06/16 21:56 Eosinophils # (Manual) 0.0 K/mm3 (0.0-0.4) 06/06/16 21:56 Basophils # (Manual) 0.0 K/mm3 (0.0-0.1) 06/06/16 21:56 Metamyelocytes # 0.0 K/mm3 06/06/16 21:56 Myelocytes # 0.0 K/mm3 06/06/16 21:56 Promyelocytes # 0.0 K/mm3 06/06/16 21:56 Blast Cells # 0.0 K/mm3 06/06/16 21:56 WBC Morphology Not Reportable 06/06/16 21:56 Hypersegmented Neuts Not Reportable 06/06/16 21:56 Hyposegmented Neuts Not Reportable 06/06/16 21:56 Hypogranular Neuts Not Reportable 06/06/16 21:56 Smudge Cells Not Reportable 06/06/16 21:56 Toxic Granulation Not Reportable 06/06/16 21:56 Toxic Vacuolation Not Reportable 06/06/16 21:56 Dohle Bodies Not Reportable 06/06/16 21:56 Pelger-Huet Anomaly Not Reportable 06/06/16 21:56 Guerda Rods Not Reportable 06/06/16 21:56 Platelet Estimate Consistent w auto 06/06/16 21:56 Clumped Platelets Not Reportable 06/06/16 21:56 Plt Clumps, EDTA Not Reportable 06/06/16 21:56 Large Platelets Not Reportable 06/06/16 21:56 Giant Platelets Not Reportable 06/06/16 21:56 Platelet Satelliting Not Reportable 06/06/16 21:56 Plt Morphology Comment Not Reportable 06/06/16 21:56 RBC Morphology Normal 06/06/16 21:56 Dimorphic RBCs Not Reportable 06/06/16 21:56 Polychromasia Not Reportable 06/06/16 21:56 Hypochromasia Not Reportable 06/06/16 21:56 Poikilocytosis Not Reportable 06/06/16 21:56 Anisocytosis Not Reportable 06/06/16 21:56 Microcytosis Not Reportable 06/06/16 21:56 Macrocytosis Not Reportable 06/06/16 21:56 Spherocytes Not Reportable 06/06/16 21:56 Pappenheimer Bodies Not Reportable 06/06/16 21:56 Sickle Cells Not Reportable 06/06/16 21:56 Target Cells Not Reportable 06/06/16 21:56 Tear Drop Cells Not Reportable 06/06/16 21:56 Ovalocytes Not Reportable 06/06/16 21:56 Helmet Cells Not Reportable 06/06/16 21:56 [place] Bodies Not Reportable 06/06/16 21:56 [place] Rings Not Reportable 06/06/16 21:56 [place] Cells Not Reportable 06/06/16 21:56 Bite Cells Not Reportable 06/06/16 21:56 Crenated Cell Not Reportable 06/06/16 21:56 Elliptocytes Not Reportable 06/06/16 21:56 Acanthocytes (Spur) Not Reportable 06/06/16 21:56 Rouleaux Not Reportable 06/06/16 21:56 Hemoglobin C Crystals Not Reportable 06/06/16 21:56 Schistocytes Not Reportable 06/06/16 21:56 Malaria parasites Not Reportable 06/06/16 21:56 [place]ago Bodies Not Reportable 06/06/16 21:56 Hem Pathologist Commnt No 06/06/16 21:56 PT 15.9 Sec. (12.2-14.9) H 06/06/16 21:56 INR 1.28 (0.87-1.13) H 06/06/16 21:56 VBG pH 7.437 (7.320-7.420) H 06/06/16 21:56 Sodium 139 mmol/L (137-145) 06/15/16 08:18 Potassium 3.1 mmol/L (3.6-5.0) L 06/15/16 08:18 Chloride 97.0 mmol/L (98-107) L 06/15/16 08:18 Carbon Dioxide 31 mmol/L (22-30) H 06/15/16 08:18 Anion Gap 14 mmol/L 06/15/16 08:18 BUN 12 mg/dL (7-17) 06/15/16 08:18 Creatinine 0.5 mg/dL (0.7-1.2) L 06/15/16 08:18 Estimated GFR > 60 ml/min 06/15/16 08:18 BUN/Creatinine Ratio 24.00 % 06/15/16 08:18 Glucose 112 mg/dL (65-100) H 06/15/16 08:18 POC Glucose 109 (70-105) H 06/15/16 05:19 Osmolality 286 Mosm/kg 06/14/16 05:53 Lactic Acid 1.2 mmol/L (0.7-2.0) 06/11/16 14:32 Calcium 8.2 mg/dL (8.4-10.2) L 06/15/16 08:18 Phosphorus 2.3 mg/dL (2.5-4.5) L 06/15/16 08:18 Magnesium 2.1 mg/dL (1.7-2.3) 06/15/16 08:18 Total Bilirubin 0.9 mg/dL (0.1-1.2) 06/11/16 04:52 AST 34 units/L (5-40) 06/11/16 04:52 ALT 51 units/L (7-56) 06/11/16 04:52 Alkaline Phosphatase 48 units/L (35-129) 06/11/16 04:52 Ammonia 59.0 umol/L (25-60) 06/14/16 17:53 Total Creatine Kinase 194 units/L (30-135) H 06/12/16 06:14 Total Protein 6.8 g/dL (6.3-8.2) 06/11/16 04:52 Albumin 3.3 g/dL (3.9-5) L 06/11/16 04:52 Albumin/Globulin Ratio 0.9 % 06/11/16 04:52 Urine Color Yellow (Yellow) 06/13/16 02:15 Urine Turbidity Slightly-cloudy (Clear) 06/13/16 02:15 Urine pH 7.0 (5.0-7.0) 06/13/16 02:15 Ur Specific [place] 1.018 (1.003-1.030) 06/13/16 02:15 Urine Protein <15 mg/dl mg/dL (Negative) 06/13/16 02:15 Urine Glucose (UA) 50 mg/dL (Negative) 06/13/16 02:15 Urine Ketones Neg mg/dL (Negative) 06/13/16 02:15 Urine Blood Mod (Negative) 06/13/16 02:15 Urine Nitrite Neg (Negative) 06/13/16 02:15 Ur Reducing Substances Not Reportable 06/06/16 21:23 Urine Bilirubin Neg (Negative) 06/13/16 02:15 Urine Ictotest Not Reportable 06/06/16 21:23 Urine Urobilinogen < 2.0 mg/dL (<2.0) 06/13/16 02:15 Ur Leukocyte Esterase Tr (Negative) 06/13/16 02:15 Urine WBC (Auto) 5.0 /HPF (0.0-6.0) 06/13/16 02:15 Urine RBC (Auto) 39.0 /HPF (0.0-6.0) 06/13/16 02:15 U Epithel Cells (Auto) < 1.0 /HPF (0-13.0) 06/13/16 02:15 Amorphous Crystals Few 06/13/16 02:15 Urine Mucus 3+ /HPF 06/13/16 02:15 Urine Osmolality 795 Mosm/kg 06/08/16 10:13 Urine Sodium 26 mEq/L 06/08/16 10:13 Urine HCG, Qual Negative (Negative) 06/06/16 21:23 Urine Opiates Screen Presumptive negative 06/06/16 21:23 Urine Methadone Screen Presumptive negative 06/06/16 21:23 Ur Barbiturates Screen Presumptive negative 06/06/16 21:23 Ur Phencyclidine Scrn Presumptive negative 06/06/16 21:23 Ur Amphetamines Screen Presumptive negative 06/06/16 21:23 U Benzodiazepines Scrn Presumptive negative 06/06/16 21:23 [place] 0.1 mmol/L (0.0-1.2) 06/09/16 13:30 Urine Cocaine Screen Presumptive negative 06/06/16 21:23 U Marijuana (THC) Screen Presumptive negative 06/06/16 21:23 Drugs of Abuse Note Disclamer 06/06/16 21:23 Plasma/Serum Alcohol < 0.01 gm% (0-0.07) 06/06/16 21:56
[2016-06-16] MEDS: MORPHINE IV PRN (17:58)
[2016-06-16] MEDS: D5W 1,000 ML IV SCH (18:19)
[2016-06-16] MEDS: LEVAQUIN 750MG/150ML 750 MG/150 ML BAG IV SCH (19:13)
[2016-06-17] MEDS: FLAGYL 500 MG/100 ML 100 ML IV SCH ×3 (05:28→22:21)
[2016-06-17] MEDS: MORPHINE IV PRN ×3 (05:28→22:22)
[2016-06-17 06:34] LABS: Anion Gap 12 mmol/L; BUN/Creatinine Ratio 21.66; Blood Urea Nitrogen 13 mg/dL (7-17); Calcium 8.2 mg/dL (8.4-10.2); Carbon Dioxide 34 mmol/L (22-30); Chloride 98.1 mmol/L (98-107); Glucose 120 mg/dL (65-100); Magnesium 2.2 mg/dL (1.7-2.3); Phosphorous 3.3 mg/dL (2.5-4.5); Potassium 3.3 mmol/L (3.6-5.0); Sodium 141 mmol/L (137-145)
--- NOTE | 2016-06-17 09:50 | Progress Note ---
Assessment and Plan Assessment and plan: Sepsis. Continue Levaquin IV. Blood cultures have been negative. Right lower lobe pneumonia. Aspiration precautions. Continue Levaquin iv Acute kidney injury from ATN/sepsis. Resolved. Creatinine 0.5.. HypoKalemia. Potassium 3.3 today .Replace and recheck in the morning. This has been persistent we'll increase dose of potassium being given. Hypernatremia . This is now resolved. Sodium 139 today. Nephrology following. Continue iv fluids.. Rhabdomyolysis. Improving, creatinine kinase improved. Schizophrenia, catatonic. Psych following. Dysphagia. Discussed PEG tube placement Dr. Loaiza. He states he may place PEG tube if power of patent attorney of Patient signs consent. Patient is now fully awake alert. We will recommend a repeat swallow eval. DVT prophylaxis. Lovenox daily. Full code status History Interval history: Patient with sepsis, pneumonia, FLORIAN, No more fever, more alert, Started talking Hospitalist Physical - Physical exam Narrative exam: Gen appearance: Not in acute distress, HEENT: Normocephalic,atraumatic Neck : supple, no JVD Lungs: Clear to auscultation bilaterally, no crackles or wheezes. Heart : S1 and S2 regular, no murmurs rubs or gallop, Abdomen: soft nontender, nondistended, normal bowel sounds Extremities: No edema, no clubbing or cyanosis, Neuro :awake,alert, oriented to person and place but not to time. Talks in short sentences. Psych: calm skin:no rashes - Constitutional Vitals: Temp Pulse Resp BP Pulse Ox 98.7 F 91 H 18 110/67 100 06/16/16 23:00 06/16/16 23:00 06/16/16 23:00 06/16/16 23:00 06/17/16 08:57 General appearance: Present: no acute distress, well-nourished Results - Labs CBC & Chem 7: 06/16/16 05:45 06/17/16 05:21 Labs: Laboratory Last Values WBC 16.0 K/mm3 (4.5-11.0) H 06/16/16 05:45 RBC 4.63 M/mm3 (3.65-5.03) 06/16/16 05:45 Hgb 13.7 gm/dl (10.1-14.3) 06/16/16 05:45 Hct 40.4 % (30.3-42.9) 06/16/16 05:45 MCV 87 fl (79-97) 06/16/16 05:45 MCH 30 pg (28-32) 06/16/16 05:45 MCHC 34 % (30-34) 06/16/16 05:45 RDW 12.5 % (13.2-15.2) L 06/16/16 05:45 Plt Count 241 K/mm3 (140-440) 06/16/16 05:45 Lymph % (Auto) 6.0 % (13.4-35.0) L 06/08/16 06:39 [place] % (Auto) 5.5 % (0.0-7.3) 06/08/16 06:39 Eos % (Auto) 0.2 % (0.0-4.3) 06/08/16 06:39 Baso % (Auto) 0.1 % (0.0-1.8) 06/08/16 06:39 Lymph # 0.6 K/mm3 (1.2-5.4) L 06/08/16 06:39 [place] # 0.6 K/mm3 (0.0-0.8) 06/08/16 06:39 Eos # 0.0 K/mm3 (0.0-0.4) 06/08/16 06:39 Baso # 0.0 K/mm3 (0.0-0.1) 06/08/16 06:39 Add Manual Diff Complete 06/06/16 21:56 Total Counted 100 06/06/16 21:56 Seg Neutrophils % 88.2 % (40.0-70.0) H 06/08/16 06:39 Seg Neuts % (Manual) 95.0 % (40.0-70.0) H 06/06/16 21:56 Band Neutrophils % 1.0 % 06/06/16 21:56 Lymphocytes % (Manual) 3.0 % (13.4-35.0) L 06/06/16 21:56 Reactive Lymphs % (Man) 0 % 06/06/16 21:56 Monocytes % (Manual) 1.0 % (0.0-7.3) 06/06/16 21:56 Eosinophils % (Manual) 0 % (0.0-4.3) 06/06/16 21:56 Basophils % (Manual) 0 % (0.0-1.8) 06/06/16 21:56 Metamyelocytes % 0 % 06/06/16 21:56 Myelocytes % 0 % 06/06/16 21:56 Promyelocytes % 0 % 06/06/16 21:56 Blast Cells % 0 % 06/06/16 21:56 Nucleated RBC % Not Reportable 06/06/16 21:56 Seg Neutrophils # 9.2 K/mm3 (1.8-7.7) H 06/08/16 06:39 Seg Neutrophils # Man 16.7 K/mm3 (1.8-7.7) H 06/06/16 21:56 Band Neutrophils # 0.2 K/mm3 06/06/16 21:56 Lymphocytes # (Manual) 0.5 K/mm3 (1.2-5.4) L 06/06/16 21:56 Abs React Lymphs (Man) 0.0 K/mm3 06/06/16 21:56 Monocytes # (Manual) 0.2 K/mm3 (0.0-0.8) 06/06/16 21:56 Eosinophils # (Manual) 0.0 K/mm3 (0.0-0.4) 06/06/16 21:56 Basophils # (Manual) 0.0 K/mm3 (0.0-0.1) 06/06/16 21:56 Metamyelocytes # 0.0 K/mm3 06/06/16 21:56 Myelocytes # 0.0 K/mm3 06/06/16 21:56 Promyelocytes # 0.0 K/mm3 06/06/16 21:56 Blast Cells # 0.0 K/mm3 06/06/16 21:56 WBC Morphology Not Reportable 06/06/16 21:56 Hypersegmented Neuts Not Reportable 06/06/16 21:56 Hyposegmented Neuts Not Reportable 06/06/16 21:56 Hypogranular Neuts Not Reportable 06/06/16 21:56 Smudge Cells Not Reportable 06/06/16 21:56 Toxic Granulation Not Reportable 06/06/16 21:56 Toxic Vacuolation Not Reportable 06/06/16 21:56 Dohle Bodies Not Reportable 06/06/16 21:56 Pelger-Huet Anomaly Not Reportable 06/06/16 21:56 Guerda Rods Not Reportable 06/06/16 21:56 Platelet Estimate Consistent w auto 06/06/16 21:56 Clumped Platelets Not Reportable 06/06/16 21:56 Plt Clumps, EDTA Not Reportable 06/06/16 21:56 Large Platelets Not Reportable 06/06/16 21:56 Giant Platelets Not Reportable 06/06/16 21:56 Platelet Satelliting Not Reportable 06/06/16 21:56 Plt Morphology Comment Not Reportable 06/06/16 21:56 RBC Morphology Normal 06/06/16 21:56 Dimorphic RBCs Not Reportable 06/06/16 21:56 Polychromasia Not Reportable 06/06/16 21:56 Hypochromasia Not Reportable 06/06/16 21:56 Poikilocytosis Not Reportable 06/06/16 21:56 Anisocytosis Not Reportable 06/06/16 21:56 Microcytosis Not Reportable 06/06/16 21:56 Macrocytosis Not Reportable 06/06/16 21:56 Spherocytes Not Reportable 06/06/16 21:56 Pappenheimer Bodies Not Reportable 06/06/16 21:56 Sickle Cells Not Reportable 06/06/16 21:56 Target Cells Not Reportable 06/06/16 21:56 Tear Drop Cells Not Reportable 06/06/16 21:56 Ovalocytes Not Reportable 06/06/16 21:56 Helmet Cells Not Reportable 06/06/16 21:56 [place] Bodies Not Reportable 06/06/16 21:56 [place] Rings Not Reportable 06/06/16 21:56 [place] Cells Not Reportable 06/06/16 21:56 Bite Cells Not Reportable 06/06/16 21:56 Crenated Cell Not Reportable 06/06/16 21:56 Elliptocytes Not Reportable 06/06/16 21:56 Acanthocytes (Spur) Not Reportable 06/06/16 21:56 Rouleaux Not Reportable 06/06/16 21:56 Hemoglobin C Crystals Not Reportable 06/06/16 21:56 Schistocytes Not Reportable 06/06/16 21:56 Malaria parasites Not Reportable 06/06/16 21:56 [place]ago Bodies Not Reportable 06/06/16 21:56 Hem Pathologist Commnt No 06/06/16 21:56 PT 15.9 Sec. (12.2-14.9) H 06/06/16 21:56 INR 1.28 (0.87-1.13) H 06/06/16 21:56 VBG pH 7.437 (7.320-7.420) H 06/06/16 21:56 Sodium 141 mmol/L (137-145) 06/17/16 05:21 Potassium 3.3 mmol/L (3.6-5.0) L 06/17/16 05:21 Chloride 98.1 mmol/L (98-107) 06/17/16 05:21 Carbon Dioxide 34 mmol/L (22-30) H 06/17/16 05:21 Anion Gap 12 mmol/L 06/17/16 05:21 BUN 13 mg/dL (7-17) 06/17/16 05:21 Creatinine 0.6 mg/dL (0.7-1.2) L 06/17/16 05:21 Estimated GFR > 60 ml/min 06/17/16 05:21 BUN/Creatinine Ratio 21.66 % 06/17/16 05:21 Glucose 120 mg/dL (65-100) H 06/17/16 05:21 POC Glucose 88 (70-105) 06/16/16 17:33 Osmolality 286 Mosm/kg 06/14/16 05:53 Lactic Acid 1.2 mmol/L (0.7-2.0) 06/11/16 14:32 Calcium 8.2 mg/dL (8.4-10.2) L 06/17/16 05:21 Phosphorus 3.3 mg/dL (2.5-4.5) 06/17/16 05:21 Magnesium 2.2 mg/dL (1.7-2.3) 06/17/16 05:21 Total Bilirubin 0.9 mg/dL (0.1-1.2) 06/11/16 04:52 AST 34 units/L (5-40) 06/11/16 04:52 ALT 51 units/L (7-56) 06/11/16 04:52 Alkaline Phosphatase 48 units/L (35-129) 06/11/16 04:52 Ammonia 59.0 umol/L (25-60) 06/14/16 17:53 Total Creatine Kinase 194 units/L (30-135) H 06/12/16 06:14 Total Protein 6.8 g/dL (6.3-8.2) 06/11/16 04:52 Albumin 3.3 g/dL (3.9-5) L 06/11/16 04:52 Albumin/Globulin Ratio 0.9 % 06/11/16 04:52 Urine Color Yellow (Yellow) 06/13/16 02:15 Urine Turbidity Slightly-cloudy (Clear) 06/13/16 02:15 Urine pH 7.0 (5.0-7.0) 06/13/16 02:15 Ur Specific [place] 1.018 (1.003-1.030) 06/13/16 02:15 Urine Protein <15 mg/dl mg/dL (Negative) 06/13/16 02:15 Urine Glucose (UA) 50 mg/dL (Negative) 06/13/16 02:15 Urine Ketones Neg mg/dL (Negative) 06/13/16 02:15 Urine Blood Mod (Negative) 06/13/16 02:15 Urine Nitrite Neg (Negative) 06/13/16 02:15 Ur Reducing Substances Not Reportable 06/06/16 21:23 Urine Bilirubin Neg (Negative) 06/13/16 02:15 Urine Ictotest Not Reportable 06/06/16 21:23 Urine Urobilinogen < 2.0 mg/dL (<2.0) 06/13/16 02:15 Ur Leukocyte Esterase Tr (Negative) 06/13/16 02:15 Urine WBC (Auto) 5.0 /HPF (0.0-6.0) 06/13/16 02:15 Urine RBC (Auto) 39.0 /HPF (0.0-6.0) 06/13/16 02:15 U Epithel Cells (Auto) < 1.0 /HPF (0-13.0) 06/13/16 02:15 Amorphous Crystals Few 06/13/16 02:15 Urine Mucus 3+ /HPF 06/13/16 02:15 Urine Osmolality 795 Mosm/kg 06/08/16 10:13 Urine Sodium 26 mEq/L 06/08/16 10:13 Urine HCG, Qual Negative (Negative) 06/06/16 21:23 Urine Opiates Screen Presumptive negative 06/06/16 21:23 Urine Methadone Screen Presumptive negative 06/06/16 21:23 Ur Barbiturates Screen Presumptive negative 06/06/16 21:23 Ur Phencyclidine Scrn Presumptive negative 06/06/16 21:23 Ur Amphetamines Screen Presumptive negative 06/06/16 21:23 U Benzodiazepines Scrn Presumptive negative 06/06/16 21:23 [place] 0.1 mmol/L (0.0-1.2) 06/09/16 13:30 Urine Cocaine Screen Presumptive negative 06/06/16 21:23 U Marijuana (THC) Screen Presumptive negative 06/06/16 21:23 Drugs of Abuse Note Disclamer 06/06/16 21:23 Plasma/Serum Alcohol < 0.01 gm% (0-0.07) 06/06/16 21:56
[2016-06-17] MEDS: VIMPAT 100 MG in NACL 0.9% 100 ML IV SCH (10:15)
[2016-06-17] MEDS: K-PHOS NEUTRAL FEEDTUBE SCH ×4 (10:45→22:22)
[2016-06-17] MEDS: VIMPAT PO SCH ×2 (10:45→22:22)
[2016-06-17] MEDS: LOVENOX SUB-Q SCH (10:45)
[2016-06-17] MEDS: POTASSIUM CHLORIDE FEEDTUBE SCH ×2 (10:53→15:37)
--- NOTE | 2016-06-17 11:28 | Progress Note ---
Assessment and Plan 1. Hypernatremia: Secondary to dehydration. Sodium level has improved. Continue water flushes at 250 ml Q4hr. Stop D5W. Monitor Sodium level. 2. FLORIAN: Renal function has improved. 3. Hypokalemia: On K-phos supplement. Monitor lytes. 4. Mild Rhabdomyolysis. 5. Pneumonia. 6. Sepsis. 7. Catatonia: Neuro following. 8. Dysphagia: S/p feeding tube. Will follow labs. Subjective Date of service: 06/17/16 Principal diagnosis: Inability to swallow Objective - Vital Signs Vital signs: Vital Signs - 12hr 06/17/16 06/17/16 08:57 09:56 Temperature 97.8 F Pulse Rate [ 85 Left Brachial] Respiratory 16 Rate Blood Pressure 95/54 [Left Arm] O2 Sat by Pulse 100 96 Oximetry - General Appearance General appearance: well-developed, other (no distress, feeding tube noted) EENT: PERRL, mucous membranes moist, hearing intact Neck: no carotid bruit, supple Respiratory: Present: Clear to Ascultation Cardiology: regular, S1S2, no murmurs Gastrointestinal: normoactive bowel sounds, no tenderness, no distended Integumentary: other (right hand blisters resolving) Neurologic: other (able to speak, hard to follow conversation, barely able to move the extremities) Musculoskeletal: other (no edema) Psychiatric: cooperative - Lab 06/16/16 05:45 06/17/16 05:21 Most recent lab results Calcium 8.2 mg/dL (8.4-10.2) L 06/17/16 05:21 Phosphorus 3.3 mg/dL (2.5-4.5) 06/17/16 05:21 Magnesium 2.2 mg/dL (1.7-2.3) 06/17/16 05:21 Urine Sodium 26 mEq/L 06/08/16 10:13
[2016-06-17] MEDS ORDERED: POTASSIUM CHLORIDE FEEDTUBE SCH (16:00)
[2016-06-17] MEDS: LEVAQUIN 750MG/150ML 750 MG/150 ML BAG IV SCH (17:46)
[2016-06-17] MEDS: D5W 1,000 ML IV SCH (17:52)
[2016-06-18] MEDS: MORPHINE IV PRN (06:01)
[2016-06-18] MEDS: FLAGYL 500 MG/100 ML 100 ML IV SCH ×3 (06:02→22:38)
[2016-06-18 06:44] LABS: Hematocrit 38.8 % (30.3-42.9); Mean Corpuscular HGB Conc 33 % (30-34); Mean Corpuscular Hemoglobin 30 pg (28-32); Mean Corpuscular Volume 89 fl (79-97); Platelet Count 265 K/mm3 (140-440); Red Blood Count 4.36 M/mm3 (3.65-5.03); Red Cell Distribution Width 12.8 % (13.2-15.2)
[2016-06-18 07:01] LABS: BUN/Creatinine Ratio 18.33; Blood Urea Nitrogen 11 mg/dL (7-17); Calcium 8.6 mg/dL (8.4-10.2); Carbon Dioxide 31 mmol/L (22-30); Chloride 95.6 mmol/L (98-107); Glucose 120 mg/dL (65-100); Potassium 3.9 mmol/L (3.6-5.0); Sodium 138 mmol/L (137-145)
[2016-06-18 07:15] LABS: Anion Gap 15 mmol/L
[2016-06-18] MEDS: K-PHOS NEUTRAL FEEDTUBE SCH ×4 (10:23→22:39)
[2016-06-18] MEDS: VIMPAT PO SCH ×2 (10:23→22:39)
[2016-06-18] MEDS: LOVENOX SUB-Q SCH (10:23)
--- NOTE | 2016-06-18 12:29 | Progress Note ---
Assessment and Plan Assessment and plan: Sepsis. Continue Levaquin IV. Blood cultures have been negative. Right lower lobe pneumonia. Aspiration precautions. Continue Levaquin iv Acute kidney injury from ATN/sepsis. Resolved. Creatinine 0.6 HypoKalemia. Resolved. Potassium 3.9 today. Hypernatremia . This is now resolved. Sodium 138 today. Nephrology following. Continue iv fluids.. Rhabdomyolysis. Improving, creatinine kinase improved. Schizophrenia, catatonic. Psych following. Dysphagia. Discussed PEG tube placement Dr. Loaiza. He states he may place PEG tube if power of document review attorney of Patient signs consent. Patient is now fully awake alert. I discussed with Nurse to request speech therapy to repeat swallow evaluation since she may be able to swallow now that she is fully awake alert and oriented. DVT prophylaxis. Lovenox daily. Full code status History Interval history: Patient with sepsis, pneumonia, [place], No more fever, more alert, Now talking Hospitalist Physical - Physical exam Narrative exam: Gen appearance: Not in acute distress, HEENT: Normocephalic,atraumatic Neck : supple, no JVD Lungs: Clear to auscultation bilaterally, no crackles or wheezes. Heart : S1 and S2 regular, no murmurs rubs or gallop, Abdomen: soft nontender, nondistended, normal bowel sounds Extremities: No edema, no clubbing or cyanosis, Neuro :awake,alert, oriented to person and place but not to time. Talks in short sentences.moves all ext Psych: calm skin:no rashes - Constitutional Vitals: Temp Pulse Resp BP Pulse Ox 98.3 F 96 H 18 109/57 98 06/18/16 08:14 06/18/16 08:14 06/18/16 08:14 06/18/16 08:14 06/18/16 09:37 General appearance: Present: no acute distress, well-nourished Results - Labs CBC & Chem 7: 06/18/16 05:42 06/18/16 05:42 Labs: Laboratory Last Values WBC 13.0 K/mm3 (4.5-11.0) H 06/18/16 05:42 RBC 4.36 M/mm3 (3.65-5.03) 06/18/16 05:42 Hgb 13.0 gm/dl (10.1-14.3) 06/18/16 05:42 Hct 38.8 % (30.3-42.9) 06/18/16 05:42 MCV 89 fl (79-97) 06/18/16 05:42 MCH 30 pg (28-32) 06/18/16 05:42 MCHC 33 % (30-34) 06/18/16 05:42 RDW 12.8 % (13.2-15.2) L 06/18/16 05:42 Plt Count 265 K/mm3 (140-440) 06/18/16 05:42 Lymph % (Auto) 6.0 % (13.4-35.0) L 06/08/16 06:39 [place] % (Auto) 5.5 % (0.0-7.3) 06/08/16 06:39 Eos % (Auto) 0.2 % (0.0-4.3) 06/08/16 06:39 Baso % (Auto) 0.1 % (0.0-1.8) 06/08/16 06:39 Lymph # 0.6 K/mm3 (1.2-5.4) L 06/08/16 06:39 [place] # 0.6 K/mm3 (0.0-0.8) 06/08/16 06:39 Eos # 0.0 K/mm3 (0.0-0.4) 06/08/16 06:39 Baso # 0.0 K/mm3 (0.0-0.1) 06/08/16 06:39 Add Manual Diff Complete 06/06/16 21:56 Total Counted 100 06/06/16 21:56 Seg Neutrophils % 88.2 % (40.0-70.0) H 06/08/16 06:39 Seg Neuts % (Manual) 95.0 % (40.0-70.0) H 06/06/16 21:56 Band Neutrophils % 1.0 % 06/06/16 21:56 Lymphocytes % (Manual) 3.0 % (13.4-35.0) L 06/06/16 21:56 Reactive Lymphs % (Man) 0 % 06/06/16 21:56 Monocytes % (Manual) 1.0 % (0.0-7.3) 06/06/16 21:56 Eosinophils % (Manual) 0 % (0.0-4.3) 06/06/16 21:56 Basophils % (Manual) 0 % (0.0-1.8) 06/06/16 21:56 Metamyelocytes % 0 % 06/06/16 21:56 Myelocytes % 0 % 06/06/16 21:56 Promyelocytes % 0 % 06/06/16 21:56 Blast Cells % 0 % 06/06/16 21:56 Nucleated RBC % Not Reportable 06/06/16 21:56 Seg Neutrophils # 9.2 K/mm3 (1.8-7.7) H 06/08/16 06:39 Seg Neutrophils # Man 16.7 K/mm3 (1.8-7.7) H 06/06/16 21:56 Band Neutrophils # 0.2 K/mm3 06/06/16 21:56 Lymphocytes # (Manual) 0.5 K/mm3 (1.2-5.4) L 06/06/16 21:56 Abs React Lymphs (Man) 0.0 K/mm3 06/06/16 21:56 Monocytes # (Manual) 0.2 K/mm3 (0.0-0.8) 06/06/16 21:56 Eosinophils # (Manual) 0.0 K/mm3 (0.0-0.4) 06/06/16 21:56 Basophils # (Manual) 0.0 K/mm3 (0.0-0.1) 06/06/16 21:56 Metamyelocytes # 0.0 K/mm3 06/06/16 21:56 Myelocytes # 0.0 K/mm3 06/06/16 21:56 Promyelocytes # 0.0 K/mm3 06/06/16 21:56 Blast Cells # 0.0 K/mm3 06/06/16 21:56 WBC Morphology Not Reportable 06/06/16 21:56 Hypersegmented Neuts Not Reportable 06/06/16 21:56 Hyposegmented Neuts Not Reportable 06/06/16 21:56 Hypogranular Neuts Not Reportable 06/06/16 21:56 Smudge Cells Not Reportable 06/06/16 21:56 Toxic Granulation Not Reportable 06/06/16 21:56 Toxic Vacuolation Not Reportable 06/06/16 21:56 Dohle Bodies Not Reportable 06/06/16 21:56 Pelger-Huet Anomaly Not Reportable 06/06/16 21:56 Guerda Rods Not Reportable 06/06/16 21:56 Platelet Estimate Consistent w auto 06/06/16 21:56 Clumped Platelets Not Reportable 06/06/16 21:56 Plt Clumps, EDTA Not Reportable 06/06/16 21:56 Large Platelets Not Reportable 06/06/16 21:56 Giant Platelets Not Reportable 06/06/16 21:56 Platelet Satelliting Not Reportable 06/06/16 21:56 Plt Morphology Comment Not Reportable 06/06/16 21:56 RBC Morphology Normal 06/06/16 21:56 Dimorphic RBCs Not Reportable 06/06/16 21:56 Polychromasia Not Reportable 06/06/16 21:56 Hypochromasia Not Reportable 06/06/16 21:56 Poikilocytosis Not Reportable 06/06/16 21:56 Anisocytosis Not Reportable 06/06/16 21:56 Microcytosis Not Reportable 06/06/16 21:56 Macrocytosis Not Reportable 06/06/16 21:56 Spherocytes Not Reportable 06/06/16 21:56 Pappenheimer Bodies Not Reportable 06/06/16 21:56 Sickle Cells Not Reportable 06/06/16 21:56 Target Cells Not Reportable 06/06/16 21:56 Tear Drop Cells Not Reportable 06/06/16 21:56 Ovalocytes Not Reportable 06/06/16 21:56 Helmet Cells Not Reportable 06/06/16 21:56 [place] Bodies Not Reportable 06/06/16 21:56 [place] Rings Not Reportable 06/06/16 21:56 [place] Cells Not Reportable 06/06/16 21:56 Bite Cells Not Reportable 06/06/16 21:56 Crenated Cell Not Reportable 06/06/16 21:56 Elliptocytes Not Reportable 06/06/16 21:56 Acanthocytes (Spur) Not Reportable 06/06/16 21:56 Rouleaux Not Reportable 06/06/16 21:56 Hemoglobin C Crystals Not Reportable 06/06/16 21:56 Schistocytes Not Reportable 06/06/16 21:56 Malaria parasites Not Reportable 06/06/16 21:56 [place] Bodies Not Reportable 06/06/16 21:56 Hem Pathologist Commnt No 06/06/16 21:56 PT 15.9 Sec. (12.2-14.9) H 06/06/16 21:56 INR 1.28 (0.87-1.13) H 06/06/16 21:56 VBG pH 7.437 (7.320-7.420) H 06/06/16 21:56 Sodium 138 mmol/L (137-145) 06/18/16 05:42 Potassium 3.9 mmol/L (3.6-5.0) 06/18/16 05:42 Chloride 95.6 mmol/L (98-107) L 06/18/16 05:42 Carbon Dioxide 31 mmol/L (22-30) H 06/18/16 05:42 Anion Gap 15 mmol/L 06/18/16 05:42 BUN 11 mg/dL (7-17) 06/18/16 05:42 Creatinine 0.6 mg/dL (0.7-1.2) L 06/18/16 05:42 Estimated GFR > 60 ml/min 06/18/16 05:42 BUN/Creatinine Ratio 18.33 % 06/18/16 05:42 Glucose 120 mg/dL (65-100) H 06/18/16 05:42 POC Glucose 88 (70-105) 06/16/16 17:33 Osmolality 286 Mosm/kg 06/14/16 05:53 Lactic Acid 1.2 mmol/L (0.7-2.0) 06/11/16 14:32 Calcium 8.6 mg/dL (8.4-10.2) 06/18/16 05:42 Phosphorus 3.3 mg/dL (2.5-4.5) 06/17/16 05:21 Magnesium 2.2 mg/dL (1.7-2.3) 06/17/16 05:21 Total Bilirubin 0.9 mg/dL (0.1-1.2) 06/11/16 04:52 AST 34 units/L (5-40) 06/11/16 04:52 ALT 51 units/L (7-56) 06/11/16 04:52 Alkaline Phosphatase 48 units/L (35-129) 06/11/16 04:52 Ammonia 59.0 umol/L (25-60) 06/14/16 17:53 Total Creatine Kinase 194 units/L (30-135) H 06/12/16 06:14 Total Protein 6.8 g/dL (6.3-8.2) 06/11/16 04:52 Albumin 3.3 g/dL (3.9-5) L 06/11/16 04:52 Albumin/Globulin Ratio 0.9 % 06/11/16 04:52 Urine Color Yellow (Yellow) 06/13/16 02:15 Urine Turbidity Slightly-cloudy (Clear) 06/13/16 02:15 Urine pH 7.0 (5.0-7.0) 06/13/16 02:15 Ur Specific [place] 1.018 (1.003-1.030) 06/13/16 02:15 Urine Protein <15 mg/dl mg/dL (Negative) 06/13/16 02:15 Urine Glucose (UA) 50 mg/dL (Negative) 06/13/16 02:15 Urine Ketones Neg mg/dL (Negative) 06/13/16 02:15 Urine Blood Mod (Negative) 06/13/16 02:15 Urine Nitrite Neg (Negative) 06/13/16 02:15 Ur Reducing Substances Not Reportable 06/06/16 21:23 Urine Bilirubin Neg (Negative) 06/13/16 02:15 Urine Ictotest Not Reportable 06/06/16 21:23 Urine Urobilinogen < 2.0 mg/dL (<2.0) 06/13/16 02:15 Ur Leukocyte Esterase Tr (Negative) 06/13/16 02:15 Urine WBC (Auto) 5.0 /HPF (0.0-6.0) 06/13/16 02:15 Urine RBC (Auto) 39.0 /HPF (0.0-6.0) 06/13/16 02:15 U Epithel Cells (Auto) < 1.0 /HPF (0-13.0) 06/13/16 02:15 Amorphous Crystals Few 06/13/16 02:15 Urine Mucus 3+ /HPF 06/13/16 02:15 Urine Osmolality 795 Mosm/kg 06/08/16 10:13 Urine Sodium 26 mEq/L 06/08/16 10:13 Urine HCG, Qual Negative (Negative) 06/06/16 21:23 Urine Opiates Screen Presumptive negative 06/06/16 21:23 Urine Methadone Screen Presumptive negative 06/06/16 21:23 Ur Barbiturates Screen Presumptive negative 06/06/16 21:23 Ur Phencyclidine Scrn Presumptive negative 06/06/16 21:23 Ur Amphetamines Screen Presumptive negative 06/06/16 21:23 U Benzodiazepines Scrn Presumptive negative 06/06/16 21:23 [place] 0.1 mmol/L (0.0-1.2) 06/09/16 13:30 Urine Cocaine Screen Presumptive negative 06/06/16 21:23 U Marijuana (THC) Screen Presumptive negative 06/06/16 21:23 Drugs of Abuse Note Disclamer 06/06/16 21:23 Plasma/Serum Alcohol < 0.01 gm% (0-0.07) 06/06/16 21:56
[2016-06-18] MEDS: LEVAQUIN 750MG/150ML 750 MG/150 ML BAG IV SCH (18:30)
[2016-06-19] MEDS: FLAGYL 500 MG/100 ML 100 ML IV SCH ×3 (06:05→21:23)
[2016-06-19 09:48] LABS: Anion Gap 14 mmol/L; BUN/Creatinine Ratio 21.42; Blood Urea Nitrogen 15 mg/dL (7-17); Calcium 8.5 mg/dL (8.4-10.2); Carbon Dioxide 30 mmol/L (22-30); Glucose 132 mg/dL (65-100); Sodium 140 mmol/L (137-145)
[2016-06-19] MEDS: VIMPAT PO SCH ×2 (12:08→21:23)
[2016-06-19] MEDS: K-PHOS NEUTRAL FEEDTUBE SCH ×4 (12:08→21:23)
[2016-06-19] MEDS: TYLENOL PR PRN (12:09)
[2016-06-19] MEDS: LOVENOX SUB-Q SCH (12:15)
--- NOTE | 2016-06-19 13:36 | Fluoroscopy Report ---
MODIFIED BARIUM SWALLOW History: Dysphagia. Findings: Fluoroscopy was provided by the radiologist for speech therapy to assess the swallowing mechanism. Please refer to the formal report by speech therapy. Impression: Successful modified barium swallow.
--- NOTE | 2016-06-19 14:25 | Progress Note ---
Assessment and Plan Assessment and plan: Sepsis. Continue Levaquin IV. Blood cultures have been negative. Right lower lobe pneumonia. Aspiration precautions. Continue Levaquin iv Acute kidney injury from ATN/sepsis. Resolved. HypoKalemia. Resolved. Potassium 4.0 today. Hypernatremia . This is now resolved. Sodium 138 today. Nephrology following. Continue iv fluids.. Rhabdomyolysis. Improving, creatinine kinase improved. Schizophrenia, catatonic. Improved. Psych following. Dysphagia. Patient is now fully awake alert. Modified Barium swallow done today. Pureed diet recommended. DVT prophylaxis. Lovenox daily. Full code status History Interval history: Patient with sepsis, pneumonia, [place], No more fever, more alert, Now talking Hospitalist Physical - Physical exam Narrative exam: Gen appearance: Not in acute distress, HEENT: Normocephalic,atraumatic Neck : supple, no JVD Lungs: Clear to auscultation bilaterally, no crackles or wheezes. Heart : S1 and S2 regular, no murmurs rubs or gallop, Abdomen: soft nontender, nondistended, normal bowel sounds Extremities: No edema, no clubbing or cyanosis, Neuro :awake,alert, oriented to person and place but not to time. Talks in short sentences.moves all ext Psych: calm skin:no rashes - Constitutional Vitals: Temp Pulse Resp BP Pulse Ox 98.9 F 111 H 18 120/76 94 06/19/16 08:00 06/19/16 08:00 06/19/16 08:00 06/19/16 08:00 06/19/16 10:00 General appearance: Present: no acute distress, well-nourished Results - Labs CBC & Chem 7: 06/18/16 05:42 06/19/16 08:27 Labs: Laboratory Last Values WBC 13.0 K/mm3 (4.5-11.0) H 06/18/16 05:42 RBC 4.36 M/mm3 (3.65-5.03) 06/18/16 05:42 Hgb 13.0 gm/dl (10.1-14.3) 06/18/16 05:42 Hct 38.8 % (30.3-42.9) 06/18/16 05:42 MCV 89 fl (79-97) 06/18/16 05:42 MCH 30 pg (28-32) 06/18/16 05:42 MCHC 33 % (30-34) 06/18/16 05:42 RDW 12.8 % (13.2-15.2) L 06/18/16 05:42 Plt Count 265 K/mm3 (140-440) 06/18/16 05:42 Lymph % (Auto) 6.0 % (13.4-35.0) L 06/08/16 06:39 [place] % (Auto) 5.5 % (0.0-7.3) 06/08/16 06:39 Eos % (Auto) 0.2 % (0.0-4.3) 06/08/16 06:39 Baso % (Auto) 0.1 % (0.0-1.8) 06/08/16 06:39 Lymph # 0.6 K/mm3 (1.2-5.4) L 06/08/16 06:39 [place] # 0.6 K/mm3 (0.0-0.8) 06/08/16 06:39 Eos # 0.0 K/mm3 (0.0-0.4) 06/08/16 06:39 Baso # 0.0 K/mm3 (0.0-0.1) 06/08/16 06:39 Add Manual Diff Complete 06/06/16 21:56 Total Counted 100 06/06/16 21:56 Seg Neutrophils % 88.2 % (40.0-70.0) H 06/08/16 06:39 Seg Neuts % (Manual) 95.0 % (40.0-70.0) H 06/06/16 21:56 Band Neutrophils % 1.0 % 06/06/16 21:56 Lymphocytes % (Manual) 3.0 % (13.4-35.0) L 06/06/16 21:56 Reactive Lymphs % (Man) 0 % 06/06/16 21:56 Monocytes % (Manual) 1.0 % (0.0-7.3) 06/06/16 21:56 Eosinophils % (Manual) 0 % (0.0-4.3) 06/06/16 21:56 Basophils % (Manual) 0 % (0.0-1.8) 06/06/16 21:56 Metamyelocytes % 0 % 06/06/16 21:56 Myelocytes % 0 % 06/06/16 21:56 Promyelocytes % 0 % 06/06/16 21:56 Blast Cells % 0 % 06/06/16 21:56 Nucleated RBC % Not Reportable 06/06/16 21:56 Seg Neutrophils # 9.2 K/mm3 (1.8-7.7) H 06/08/16 06:39 Seg Neutrophils # Man 16.7 K/mm3 (1.8-7.7) H 06/06/16 21:56 Band Neutrophils # 0.2 K/mm3 06/06/16 21:56 Lymphocytes # (Manual) 0.5 K/mm3 (1.2-5.4) L 06/06/16 21:56 Abs React Lymphs (Man) 0.0 K/mm3 06/06/16 21:56 Monocytes # (Manual) 0.2 K/mm3 (0.0-0.8) 06/06/16 21:56 Eosinophils # (Manual) 0.0 K/mm3 (0.0-0.4) 06/06/16 21:56 Basophils # (Manual) 0.0 K/mm3 (0.0-0.1) 06/06/16 21:56 Metamyelocytes # 0.0 K/mm3 06/06/16 21:56 Myelocytes # 0.0 K/mm3 06/06/16 21:56 Promyelocytes # 0.0 K/mm3 06/06/16 21:56 Blast Cells # 0.0 K/mm3 06/06/16 21:56 WBC Morphology Not Reportable 06/06/16 21:56 Hypersegmented Neuts Not Reportable 06/06/16 21:56 Hyposegmented Neuts Not Reportable 06/06/16 21:56 Hypogranular Neuts Not Reportable 06/06/16 21:56 Smudge Cells Not Reportable 06/06/16 21:56 Toxic Granulation Not Reportable 06/06/16 21:56 Toxic Vacuolation Not Reportable 06/06/16 21:56 Dohle Bodies Not Reportable 06/06/16 21:56 Pel[place]-Huet Anomaly Not Reportable 06/06/16 21:56 Guerda Rods Not Reportable 06/06/16 21:56 Platelet Estimate Consistent w auto 06/06/16 21:56 Clumped Platelets Not Reportable 06/06/16 21:56 Plt Clumps, EDTA Not Reportable 06/06/16 21:56 Large Platelets Not Reportable 06/06/16 21:56 Giant Platelets Not Reportable 06/06/16 21:56 Platelet Satelliting Not Reportable 06/06/16 21:56 Plt Morphology Comment Not Reportable 06/06/16 21:56 RBC Morphology Normal 06/06/16 21:56 Dimorphic RBCs Not Reportable 06/06/16 21:56 Polychromasia Not Reportable 06/06/16 21:56 Hypochromasia Not Reportable 06/06/16 21:56 Poikilocytosis Not Reportable 06/06/16 21:56 Anisocytosis Not Reportable 06/06/16 21:56 Microcytosis Not Reportable 06/06/16 21:56 Macrocytosis Not Reportable 06/06/16 21:56 Spherocytes Not Reportable 06/06/16 21:56 Pappenheimer Bodies Not Reportable 06/06/16 21:56 Sickle Cells Not Reportable 06/06/16 21:56 Target Cells Not Reportable 06/06/16 21:56 Tear Drop Cells Not Reportable 06/06/16 21:56 Ovalocytes Not Reportable 06/06/16 21:56 Helmet Cells Not Reportable 06/06/16 21:56 [place] Bodies Not Reportable 06/06/16 21:56 [place] Rings Not Reportable 06/06/16 21:56 [place] Cells Not Reportable 06/06/16 21:56 Bite Cells Not Reportable 06/06/16 21:56 Crenated Cell Not Reportable 06/06/16 21:56 Elliptocytes Not Reportable 06/06/16 21:56 Acanthocytes (Spur) Not Reportable 06/06/16 21:56 Rouleaux Not Reportable 06/06/16 21:56 Hemoglobin C Crystals Not Reportable 06/06/16 21:56 Schistocytes Not Reportable 06/06/16 21:56 Malaria parasites Not Reportable 06/06/16 21:56 [place] Bodies Not Reportable 06/06/16 21:56 Hem Pathologist Commnt No 06/06/16 21:56 PT 15.9 Sec. (12.2-14.9) H 06/06/16 21:56 INR 1.28 (0.87-1.13) H 06/06/16 21:56 VBG pH 7.437 (7.320-7.420) H 06/06/16 21:56 Sodium 140 mmol/L (137-145) 06/19/16 08:27 Potassium 4.0 mmol/L (3.6-5.0) 06/19/16 08:27 Chloride 100.0 mmol/L (98-107) 06/19/16 08:27 Carbon Dioxide 30 mmol/L (22-30) 06/19/16 08:27 Anion Gap 14 mmol/L 06/19/16 08:27 BUN 15 mg/dL (7-17) 06/19/16 08:27 Creatinine 0.7 mg/dL (0.7-1.2) 06/19/16 08:27 Estimated GFR > 60 ml/min 06/19/16 08:27 BUN/Creatinine Ratio 21.42 % 06/19/16 08:27 Glucose 132 mg/dL (65-100) H 06/19/16 08:27 POC Glucose 88 (70-105) 06/16/16 17:33 Osmolality 286 Mosm/kg 06/14/16 05:53 Lactic Acid 1.2 mmol/L (0.7-2.0) 06/11/16 14:32 Calcium 8.5 mg/dL (8.4-10.2) 06/19/16 08:27 Phosphorus 3.3 mg/dL (2.5-4.5) 06/17/16 05:21 Magnesium 2.2 mg/dL (1.7-2.3) 06/17/16 05:21 Total Bilirubin 0.9 mg/dL (0.1-1.2) 06/11/16 04:52 AST 34 units/L (5-40) 06/11/16 04:52 ALT 51 units/L (7-56) 06/11/16 04:52 Alkaline Phosphatase 48 units/L (35-129) 06/11/16 04:52 Ammonia 59.0 umol/L (25-60) 06/14/16 17:53 Total Creatine Kinase 194 units/L (30-135) H 06/12/16 06:14 Total Protein 6.8 g/dL (6.3-8.2) 06/11/16 04:52 Albumin 3.3 g/dL (3.9-5) L 06/11/16 04:52 Albumin/Globulin Ratio 0.9 % 06/11/16 04:52 Urine Color Yellow (Yellow) 06/13/16 02:15 Urine Turbidity Slightly-cloudy (Clear) 06/13/16 02:15 Urine pH 7.0 (5.0-7.0) 06/13/16 02:15 Ur Specific [place] 1.018 (1.003-1.030) 06/13/16 02:15 Urine Protein <15 mg/dl mg/dL (Negative) 06/13/16 02:15 Urine Glucose (UA) 50 mg/dL (Negative) 06/13/16 02:15 Urine Ketones Neg mg/dL (Negative) 06/13/16 02:15 Urine Blood Mod (Negative) 06/13/16 02:15 Urine Nitrite Neg (Negative) 06/13/16 02:15 Ur Reducing Substances Not Reportable 06/06/16 21:23 Urine Bilirubin Neg (Negative) 06/13/16 02:15 Urine Ictotest Not Reportable 06/06/16 21:23 Urine Urobilinogen < 2.0 mg/dL (<2.0) 06/13/16 02:15 Ur Leukocyte Esterase Tr (Negative) 06/13/16 02:15 Urine WBC (Auto) 5.0 /HPF (0.0-6.0) 06/13/16 02:15 Urine RBC (Auto) 39.0 /HPF (0.0-6.0) 06/13/16 02:15 U Epithel Cells (Auto) < 1.0 /HPF (0-13.0) 06/13/16 02:15 Amorphous Crystals Few 06/13/16 02:15 Urine Mucus 3+ /HPF 06/13/16 02:15 Urine Osmolality 795 Mosm/kg 06/08/16 10:13 Urine Sodium 26 mEq/L 06/08/16 10:13 Urine HCG, Qual Negative (Negative) 06/06/16 21:23 Urine Opiates Screen Presumptive negative 06/06/16 21:23 Urine Methadone Screen Presumptive negative 06/06/16 21:23 Ur Barbiturates Screen Presumptive negative 06/06/16 21:23 Ur Phencyclidine Scrn Presumptive negative 06/06/16 21:23 Ur Amphetamines Screen Presumptive negative 06/06/16 21:23 U Benzodiazepines Scrn Presumptive negative 06/06/16 21:23 [place] 0.1 mmol/L (0.0-1.2) 06/09/16 13:30 Urine Cocaine Screen Presumptive negative 06/06/16 21:23 U Marijuana (THC) Screen Presumptive negative 06/06/16 21:23 Drugs of Abuse Note Disclamer 06/06/16 21:23 Plasma/Serum Alcohol < 0.01 gm% (0-0.07) 06/06/16 21:56
[2016-06-19] MEDS: LEVAQUIN 750MG/150ML 750 MG/150 ML BAG IV SCH (18:35)
[2016-06-20] MEDS: FLAGYL 500 MG/100 ML 100 ML IV SCH (05:50)
[2016-06-20 06:26] LABS: Hematocrit 41.3 % (30.3-42.9); Hemoglobin 13.5 gm/dl (10.1-14.3); Mean Corpuscular HGB Conc 33 % (30-34); Mean Corpuscular Hemoglobin 29 pg (28-32); Mean Corpuscular Volume 89 fl (79-97); Platelet Count 316 K/mm3 (140-440); Red Blood Count 4.62 M/mm3 (3.65-5.03); Red Cell Distribution Width 13.1 % (13.2-15.2); White Blood Count 11.3 K/mm3 (4.5-11.0)
[2016-06-20 06:47] LABS: Anion Gap 12 mmol/L; BUN/Creatinine Ratio 25.71; Blood Urea Nitrogen 18 mg/dL (7-17); Calcium 8.7 mg/dL (8.4-10.2); Carbon Dioxide 32 mmol/L (22-30); Chloride 100.7 mmol/L (98-107); Glucose 147 mg/dL (65-100); Potassium 3.7 mmol/L (3.6-5.0); Sodium 141 mmol/L (137-145)
[2016-06-20] MEDS: K-PHOS NEUTRAL FEEDTUBE SCH ×4 (09:48→22:05)
[2016-06-20] MEDS: VIMPAT PO SCH ×2 (09:48→22:06)
[2016-06-20] MEDS: LOVENOX SUB-Q SCH (09:48)
--- NOTE | 2016-06-20 11:10 | Progress Note ---
Assessment and Plan Assessment and plan: Sepsis. Continue Levaquin IV. Blood cultures have been negative. Right lower lobe pneumonia. Aspiration precautions. Continue Levaquin iv Acute kidney injury from ATN/sepsis. Resolved. HypoKalemia. Resolved. 10 3.7 today Hypernatremia . This is now resolved. Sodium 141 today. Nephrology following. Continue iv fluids.. Rhabdomyolysis. Improving, creatinine kinase improved. Schizophrenia, catatonic. Improved. Psych following. Dysphagia. Patient is now fully awake alert. Modified Barium swallow done. Started on pured diet. DVT prophylaxis. Lovenox daily. Full code status History Interval history: Patient with sepsis, pneumonia, [place]OR[place], No more fever, more alert, Now talking, started eating Hospitalist Physical - Physical exam Narrative exam: Gen appearance: Not in acute distress, HEENT: Normocephalic,atraumatic Neck : supple, no JVD Lungs: Clear to auscultation bilaterally, no crackles or wheezes. Heart : S1 and S2 regular, no murmurs rubs or gallop, Abdomen: soft nontender, nondistended, normal bowel sounds Extremities: No edema, no clubbing or cyanosis, Neuro :awake,alert, oriented to person, place and time, Talks in short sentences.moves all ext Psych: calm skin:no rashes - Constitutional Vitals: Temp Pulse Resp BP Pulse Ox 98.6 F 113 H 15 103/57 98 06/20/16 07:40 06/20/16 07:40 06/20/16 07:40 06/20/16 07:40 06/20/16 08:49 General appearance: Present: no acute distress, well-nourished Results - Labs CBC & Chem 7: 06/20/16 05:57 06/20/16 05:57 Labs: Laboratory Last Values WBC 11.3 K/mm3 (4.5-11.0) H 06/20/16 05:57 RBC 4.62 M/mm3 (3.65-5.03) 06/20/16 05:57 Hgb 13.5 gm/dl (10.1-14.3) 06/20/16 05:57 Hct 41.3 % (30.3-42.9) 06/20/16 05:57 MCV 89 fl (79-97) 06/20/16 05:57 MCH 29 pg (28-32) 06/20/16 05:57 MCHC 33 % (30-34) 06/20/16 05:57 RDW 13.1 % (13.2-15.2) L 06/20/16 05:57 Plt Count 316 K/mm3 (140-440) 06/20/16 05:57 Lymph % (Auto) 6.0 % (13.4-35.0) L 06/08/16 06:39 [place] % (Auto) 5.5 % (0.0-7.3) 06/08/16 06:39 Eos % (Auto) 0.2 % (0.0-4.3) 06/08/16 06:39 Baso % (Auto) 0.1 % (0.0-1.8) 06/08/16 06:39 Lymph # 0.6 K/mm3 (1.2-5.4) L 06/08/16 06:39 [place] # 0.6 K/mm3 (0.0-0.8) 06/08/16 06:39 Eos # 0.0 K/mm3 (0.0-0.4) 06/08/16 06:39 Baso # 0.0 K/mm3 (0.0-0.1) 06/08/16 06:39 Add Manual Diff Complete 06/06/16 21:56 Total Counted 100 06/06/16 21:56 Seg Neutrophils % 88.2 % (40.0-70.0) H 06/08/16 06:39 Seg Neuts % (Manual) 95.0 % (40.0-70.0) H 06/06/16 21:56 Band Neutrophils % 1.0 % 06/06/16 21:56 Lymphocytes % (Manual) 3.0 % (13.4-35.0) L 06/06/16 21:56 Reactive Lymphs % (Man) 0 % 06/06/16 21:56 Monocytes % (Manual) 1.0 % (0.0-7.3) 06/06/16 21:56 Eosinophils % (Manual) 0 % (0.0-4.3) 06/06/16 21:56 Basophils % (Manual) 0 % (0.0-1.8) 06/06/16 21:56 Metamyelocytes % 0 % 06/06/16 21:56 Myelocytes % 0 % 06/06/16 21:56 Promyelocytes % 0 % 06/06/16 21:56 Blast Cells % 0 % 06/06/16 21:56 Nucleated RBC % Not Reportable 06/06/16 21:56 Seg Neutrophils # 9.2 K/mm3 (1.8-7.7) H 06/08/16 06:39 Seg Neutrophils # Man 16.7 K/mm3 (1.8-7.7) H 06/06/16 21:56 Band Neutrophils # 0.2 K/mm3 06/06/16 21:56 Lymphocytes # (Manual) 0.5 K/mm3 (1.2-5.4) L 06/06/16 21:56 Abs React Lymphs (Man) 0.0 K/mm3 06/06/16 21:56 Monocytes # (Manual) 0.2 K/mm3 (0.0-0.8) 06/06/16 21:56 Eosinophils # (Manual) 0.0 K/mm3 (0.0-0.4) 06/06/16 21:56 Basophils # (Manual) 0.0 K/mm3 (0.0-0.1) 06/06/16 21:56 Metamyelocytes # 0.0 K/mm3 06/06/16 21:56 Myelocytes # 0.0 K/mm3 06/06/16 21:56 Promyelocytes # 0.0 K/mm3 06/06/16 21:56 Blast Cells # 0.0 K/mm3 06/06/16 21:56 WBC Morphology Not Reportable 06/06/16 21:56 Hypersegmented Neuts Not Reportable 06/06/16 21:56 Hyposegmented Neuts Not Reportable 06/06/16 21:56 Hypogranular Neuts Not Reportable 06/06/16 21:56 Smudge Cells Not Reportable 06/06/16 21:56 Toxic Granulation Not Reportable 06/06/16 21:56 Toxic Vacuolation Not Reportable 06/06/16 21:56 Dohle Bodies Not Reportable 06/06/16 21:56 Pelger-Huet Anomaly Not Reportable 06/06/16 21:56 Guerda Rods Not Reportable 06/06/16 21:56 Platelet Estimate Consistent w auto 06/06/16 21:56 Clumped Platelets Not Reportable 06/06/16 21:56 Plt Clumps, EDTA Not Reportable 06/06/16 21:56 Large Platelets Not Reportable 06/06/16 21:56 Giant Platelets Not Reportable 06/06/16 21:56 Platelet Satelliting Not Reportable 06/06/16 21:56 Plt Morphology Comment Not Reportable 06/06/16 21:56 RBC Morphology Normal 06/06/16 21:56 Dimorphic RBCs Not Reportable 06/06/16 21:56 Polychromasia Not Reportable 06/06/16 21:56 Hypochromasia Not Reportable 06/06/16 21:56 Poikilocytosis Not Reportable 06/06/16 21:56 Anisocytosis Not Reportable 06/06/16 21:56 Microcytosis Not Reportable 06/06/16 21:56 Macrocytosis Not Reportable 06/06/16 21:56 Spherocytes Not Reportable 06/06/16 21:56 Pappenheimer Bodies Not Reportable 06/06/16 21:56 Sickle Cells Not Reportable 06/06/16 21:56 Target Cells Not Reportable 06/06/16 21:56 Tear Drop Cells Not Reportable 06/06/16 21:56 Ovalocytes Not Reportable 06/06/16 21:56 Helmet Cells Not Reportable 06/06/16 21:56 Tamay[place] Bodies Not Reportable 06/06/16 21:56 [place] Rings Not Reportable 06/06/16 21:56 Lane Cells Not Reportable 06/06/16 21:56 Bite Cells Not Reportable 06/06/16 21:56 Crenated Cell Not Reportable 06/06/16 21:56 Elliptocytes Not Reportable 06/06/16 21:56 Acanthocytes (Spur) Not Reportable 06/06/16 21:56 Rouleaux Not Reportable 06/06/16 21:56 Hemoglobin C Crystals Not Reportable 06/06/16 21:56 Schistocytes Not Reportable 06/06/16 21:56 Malaria parasites Not Reportable 06/06/16 21:56 Chago Bodies Not Reportable 06/06/16 21:56 Hem Pathologist Commnt No 06/06/16 21:56 PT 15.9 Sec. (12.2-14.9) H 06/06/16 21:56 INR 1.28 (0.87-1.13) H 06/06/16 21:56 VBG pH 7.437 (7.320-7.420) H 06/06/16 21:56 Sodium 141 mmol/L (137-145) 06/20/16 05:57 Potassium 3.7 mmol/L (3.6-5.0) 06/20/16 05:57 Chloride 100.7 mmol/L (98-107) 06/20/16 05:57 Carbon Dioxide 32 mmol/L (22-30) H 06/20/16 05:57 Anion Gap 12 mmol/L 06/20/16 05:57 BUN 18 mg/dL (7-17) H 06/20/16 05:57 Creatinine 0.7 mg/dL (0.7-1.2) 06/20/16 05:57 Estimated GFR > 60 ml/min 06/20/16 05:57 BUN/Creatinine Ratio 25.71 % 06/20/16 05:57 Glucose 147 mg/dL (65-100) H 06/20/16 05:57 POC Glucose 88 (70-105) 06/16/16 17:33 Osmolality 286 Mosm/kg 06/14/16 05:53 Lactic Acid 1.2 mmol/L (0.7-2.0) 06/11/16 14:32 Calcium 8.7 mg/dL (8.4-10.2) 06/20/16 05:57 Phosphorus 3.3 mg/dL (2.5-4.5) 06/17/16 05:21 Magnesium 2.2 mg/dL (1.7-2.3) 06/17/16 05:21 Total Bilirubin 0.9 mg/dL (0.1-1.2) 06/11/16 04:52 AST 34 units/L (5-40) 06/11/16 04:52 ALT 51 units/L (7-56) 06/11/16 04:52 Alkaline Phosphatase 48 units/L (35-129) 06/11/16 04:52 Ammonia 59.0 umol/L (25-60) 06/14/16 17:53 Total Creatine Kinase 194 units/L (30-135) H 06/12/16 06:14 Total Protein 6.8 g/dL (6.3-8.2) 06/11/16 04:52 Albumin 3.3 g/dL (3.9-5) L 06/11/16 04:52 Albumin/Globulin Ratio 0.9 % 06/11/16 04:52 Urine Color Yellow (Yellow) 06/13/16 02:15 Urine Turbidity Slightly-cloudy (Clear) 06/13/16 02:15 Urine pH 7.0 (5.0-7.0) 06/13/16 02:15 Ur Specific [place] 1.018 (1.003-1.030) 06/13/16 02:15 Urine Protein <15 mg/dl mg/dL (Negative) 06/13/16 02:15 Urine Glucose (UA) 50 mg/dL (Negative) 06/13/16 02:15 Urine Ketones Neg mg/dL (Negative) 06/13/16 02:15 Urine Blood Mod (Negative) 06/13/16 02:15 Urine Nitrite Neg (Negative) 06/13/16 02:15 Ur Reducing Substances Not Reportable 06/06/16 21:23 Urine Bilirubin Neg (Negative) 06/13/16 02:15 Urine Ictotest Not Reportable 06/06/16 21:23 Urine Urobilinogen < 2.0 mg/dL (<2.0) 06/13/16 02:15 Ur Leukocyte Esterase Tr (Negative) 06/13/16 02:15 Urine WBC (Auto) 5.0 /HPF (0.0-6.0) 06/13/16 02:15 Urine RBC (Auto) 39.0 /HPF (0.0-6.0) 06/13/16 02:15 U Epithel Cells (Auto) < 1.0 /HPF (0-13.0) 06/13/16 02:15 Amorphous Crystals Few 06/13/16 02:15 Urine Mucus 3+ /HPF 06/13/16 02:15 Urine Osmolality 795 Mosm/kg 06/08/16 10:13 Urine Sodium 26 mEq/L 06/08/16 10:13 Urine HCG, Qual Negative (Negative) 06/06/16 21:23 Urine Opiates Screen Presumptive negative 06/06/16 21:23 Urine Methadone Screen Presumptive negative 06/06/16 21:23 Ur Barbiturates Screen Presumptive negative 06/06/16 21:23 Ur Phencyclidine Scrn Presumptive negative 06/06/16 21:23 Ur Amphetamines Screen Presumptive negative 06/06/16 21:23 U Benzodiazepines Scrn Presumptive negative 06/06/16 21:23 [place] 0.1 mmol/L (0.0-1.2) 06/09/16 13:30 Urine Cocaine Screen Presumptive negative 06/06/16 21:23 U Marijuana (THC) Screen Presumptive negative 06/06/16 21:23 Drugs of Abuse Note Disclamer 06/06/16 21:23 Plasma/Serum Alcohol < 0.01 gm% (0-0.07) 06/06/16 21:56
[2016-06-20] MEDS ORDERED: FLAGYL 500 MG/100 ML 500 MG/100 ML BAG IV SCH (14:00)
[2016-06-20] MEDS: LEVAQUIN 750MG/150ML 750 MG/150 ML BAG IV SCH ×2 (18:27→18:28)
[2016-06-21] MEDS: VIMPAT PO SCH ×2 (09:55→23:18)
[2016-06-21] MEDS: K-PHOS NEUTRAL FEEDTUBE SCH ×4 (09:55→23:18)
[2016-06-21] MEDS: LOVENOX SUB-Q SCH (09:55)
--- NOTE | 2016-06-21 09:55 | Progress Note ---
Assessment and Plan Assessment and plan: Sepsis. Discontinue levaquin today. Blood cultures have been negative. Right lower lobe pneumonia. Aspiration precautions. Complete Levaquin today Acute kidney injury from ATN/sepsis. Resolved. HypoKalemia. Resolved. Potassium 3.7 yesterday Hypernatremia . This is now resolved. iv fluids discontinued. Rhabdomyolysis. Improving, creatinine kinase improved. Schizophrenia, catatonic. Improved. Psych following. Dysphagia. Patient is now fully awake alert. Modified Barium swallow done. Started on pured diet. DVT prophylaxis. Lovenox daily. Full code status disposition. She needs inpatient psych medically stable for discharge. History Interval history: Patient with sepsis, pneumonia, [place]OR[place], No more fever, more alert, Now talking, started eating Hospitalist Physical - Physical exam Narrative exam: Gen appearance: Not in acute distress, HEENT: Normocephalic,atraumatic Neck : supple, no JVD Lungs: Clear to auscultation bilaterally, no crackles or wheezes. Heart : S1 and S2 regular, no murmurs rubs or gallop, Abdomen: soft nontender, nondistended, normal bowel sounds Extremities: No edema, no clubbing or cyanosis, Neuro :awake,alert, oriented to person, place and time, Talks in short sentences.moves all ext Psych: calm skin:no rashes - Constitutional Vitals: Temp Pulse Resp BP Pulse Ox 98.9 F 114 H 20 111/78 99 06/20/16 23:56 06/20/16 23:56 06/20/16 23:56 06/20/16 15:00 06/21/16 08:22 General appearance: Present: no acute distress, well-nourished Results - Labs CBC & Chem 7: 06/20/16 05:57 06/20/16 05:57 Labs: Laboratory Last Values WBC 11.3 K/mm3 (4.5-11.0) H 06/20/16 05:57 RBC 4.62 M/mm3 (3.65-5.03) 06/20/16 05:57 Hgb 13.5 gm/dl (10.1-14.3) 06/20/16 05:57 Hct 41.3 % (30.3-42.9) 06/20/16 05:57 MCV 89 fl (79-97) 06/20/16 05:57 MCH 29 pg (28-32) 06/20/16 05:57 MCHC 33 % (30-34) 06/20/16 05:57 RDW 13.1 % (13.2-15.2) L 06/20/16 05:57 Plt Count 316 K/mm3 (140-440) 06/20/16 05:57 Lymph % (Auto) 6.0 % (13.4-35.0) L 06/08/16 06:39 [place] % (Auto) 5.5 % (0.0-7.3) 06/08/16 06:39 Eos % (Auto) 0.2 % (0.0-4.3) 06/08/16 06:39 Baso % (Auto) 0.1 % (0.0-1.8) 06/08/16 06:39 Lymph # 0.6 K/mm3 (1.2-5.4) L 06/08/16 06:39 [place] # 0.6 K/mm3 (0.0-0.8) 06/08/16 06:39 Eos # 0.0 K/mm3 (0.0-0.4) 06/08/16 06:39 Baso # 0.0 K/mm3 (0.0-0.1) 06/08/16 06:39 Add Manual Diff Complete 06/06/16 21:56 Total Counted 100 06/06/16 21:56 Seg Neutrophils % 88.2 % (40.0-70.0) H 06/08/16 06:39 Seg Neuts % (Manual) 95.0 % (40.0-70.0) H 06/06/16 21:56 Band Neutrophils % 1.0 % 06/06/16 21:56 Lymphocytes % (Manual) 3.0 % (13.4-35.0) L 06/06/16 21:56 Reactive Lymphs % (Man) 0 % 06/06/16 21:56 Monocytes % (Manual) 1.0 % (0.0-7.3) 06/06/16 21:56 Eosinophils % (Manual) 0 % (0.0-4.3) 06/06/16 21:56 Basophils % (Manual) 0 % (0.0-1.8) 06/06/16 21:56 Metamyelocytes % 0 % 06/06/16 21:56 Myelocytes % 0 % 06/06/16 21:56 Promyelocytes % 0 % 06/06/16 21:56 Blast Cells % 0 % 06/06/16 21:56 Nucleated RBC % Not Reportable 06/06/16 21:56 Seg Neutrophils # 9.2 K/mm3 (1.8-7.7) H 06/08/16 06:39 Seg Neutrophils # Man 16.7 K/mm3 (1.8-7.7) H 06/06/16 21:56 Band Neutrophils # 0.2 K/mm3 06/06/16 21:56 Lymphocytes # (Manual) 0.5 K/mm3 (1.2-5.4) L 06/06/16 21:56 Abs React Lymphs (Man) 0.0 K/mm3 06/06/16 21:56 Monocytes # (Manual) 0.2 K/mm3 (0.0-0.8) 06/06/16 21:56 Eosinophils # (Manual) 0.0 K/mm3 (0.0-0.4) 06/06/16 21:56 Basophils # (Manual) 0.0 K/mm3 (0.0-0.1) 06/06/16 21:56 Metamyelocytes # 0.0 K/mm3 06/06/16 21:56 Myelocytes # 0.0 K/mm3 06/06/16 21:56 Promyelocytes # 0.0 K/mm3 06/06/16 21:56 Blast Cells # 0.0 K/mm3 06/06/16 21:56 WBC Morphology Not Reportable 06/06/16 21:56 Hypersegmented Neuts Not Reportable 06/06/16 21:56 Hyposegmented Neuts Not Reportable 06/06/16 21:56 Hypogranular Neuts Not Reportable 06/06/16 21:56 Smudge Cells Not Reportable 06/06/16 21:56 Toxic Granulation Not Reportable 06/06/16 21:56 Toxic Vacuolation Not Reportable 06/06/16 21:56 Dohle Bodies Not Reportable 06/06/16 21:56 Pelger-Huet Anomaly Not Reportable 06/06/16 21:56 Guerda Rods Not Reportable 06/06/16 21:56 Platelet Estimate Consistent w auto 06/06/16 21:56 Clumped Platelets Not Reportable 06/06/16 21:56 Plt Clumps, EDTA Not Reportable 06/06/16 21:56 Large Platelets Not Reportable 06/06/16 21:56 Giant Platelets Not Reportable 06/06/16 21:56 Platelet Satelliting Not Reportable 06/06/16 21:56 Plt Morphology Comment Not Reportable 06/06/16 21:56 RBC Morphology Normal 06/06/16 21:56 Dimorphic RBCs Not Reportable 06/06/16 21:56 Polychromasia Not Reportable 06/06/16 21:56 Hypochromasia Not Reportable 06/06/16 21:56 Poikilocytosis Not Reportable 06/06/16 21:56 Anisocytosis Not Reportable 06/06/16 21:56 Microcytosis Not Reportable 06/06/16 21:56 Macrocytosis Not Reportable 06/06/16 21:56 Spherocytes Not Reportable 06/06/16 21:56 Pappenheimer Bodies Not Reportable 06/06/16 21:56 Sickle Cells Not Reportable 06/06/16 21:56 Target Cells Not Reportable 06/06/16 21:56 Tear Drop Cells Not Reportable 06/06/16 21:56 Ovalocytes Not Reportable 06/06/16 21:56 Helmet Cells Not Reportable 06/06/16 21:56 Tamayo-[place] Bodies Not Reportable 06/06/16 21:56 [place] Rings Not Reportable 06/06/16 21:56 [place] Cells Not Reportable 06/06/16 21:56 Bite Cells Not Reportable 06/06/16 21:56 Crenated Cell Not Reportable 06/06/16 21:56 Elliptocytes Not Reportable 06/06/16 21:56 Acanthocytes (Spur) Not Reportable 06/06/16 21:56 Rouleaux Not Reportable 06/06/16 21:56 Hemoglobin C Crystals Not Reportable 06/06/16 21:56 Schistocytes Not Reportable 06/06/16 21:56 Malaria parasites Not Reportable 06/06/16 21:56 Chago Bodies Not Reportable 06/06/16 21:56 Hem Pathologist Commnt No 06/06/16 21:56 PT 15.9 Sec. (12.2-14.9) H 06/06/16 21:56 INR 1.28 (0.87-1.13) H 06/06/16 21:56 VBG pH 7.437 (7.320-7.420) H 06/06/16 21:56 Sodium 141 mmol/L (137-145) 06/20/16 05:57 Potassium 3.7 mmol/L (3.6-5.0) 06/20/16 05:57 Chloride 100.7 mmol/L (98-107) 06/20/16 05:57 Carbon Dioxide 32 mmol/L (22-30) H 06/20/16 05:57 Anion Gap 12 mmol/L 06/20/16 05:57 BUN 18 mg/dL (7-17) H 06/20/16 05:57 Creatinine 0.7 mg/dL (0.7-1.2) 06/20/16 05:57 Estimated GFR > 60 ml/min 06/20/16 05:57 BUN/Creatinine Ratio 25.71 % 06/20/16 05:57 Glucose 147 mg/dL (65-100) H 06/20/16 05:57 POC Glucose 88 (70-105) 06/16/16 17:33 Osmolality 286 Mosm/kg 06/14/16 05:53 Lactic Acid 1.2 mmol/L (0.7-2.0) 06/11/16 14:32 Calcium 8.7 mg/dL (8.4-10.2) 06/20/16 05:57 Phosphorus 3.3 mg/dL (2.5-4.5) 06/17/16 05:21 Magnesium 2.2 mg/dL (1.7-2.3) 06/17/16 05:21 Total Bilirubin 0.9 mg/dL (0.1-1.2) 06/11/16 04:52 AST 34 units/L (5-40) 06/11/16 04:52 ALT 51 units/L (7-56) 06/11/16 04:52 Alkaline Phosphatase 48 units/L (35-129) 06/11/16 04:52 Ammonia 59.0 umol/L (25-60) 06/14/16 17:53 Total Creatine Kinase 194 units/L (30-135) H 06/12/16 06:14 Total Protein 6.8 g/dL (6.3-8.2) 06/11/16 04:52 Albumin 3.3 g/dL (3.9-5) L 06/11/16 04:52 Albumin/Globulin Ratio 0.9 % 06/11/16 04:52 Urine Color Yellow (Yellow) 06/13/16 02:15 Urine Turbidity Slightly-cloudy (Clear) 06/13/16 02:15 Urine pH 7.0 (5.0-7.0) 06/13/16 02:15 Ur Specific [place] 1.018 (1.003-1.030) 06/13/16 02:15 Urine Protein <15 mg/dl mg/dL (Negative) 06/13/16 02:15 Urine Glucose (UA) 50 mg/dL (Negative) 06/13/16 02:15 Urine Ketones Neg mg/dL (Negative) 06/13/16 02:15 Urine Blood Mod (Negative) 06/13/16 02:15 Urine Nitrite Neg (Negative) 06/13/16 02:15 Ur Reducing Substances Not Reportable 06/06/16 21:23 Urine Bilirubin Neg (Negative) 06/13/16 02:15 Urine Ictotest Not Reportable 06/06/16 21:23 Urine Urobilinogen < 2.0 mg/dL (<2.0) 06/13/16 02:15 Ur Leukocyte Esterase Tr (Negative) 06/13/16 02:15 Urine WBC (Auto) 5.0 /HPF (0.0-6.0) 06/13/16 02:15 Urine RBC (Auto) 39.0 /HPF (0.0-6.0) 06/13/16 02:15 U Epithel Cells (Auto) < 1.0 /HPF (0-13.0) 06/13/16 02:15 Amorphous Crystals Few 06/13/16 02:15 Urine Mucus 3+ /HPF 06/13/16 02:15 Urine Osmolality 795 Mosm/kg 06/08/16 10:13 Urine Sodium 26 mEq/L 06/08/16 10:13 Urine HCG, Qual Negative (Negative) 06/06/16 21:23 Urine Opiates Screen Presumptive negative 06/06/16 21:23 Urine Methadone Screen Presumptive negative 06/06/16 21:23 Ur Barbiturates Screen Presumptive negative 06/06/16 21:23 Ur Phencyclidine Scrn Presumptive negative 06/06/16 21:23 Ur Amphetamines Screen Presumptive negative 06/06/16 21:23 U Benzodiazepines Scrn Presumptive negative 06/06/16 21:23 [place] 0.1 mmol/L (0.0-1.2) 06/09/16 13:30 Urine Cocaine Screen Presumptive negative 06/06/16 21:23 U Marijuana (THC) Screen Presumptive negative 06/06/16 21:23 Drugs of Abuse Note Disclamer 06/06/16 21:23 Plasma/Serum Alcohol < 0.01 gm% (0-0.07) 06/06/16 21:56
[2016-06-21] MEDS ORDERED: LEVAQUIN PO SCH (11:00)
[2016-06-22 06:28] LABS: Hematocrit 40.8 % (30.3-42.9); Hemoglobin 13.6 gm/dl (10.1-14.3); Mean Corpuscular HGB Conc 33 % (30-34); Mean Corpuscular Hemoglobin 30 pg (28-32); Mean Corpuscular Volume 90 fl (79-97); Platelet Count 320 K/mm3 (140-440); Red Blood Count 4.54 M/mm3 (3.65-5.03); Red Cell Distribution Width 13.6 % (13.2-15.2); White Blood Count 11.6 K/mm3 (4.5-11.0)
[2016-06-22 06:48] LABS: Anion Gap 15 mmol/L; BUN/Creatinine Ratio 22.85; Blood Urea Nitrogen 16 mg/dL (7-17); Calcium 8.9 mg/dL (8.4-10.2); Carbon Dioxide 32 mmol/L (22-30); Chloride 105.8 mmol/L (98-107); Glucose 127 mg/dL (65-100); Potassium 4.2 mmol/L (3.6-5.0); Sodium 149 mmol/L (137-145)
[2016-06-22] MEDS: LOVENOX SUB-Q SCH (09:08)
[2016-06-22] MEDS: VIMPAT PO SCH (09:08)
[2016-06-22] MEDS: K-PHOS NEUTRAL FEEDTUBE SCH ×2 (09:08→14:44)
--- NOTE | 2016-06-22 12:53 | Discharge Summary ---
Providers - Providers Date of Admission: 06/07/16 03:42 Date of discharge: 06/22/16 Attending physician: RON GUTIERREZ 06/07/16 09:31 Consult to Mental Health [CONS] Routine Reason For Exam: schizophrenia Place consult to:: mental health Notified:: ROMANA Phone number called:: [phone] Was contact made?: Yes If yes, spoke with:: ROMANA Time called:: 10:26 Comment:: HASEEB NOTIFIED 06/07/16 13:55 Speech Therapy Evaluation and Treat [CONS] Routine Reason For Exam: Dysphagia 06/09/16 11:33 Consult to Physician [CONS] Routine Consulting Provider: JLUIS COSTELLO Reason For Exam: hypernatremia Place consult to:: dr. costello Notified:: Phone number called:: [phone] Was contact made?: Yes If yes, spoke with:: DR. costello Time called:: 11:50 06/09/16 12:07 Consult to Physician [CONS] Routine Consulting Provider: JOSEPH CABRAL Reason For Exam: dysphagia Place consult to:: dr. cabral Notified:: answer service Phone number called:: Was contact made?: Yes If yes, spoke with:: margoth Time called:: 12:53 06/09/16 13:01 Consult to Physician [CONS] Routine Consulting Provider: MARISSA FRANCE Reason For Exam: AMS Place consult to:: dr. france Notified:: answering service Phone number called:: Was contact made?: Yes If yes, spoke with:: [email or web address] Time called:: 13:06 06/10/16 10:34 Speech Therapy Evaluation and Treat [CONS] Routine Reason For Exam: Tube feed recommendation 06/14/16 08:22 Speech Therapy Evaluation and Treat [CONS] Routine Reason For Exam: swallow eval 06/14/16 17:16 Consult to Dietitian/Nutrition [CONS] Routine Physician Instructions: Reason For Exam: Reason for Consult: Write/Manage Tube Feeding 06/16/16 15:20 Consult to Wound/ET Nurse [CONS] Urgent Reason For Exam: wound eval right hand, right buttocks, and r heel 06/17/16 13:13 Speech Therapy Evaluation and Treat [CONS] Urgent Reason For Exam: swallow reeval 06/18/16 10:57 Physical Therapy Evaluation and Treat [CONS] Routine Comment: Reason For Exam: DE-CONDITIONING 06/18/16 11:43 Occupational Therapy Evaluate and Treat [CONS] Routine Comment: Reason For Exam: deconditioning Primary care physician: JORGITO FAN Hospitalization Reason for admission: sepsis Condition: Fair Pertinent studies: CT scan head unremarkable chest x-ray rt ll PNA Procedures: NG tube placement. Patient had barium swallow which showed stable 4. Diet Hospital course: 46-year-old female that presented from [facility] initially found to be tachycardic dyspnea hypoxic. Workup patient found to have right lower lobe pneumonia. Patient was also found to be septic via criteria. Placed placed on Levaquin and patient defervesced well decreased fever curve much more alert at her baseline. Decreased leukocytosis. Blood cultures were negative throughout hospital stay. Asthma course complicated by vasomotor nephropathy and hypokalemia that will both resolved as well. Patient also had a permanent Treem is secondary to decreased volume is well this was corrected with free water and IV fluids. Rhabdo also corrected as well. Hospital course also complicated by schizophrenia paranoid schizophrenia patient remains in a catatonic state. Psych has been following patient. Currently at baseline stable to go home. Patient hospital course was prolonged and complicated by coordination of care mostly. Patient required extensive coordination with getting home health PT durable equipment to the home. Also treating hypernatremia with free water. Also coronary free water the importance of water. Also discussing the continuity of care and follow with primary care physician. Disposition: DC/[place] HOME UNDER HOME HEALTH Time spent for discharge: 38 min - Discharge Diagnoses (1) Catatonia Status: Acute Comment: Secondary to paranoid schizophrenia. We'll need to continue psychiatric meds and psychiatric referral. She remains in catatonic state but is at baseline. Able to communicate states she's hungry she's thirsty. (2) Hypernatremia Status: Acute Comment: Resolving with free water. Important to let family know that patient will require at least 3 L of water daily. (3) Hypokalemia Status: Acute Comment: Resolved (4) Pneumonia Status: Acute Qualifiers: Pneumonia type: aspiration pneumonia Aspiration pneumonia type: due to regurgitated food Laterality: right Lung location: lower lobe of lung Qualified Code(s): J69.0 - Pneumonitis due to inhalation of food and vomit Comment: Patient with aspiration pneumonia remains at risk for aspiration pneumonia with catatonic schizophrenia. Patient is contracted and shortly chair bound. Pneumonia treated however. Antibodies discontinued. (5) Sepsis Status: Acute Qualifiers: Sepsis type: S Comment: Sepsis resolved. Core Measure Documentation - Palliative Care Palliative Care/ Comfort Measures: Not Applicable - Core Measures Any of the following diagnoses?: none Exam - Constitutional Vitals: Temp Pulse Resp BP Pulse Ox 97.6 F 119 H 16 130/86 99 06/22/16 07:44 06/22/16 07:44 06/22/16 07:44 06/22/16 07:44 06/22/16 09:36 General appearance: Present: no acute distress - EENT Eyes: Present: PERRL, EOM intact ENT: clear oral mucosa, other (decreased hearing poor cognition poor residential) - Neck Neck: Present: supple, normal ROM, carotid bruits. Absent: rigidity, enlarged thyroid, masses or JVD, cervical LAD - Respiratory Respiratory effort: normal, other (normal until anxious) - Cardiovascular Rhythm: regular Heart Sounds: Present: S1 & S2 - Extremities Extremity abnormal: other (contractures at wrist and lower extremities. 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
[2016-06-22 16:24] VITALS: BP 129/79
== END 2016-06-22 19:30 | disposition home health service (06) | DRG 871 ==
LOC: ED 20:25 → EEVIPCON 20:25 → 3A 06-07 03:42
PROVIDERS: ADMIT Hospitalist; ATTEND Internal Medicine
PROC: 0DH63UZ Insertion of Feeding Device into Stomach, Percutaneous Approach (ICD-10-PCS; principal; 2016-06-09)
DX: A41.9 Sepsis, unspecified organism (principal); N17.0 Acute kidney failure with tubular necrosis; J69.0 Pneumonitis due to inhalation of food and vomit; F20.2 Catatonic schizophrenia; E87.0 Hyperosmolality and hypernatremia; E46 Unspecified protein-calorie malnutrition; M62.82 Rhabdomyolysis; F20.0 Paranoid schizophrenia; E87.6 Hypokalemia; R13.10 Dysphagia, unspecified; E86.0 Dehydration; R09.02 Hypoxemia; Z68.25 Body mass index [BMI] 25.0-25.9, adult
CPT/HCPCS: 36415; 70450; 71010; 74000; 74230; 80048; 80053; 80178; 80307; 80320; 81001; 81025; 82140; 82550; 82805; 82962; 83735; 83930; 83935; 84100; 84295; 84300; 85007; 85025; 85027; 85610; 87040; 87086; 93005; 93010; 94760; 96365; 96366; 96367; 96368; C9254; G0480; G8978-GP; G8979-GP; G8987-GO; G8988-GO; G8989-GO; G8996-GN; G8997-GN; G8998-GN; J0456; J0696; J1630; J1650; J1956; J2270; J2405; J2543; J3480; J7030; J7040; J7050; J7070